=== PATIENT | male | born 1955 | race American Indian/Alaskan Native ===

== ENCOUNTER 2020-12-18 13:10 | Emergency (ER) | payer MEDICAID ==
[2020-12-18] MEDS ORDERED: SODIUM CHLORIDE 0.9% 500 ML 500 ML IV ONE (14:03)
--- NOTE | 2020-12-18 14:15 | Emergency Department Report ---
ED General Adult HPI - General Chief complaint: BP Check / Ring removal req Stated complaint: HYPOTENSION Time Seen by Provider: 12/18/20 13:48 Source: EMS Mode of arrival: Stretcher Limitations: Altered Mental Status - History of Present Illness Initial comments: 65-year-old male, history of diabetes, ESRD, presents to ED from dialysis with hypotension. BP was 90/50 at dialysis. History obtained from EMS. Per jail, patient is nonverbal. -: This afternoon Consistency: constant Treatments Prior to Arrival: none - Related Data Allergies Allergy/AdvReac Type Severity Reaction Status Date / Time No Known Allergies Allergy Unverified 12/18/20 14:02 ED Review of Systems ROS: Stated complaint: HYPOTENSION Other details as noted in HPI Comment: Unobtainable due to pts medical conditions ED Physical Exam - General Limitations: Altered Mental Status General appearance: alert, in no apparent distress - Head Head exam: Present: atraumatic, normocephalic - Eye Eye exam: Present: normal appearance - ENT ENT exam: Present: mucous membranes dry - Neck Neck exam: Present: normal inspection - Respiratory Respiratory exam: Present: normal lung sounds bilaterally. Absent: respiratory distress - Cardiovascular Cardiovascular Exam: Present: regular rate, normal rhythm - GI/Abdominal GI/Abdominal exam: Present: soft, other (PEG tube in place). Absent: distended, tenderness - Extremities Exam Extremities exam: Present: normal inspection - Neurological Exam Neurological exam: Present: alert, other (Nonverbal) - Psychiatric Psychiatric exam: Present: flat affect - Skin Skin exam: Present: warm, dry, intact, normal color ED Course Vital Signs 12/18/20 12/18/20 12/18/20 13:29 14:39 15:32 Temperature 97.7 F Pulse Rate 103 H 98 H 99 H Respiratory 22 20 20 Rate Blood Pressure 110/71 107/70 111/62 [l] O2 Sat by Pulse 99 99 100 Oximetry 12/18/20 12/18/20 16:59 17:29 Temperature Pulse Rate 99 H 98 H Respiratory 18 18 Rate Blood Pressure 122/80 122/80 [l] O2 Sat by Pulse 100 100 Oximetry ED Medical Decision Making - Lab Data Result diagrams: 12/18/20 14:16 12/18/20 14:16 - Medical Decision Making 65-year-old male presents to ED from dialysis with hypotension. Patient given 500 cc bolus here in the ED. O2 sats are normal. Patient is in no respiratory distress. Potassium is not elevated. Patient will be [facility] back [facility] at this time. Outpatient follow-up advised. - Differential Diagnosis Iatrogenic hypotension, hyperkalemia, pulmonary edema Critical care attestation.: If time is entered above; I have spent that time in minutes in the direct care of this critically ill patient, excluding procedure time. ED Disposition Clinical Impression: Hypotension of hemodialysis Disposition: DC-01 TO HOME OR SELFCARE Is pt being admited?: No Condition: Stable Instructions: Hypotension, [id number] Referrals: PRIMARY CARE, [Referring] - 3-5 Days Time of Disposition: 17:02
[2020-12-18 14:36] LABS: Basophils # (Auto) 0.1 K/mm3 (0.0-0.1); Basophils % (Auto) 0.4 % (0.0-1.8); Eosinophils % (Auto) 0.3 % (0.0-4.3); Hematocrit 33.9 % (35.5-45.6); Hemoglobin 11.1 gm/dl (11.8-15.2); Mean Corpuscular HGB Conc 33 % (32-34); Mean Corpuscular Volume 74 fl (84-94); Monocytes # (Auto) 1.4 K/mm3 (0.0-0.8); Monocytes % (Auto) 9.8 % (0.0-7.3); Platelet Count 457 K/mm3 (140-440); Red Blood Count 4.56 M/mm3 (3.65-5.03); Red Cell Distribution Width 19.8 % (13.2-15.2)
[2020-12-18 14:56] LABS: Calcium 8.6 mg/dL (8.4-10.2)
[2020-12-18 21:29] VITALS: BP 125/85
== END 2020-12-18 21:56 | disposition home or self-care (01) ==
LOC: ED 13:10
DX: I95.3 Hypotension of hemodialysis (principal)
CPT/HCPCS: 36415; 80048; 85025; 99284; J7040

== ENCOUNTER 2021-01-22 17:19 | Inpatient (IN) | payer MEDICAID ==
[2021-01-22] MEDS ORDERED: SODIUM CHLORIDE 0.9% 500 ML 500 ML IV ONE (17:47)
--- NOTE | 2021-01-22 17:51 | Emergency Department Report ---
HPI - General Chief Complaint: Fever Time Seen by Provider: 01/22/21 17:43 - HPI HPI: This is a 65-year-old -[place] male presents to the emergency department via EMS from [facility] after the patient was found to have a fever of 104 F. He did not receive dialysis and he was sent to the emergency department for further evaluation. EMS says that he went to dialysis from [facility], but we do not have any paperwork from them. The patient was here 1 time previously and it also appears that he came in from dialysis at that time. Per EMS, the patient is at his baseline mentation which includes being mostly nonverbal and nonambulatory. He did not receive any treatment prior to presentation. He has end-stage renal disease on hemodialysis on Monday/Monday/Monday and has a right subclavian CVC access. Patient also appears to have a history of anemia, secondary parathyroidism, and diabetes. ED Review of Systems ROS: Stated complaint: FEVER/SEPSIS Other details as noted in HPI Comment: Unobtainable due to pts medical conditions Physical Exam - Physical Exam Physical Exam: GENERAL: The patient is ill-appearing. HENT: Normocephalic. Atraumatic. Patient has moist mucous membranes. EYES: Pupils equal reactive to light bilaterally. NECK: Supple. Trachea is midline. CHEST/LUNGS: Slightly coarse. Mild tachypnea but no accessory muscle use. There is no respiratory distress noted. HEART/CARDIOVASCULAR: Regular. There is mild tachycardia. There is no murmur. ABDOMEN: Abdomen is soft, nontender. Patient has normal bowel sounds. There is no abdominal distention. SKIN: Skin is warm and dry. NEURO: Patient is awake but is nonverbal and does not follow commands. MUSCULOSKELETAL: There is no obvious deformity. ED Course - Consultations Consultation #1: 01/22/21 20:[address] Vieira, one of the mother helper on-call for [facility] nephrology. He agrees that the patient does not sound like he needs emergent dialysis and they will consult on the patient for possible dialysis in the morning. ED Medical Decision Making - Lab Data Result diagrams: 01/22/21 18:00 01/22/21 18:00 Lab Results 01/22/21 01/22/21 01/22/21 Range/Units 18:00 18:00 18:00 WBC 13.5 H (4.5-11.0) K/mm3 RBC 3.49 L (3.65-5.03) M/mm3 Hgb 8.2 L (11.8-15.2) gm/dl Hct 25.3 L (35.5-45.6) % MCV 73 L (84-94) fl MCH 23 L (28-32) pg MCHC 32 (32-34) % RDW 20.0 H (13.2-15.2) % Plt Count 416 (140-440) K/mm3 Lymph % (Auto) 6.0 L (13.4-35.0) % [place] % (Auto) 8.7 H (0.0-7.3) % Eos % (Auto) 0.0 (0.0-4.3) % Baso % (Auto) 0.2 (0.0-1.8) % Lymph # (Auto) 0.8 L (1.2-5.4) K/mm3 [place] # (Auto) 1.2 H (0.0-0.8) K/mm3 Eos # (Auto) 0.0 (0.0-0.4) K/mm3 Baso # (Auto) 0.0 (0.0-0.1) K/mm3 Seg Neutrophils % 85.1 H (40.0-70.0) % Seg Neutrophils # 11.5 H (1.8-7.7) K/mm3 Sodium 135 L (137-145) mmol/L Potassium 3.9 (3.6-5.0) mmol/L Chloride 94.8 L (98-107) mmol/L Carbon Dioxide 24 (22-30) mmol/L Anion Gap 20 mmol/L BUN 64 H (9-20) mg/dL Creatinine 3.7 H (0.8-1.3) mg/dL Estimated GFR 20 ml/min BUN/Creatinine Ratio 17 % Glucose 276 H (75-100) mg/dL Lactic Acid 3.40 H* (0.7-2.0) mmol/L Calcium 10.5 H (8.4-10.2) mg/dL Phosphorus (2.5-4.5) mg/dL Magnesium (1.7-2.3) mg/dL Total Bilirubin 0.30 (0.1-1.2) mg/dL AST 38 (5-40) units/L ALT 49 (7-56) units/L Alkaline Phosphatase 429 H (35-129) units/L NT-Pro-B Natriuret Pep (0-900) pg/mL Total Protein 6.8 (6.3-8.2) g/dL Albumin 2.9 L (3.9-5) g/dL Albumin/Globulin Ratio 0.7 % 01/22/21 01/22/21 01/22/21 Range/Units 18:00 18:00 19:03 WBC (4.5-11.0) K/mm3 RBC (3.65-5.03) M/mm3 Hgb (11.8-15.2) gm/dl Hct (35.5-45.6) % MCV (84-94) fl MCH (28-32) pg MCHC (32-34) % RDW (13.2-15.2) % Plt Count (140-440) K/mm3 Lymph % (Auto) (13.4-35.0) % [place] % (Auto) (0.0-7.3) % Eos % (Auto) (0.0-4.3) % Baso % (Auto) (0.0-1.8) % Lymph # (Auto) (1.2-5.4) K/mm3 [place] # (Auto) (0.0-0.8) K/mm3 Eos # (Auto) (0.0-0.4) K/mm3 Baso # (Auto) (0.0-0.1) K/mm3 Seg Neutrophils % (40.0-70.0) % Seg Neutrophils # (1.8-7.7) K/mm3 Sodium (137-145) mmol/L Potassium (3.6-5.0) mmol/L Chloride (98-107) mmol/L Carbon Dioxide (22-30) mmol/L Anion Gap mmol/L BUN (9-20) mg/dL Creatinine (0.8-1.3) mg/dL Estimated GFR ml/min BUN/Creatinine Ratio % Glucose (75-100) mg/dL Lactic Acid 3.00 H* (0.7-2.0) mmol/L Calcium (8.4-10.2) mg/dL Phosphorus 2.50 (2.5-4.5) mg/dL Magnesium 2.40 H (1.7-2.3) mg/dL Total Bilirubin (0.1-1.2) mg/dL AST (5-40) units/L ALT (7-56) units/L Alkaline Phosphatase (35-129) units/L NT-Pro-B Natriuret Pep 02210 H (0-900) pg/mL Total Protein (6.3-8.2) g/dL Albumin (3.9-5) g/dL Albumin/Globulin Ratio % /16/ Range/Units 20:24 WBC (4.5-11.0) K/mm3 RBC (3.65-5.03) M/mm3 Hgb (11.8-15.2) gm/dl Hct (35.5-45.6) % MCV (84-94) fl MCH (28-32) pg MCHC (32-34) % RDW (13.2-15.2) % Plt Count (140-440) K/mm3 Lymph % (Auto) (13.4-35.0) % [place] % (Auto) (0.0-7.3) % Eos % (Auto) (0.0-4.3) % Baso % (Auto) (0.0-1.8) % Lymph # (Auto) (1.2-5.4) K/mm3 [place] # (Auto) (0.0-0.8) K/mm3 Eos # (Auto) (0.0-0.4) K/mm3 Baso # (Auto) (0.0-0.1) K/mm3 Seg Neutrophils % (40.0-70.0) % Seg Neutrophils # (1.8-7.7) K/mm3 Sodium (137-145) mmol/L Potassium (3.6-5.0) mmol/L Chloride (98-107) mmol/L Carbon Dioxide (22-30) mmol/L Anion Gap mmol/L BUN (9-20) mg/dL Creatinine (0.8-1.3) mg/dL Estimated GFR ml/min BUN/Creatinine Ratio % Glucose (75-100) mg/dL Lactic Acid 2.30 H* (0.7-2.0) mmol/L Calcium (8.4-10.2) mg/dL Phosphorus (2.5-4.5) mg/dL Magnesium (1.7-2.3) mg/dL Total Bilirubin (0.1-1.2) mg/dL AST (5-40) units/L ALT (7-56) units/L Alkaline Phosphatase (35-129) units/L NT-Pro-B Natriuret Pep (0-900) pg/mL Total Protein (6.3-8.2) g/dL Albumin (3.9-5) g/dL Albumin/Globulin Ratio % - Radiology Data Radiology results: image reviewed interpreted by me: Chest x-ray does not show any acute process. There are no pleural effusions, obvious pneumonia and there is no pneumothorax. No widened mediastinum. - Medical Decision Making This patient presents to the emergency department from dialysis, without getting dialysis, after he was found to have a fever with a temperature of 104 F. The patient also presented with some tachypnea and tachycardia and a code sepsis was initiated. Chest x-ray did not show any pneumonia, pleural effusions, widened mediastinum, or any other acute process. Patient's labs show a leukocytosis of 13,000, lactic acidosis, renal insufficiency consistent with his end-stage renal disease on hemodialysis, anemia of chronic kidney disease, and an elevated proBNP. Patient was given some IV fluid, IV antibiotics, and rectal Tylenol. Nephrology was contacted and consulted and the patient will most likely receive dialysis in the morning. Patient meets SIRS criteria as I have not yet found a source of infection. He will be admitted to the hospital for further evaluation and treatment and was accepted for admission by the hospitalist, Dr. Masterson. Critical Care Time: No Critical care attestation.: If time is entered above; I have spent that time in minutes in the direct care of this critically ill patient, excluding procedure time. ED Disposition Clinical Impression: SIRS (systemic inflammatory response syndrome), ESRD needing dialysis, Lactic acidosis Anemia Qualifiers: Anemia type: unspecified type Qualified Code(s): D64.9 - Anemia, unspecified Disposition: OP ADMIT IP TO THIS HOSP Is pt being admited?: Yes Condition: Serious Time of Disposition: 21:26
--- NOTE | 2021-01-22 18:19 | XRay Report ---
CHEST 1 VIEW 01/22/2021 5:10 PM INDICATION / CLINICAL INFORMATION: Fever. COMPARISON: None available. FINDINGS: SUPPORT DEVICES: There is a right jugular CVL with the tip overlying the upper cavoatrial junction. HEART / MEDIASTINUM: The heart size and pulmonary vasculature are normal. LUNGS / PLEURA: No significant pulmonary or pleural abnormality. No pneumothorax. ADDITIONAL FINDINGS: No significant additional findings. IMPRESSION: No acute findings. There is no evidence of pneumonia. Signer Name: Logan Ayers MD Signed: 01/22/2021 6:14 PM Workstation Name: [id number]
[2021-01-22] MEDS ORDERED: ACETAMINOPHEN 650 MG RECT SUPP PR ONE (18:24)
[2021-01-22 18:53] LABS: Basophils % (Auto) 0.2 % (0.0-1.8); Hematocrit 25.3 % (35.5-45.6); Hemoglobin 8.2 gm/dl (11.8-15.2); Lymphocytes # (Auto) 0.8 K/mm3 (1.2-5.4); Mean Corpuscular HGB Conc 32 % (32-34); Mean Corpuscular Volume 73 fl (84-94); Monocytes # (Auto) 1.2 K/mm3 (0.0-0.8); Monocytes % (Auto) 8.7 % (0.0-7.3); Platelet Count 416 K/mm3 (140-440); Red Blood Count 3.49 M/mm3 (3.65-5.03)
[2021-01-22 19:01] LABS: Albumin 2.9 g/dL (3.9-5); Calcium 10.5 mg/dL (8.4-10.2)
[2021-01-22] MEDS ORDERED: cefTRIAXone/NS 1 GM/50 ML 1 GM/50 ML BAG IV ONE (21:25)
[2021-01-22] MEDS ORDERED: HYDROmorphone 1 MG/1 ML INJ IV PRN (21:38)
[2021-01-22] MEDS ORDERED: FAMOTIDINE 20 MG/2 ML INJ IV SCH (22:00)
--- NOTE | 2021-01-22 22:12 | History and Physical Report ---
History of Present Illness Date of examination: 01/22/21 Date of admission: 01/22/21 21:38 Chief complaint: Fever SIRS History of present illness: 65-year-old male with history of parathyroidism, diabetes, anemia, end-stage renal disease on hemodialysis was brought to the emergency room from [facility] (formerly [facility]) after the patient was found to have a fever of 104 F. He did not receive dialysis and he was sent to the emergency department for further evaluation. EMS says that he went to dialysis from [facility], but we do not have any paperwork from them. Per EMS, the patient is at his baseline mentation which includes being mostly nonverbal and nonambulatory. He did not receive any treatment prior to presentation. He has end-stage renal disease on hemodialysis on Monday/Monday/Monday and has a right subclavian CVC access. In the emergency room patient is found to have temperature of 103.3 and patient lactic acid is 3.40 Past History Past Medical History: anemia, diabetes (Parathyroidism), ESRD, other Medications and Allergies Allergies Allergy/AdvReac Type Severity Reaction Status Date / Time No Known Allergies Allergy Verified 01/22/21 21:44 Active Meds: Active Medications Acetaminophen (Acetaminophen 325 Mg Tab) 650 mg PO Q6H PRN PRN Reason: Pain, Mild (1-3) Famotidine (Famotidine 20 Mg/2 Ml Inj) 20 mg IV DAILY GLORIA Heparin Sodium (Porcine) (Heparin 5,000 Unit/1 Ml Vial) 5,000 unit SUB-Q Q12HR GLORIA Hydromorphone HCl (Hydromorphone 1 Mg/1 Ml Inj) 0.25 mg IV Q4H PRN PRN Reason: Pain, Moderate (4-6) Hydromorphone HCl (Hydromorphone 1 Mg/1 Ml Inj) 0.5 mg IV Q4H PRN PRN Reason: Pain , Severe (7-10) Ceftriaxone Sodium (Rocephin/Ns 2 Gm/100 Ml) 2 gm in 100 mls @ 200 mls/hr IV Q24H GLORIA; Protocol Azithromycin (Zithromax/Ns) 500 mg in 250 mls @ 250 mls/hr IV Q24H GLORIA; Protocol Review of Systems Constitutional: fever, chills Exam - Constitutional Vitals: Temp Pulse Resp BP Pulse Ox 103.3 F H 113 H 25 H 116/76 99 01/22/21 18:22 01/22/21 18:22 01/22/21 18:22 01/22/21 18:22 01/22/21 18:22 General appearance: Present: mild distress, cachectic - EENT Eyes: Present: PERRL ENT: hearing intact, clear oral mucosa - Neck Neck: Present: supple, normal ROM - Respiratory Respiratory effort: normal Respiratory: bilateral: CTA - Cardiovascular Heart Sounds: Present: S1 & S2. Absent: rub, click - Extremities Extremities: pulses symmetrical, No edema Peripheral Pulses: within normal limits - Abdominal General gastrointestinal: Present: soft, non-tender, non-distended, normal bowel sounds Male genitourinary: Present: normal - Integumentary Integumentary: Present: clear, warm, dry - Musculoskeletal Musculoskeletal: gait normal, strength equal bilaterally - Neurologic Neurologic: CNII-XII intact, moves all extremities Results - Labs CBC & Chem 7: 01/22/21 18:00 01/22/21 18:00 Labs: Laboratory Last Values WBC 13.5 K/mm3 (4.5-11.0) H 01/22/21 18:00 RBC 3.49 M/mm3 (3.65-5.03) L 01/22/21 18:00 Hgb 8.2 gm/dl (11.8-15.2) L 01/22/21 18:00 Hct 25.3 % (35.5-45.6) L 01/22/21 18:00 MCV 73 fl (84-94) L 01/22/21 18:00 MCH 23 pg (28-32) L 01/22/21 18:00 MCHC 32 % (32-34) 01/22/21 18:00 RDW 20.0 % (13.2-15.2) H 01/22/21 18:00 Plt Count 416 K/mm3 (140-440) 01/22/21 18:00 Lymph % (Auto) 6.0 % (13.4-35.0) L 01/22/21 18:00 [place] % (Auto) 8.7 % (0.0-7.3) H 01/22/21 18:00 Eos % (Auto) 0.0 % (0.0-4.3) 01/22/21 18:00 Baso % (Auto) 0.2 % (0.0-1.8) 01/22/21 18:00 Lymph # (Auto) 0.8 K/mm3 (1.2-5.4) L 01/22/21 18:00 [place] # (Auto) 1.2 K/mm3 (0.0-0.8) H 01/22/21 18:00 Eos # (Auto) 0.0 K/mm3 (0.0-0.4) 01/22/21 18:00 Baso # (Auto) 0.0 K/mm3 (0.0-0.1) 01/22/21 18:00 Seg Neutrophils % 85.1 % (40.0-70.0) H 01/22/21 18:00 Seg Neutrophils # 11.5 K/mm3 (1.8-7.7) H 01/22/21 18:00 Sodium 135 mmol/L (137-145) L 01/22/21 18:00 Potassium 3.9 mmol/L (3.6-5.0) 01/22/21 18:00 Chloride 94.8 mmol/L (98-107) L 01/22/21 18:00 Carbon Dioxide 24 mmol/L (22-30) 01/22/21 18:00 Anion Gap 20 mmol/L 01/22/21 18:00 BUN 64 mg/dL (9-20) H 01/22/21 18:00 Creatinine 3.7 mg/dL (0.8-1.3) H 01/22/21 18:00 Estimated GFR 20 ml/min 01/22/21 18:00 BUN/Creatinine Ratio 17 % 01/22/21 18:00 Glucose 276 mg/dL (75-100) H 01/22/21 18:00 Lactic Acid 2.30 mmol/L (0.7-2.0) H* 01/22/21 20:24 Calcium 10.5 mg/dL (8.4-10.2) H 01/22/21 18:00 Phosphorus 2.50 mg/dL (2.5-4.5) 01/22/21 18:00 Magnesium 2.40 mg/dL (1.7-2.3) H 01/22/21 18:00 Total Bilirubin 0.30 mg/dL (0.1-1.2) 01/22/21 18:00 AST 38 units/L (5-40) 01/22/21 18:00 ALT 49 units/L (7-56) 01/22/21 18:00 Alkaline Phosphatase 429 units/L (35-129) H 01/22/21 18:00 NT-Pro-B Natriuret Pep 98908 pg/mL (0-900) H 01/22/21 18:00 Total Protein 6.8 g/dL (6.3-8.2) 01/22/21 18:00 Albumin 2.9 g/dL (3.9-5) L 01/22/21 18:00 Albumin/Globulin Ratio 0.7 % 01/22/21 18:00 Microbiology: Microbiology 01/22/21 18:00 Peripheral/Venous Blood Culture - Preliminary Culture in Progress 01/22/21 18:00 Peripheral/Venous Blood Culture - Preliminary Culture in Progress - Imaging and Cardiology Chest x-ray: report reviewed Assessment and Plan VTE prophylaxis?: Chemical Plan of care discussed with patient/family: Yes - Patient Problems (1) Lactic acidosis Current Visit: Yes Status: Acute Plan to address problem: Admit the patient to the medical telemetry. Put the patient on Rocephin 2 g IV daily and Zithromax 500 mg IV daily. We will hold the IV fluid because of end- stage renal disease. We will repeat the lactic acid in 4 hours. Due to the blood culture urine culture. Repeat CBC BMP in the morning (2) SIRS (systemic inflammatory response syndrome) Current Visit: Yes Status: Acute Plan to address problem: Put the patient on Rocephin 2 g IV daily and Zithromax 500 mg IV daily. We will hold the IV fluid because of end-stage renal disease. We will repeat the lactic acid in 4 hours. Due to the blood culture urine culture. Repeat CBC BMP in the morning (3) ESRD needing dialysis Current Visit: Yes Status: Acute Plan to address problem: Avoid nephrotoxic toxic drug. We will consult nephrology for hemodialysis in the morning. We will monitor the blood pressure closely (4) Diabetes Current Visit: Yes Status: Acute Plan to address problem: We will put the patient on 1800 kcal ADA diet. We will continue the home medication we also put the patient on Humalog sliding scale moderate dose Accu- Chek before meals and at bedtime. Diabetic education (5) Anemia Current Visit: Yes Status: Acute Plan to address problem: Anemia due to chronic kidney disease we will monitor the patient closely repeat CBC in the morning (6) DVT prophylaxis Current Visit: Yes Status: Acute Plan to address problem: Heparin 5000 units subcu every 8 hours for DVT prophylaxis. Pepcid 20 mg IV every 12 hours for GI prophylaxis. Patient is a full code
[2021-01-22] MEDS ORDERED: DEXTROSE 50% IN WATER (25GM) 50 ML SYRINGE IV PRN (22:15)
[2021-01-22] MEDS ORDERED: SODIUM CHLORIDE 0.9% 100 ML IV PRN (22:38)
[2021-01-23] MEDS: AZITHROMYCIN/NS 500 MG/250 ML 500 MG/250 ML BAG IV SCH ×2 (00:30→23:07)
--- NOTE | 2021-01-23 09:31 | Consultation ---
History of Present Illness - Reason for Consult Consult date: 01/23/21 end stage renal disease - History of Present Illness This is a 65 year-old man with ESRD who presents for fever. Resides at [facility], was to go to ED but did not due to noted fevers at home. Patient usually dialyzes MWF at [facility]. Last HD 01/20. No recent issues with HD noted per chart review. Patient is mostly nonverbal at baseline and unable to provide further history. Does have CVC Past History Past Medical History: anemia, diabetes (Parathyroidism), ESRD, other Medications and Allergies Allergies Allergy/AdvReac Type Severity Reaction Status Date / Time No Known Allergies Allergy Verified 01/22/21 21:44 Active Meds: Active Medications Acetaminophen (Acetaminophen 325 Mg Tab) 650 mg PO Q6H PRN PRN Reason: Pain, Mild (1-3) Dextrose (Dextrose 50% In Water (25gm) 50 Ml Syringe) 50 ml IV Q30MIN PRN; Protocol PRN Reason: Hypoglycemia Famotidine (Famotidine 20 Mg/2 Ml Inj) 20 mg IV DAILY GLORIA Last Admin: 01/23/21 00:00 Dose: 20 mg Documented by: Heparin Sodium (Porcine) (Heparin 5,000 Unit/1 Ml Vial) 5,000 unit SUB-Q Q12HR GLORIA Last Admin: 01/23/21 00:00 Dose: 5,000 unit Documented by: Hydromorphone HCl (Hydromorphone 1 Mg/1 Ml Inj) 0.25 mg IV Q4H PRN PRN Reason: Pain, Moderate (4-6) Hydromorphone HCl (Hydromorphone 1 Mg/1 Ml Inj) 0.5 mg IV Q4H PRN PRN Reason: Pain , Severe (7-10) Ceftriaxone Sodium (Rocephin/Ns 2 Gm/100 Ml) 2 gm in 100 mls @ 200 mls/hr IV Q24H GLORIA; Protocol Last Admin: 01/23/21 00:00 Dose: 200 mls/hr Documented by: Azithromycin (Zithromax/Ns) 500 mg in 250 mls @ 250 mls/hr IV Q24H GLORIA; Protocol Last Admin: 01/23/21 00:30 Dose: 250 mls/hr Documented by: Sodium Chloride (Nacl 0.9%) 100 mls @ 999 mls/hr IV SAROJ PRN PRN Reason: Hypotension Insulin Human Lispro (Insulin Lispro 100 Unit/Ml) 0 unit SUB-Q ACHS GLORIA; Protocol Review of Systems ROS unobtainable: due to mental status Exam - Vital Signs Vital signs: Vital Signs Temp Pulse Resp BP Pulse Ox 103.3 F H 113 H 25 H 116/76 99 01/22/21 18:22 01/22/21 18:22 01/22/21 18:22 01/22/21 18:22 01/22/21 18:22 - Physical Exam Narrative exam: Constitutional: no acute distress Head: NC/AT Neck: supple Lungs: clear to auscultation CV: RRR, no M/R/G Abdomen: soft, non-tender, bowel sounds present Back: nontender Extremities: no edema, pulses WNL Skin: intact Neuro: nonverbal Results - Lab Results 01/22/21 18:00 01/22/21 18:00 Most recent lab results Calcium 10.5 mg/dL (8.4-10.2) H 01/22/21 18:00 Phosphorus 2.50 mg/dL (2.5-4.5) 01/22/21 18:00 Magnesium 2.40 mg/dL (1.7-2.3) H 01/22/21 18:00 Assessment and Plan This is a 65 year old man who presents with fever # ESRD: HD today for toxin clearance, electrolyte and volume management; usually HD MWF, will plan to continue inpatient MWF or prn - daily labs - renally dose meds - avoid nephrotoxins - renal diet - emergency verbal consent obtained for HD as he is chronic HD patient with our team # Anemia: last hemoglobin 8.2, ESAs prn with HD # HTN: UF as tolerated, will need to be cautious. BP has been soft # Secondary Hyperparathyroidism: continue home binders as needed # DM # Sepsis/Lactic Acidosis/Fevers: management per primary, blood cultures pending
[2021-01-23] MEDS: INSULIN LISPRO 100 UNIT/ML SUB-Q SCH ×4 (10:50→23:29)
[2021-01-23] MEDS: FAMOTIDINE 20 MG/2 ML INJ IV SCH ×2 (10:57)
[2021-01-23] MEDS: HEPARIN 5,000 UNIT/1 ML VIAL SUB-Q SCH ×3 (10:57→23:06)
[2021-01-23] MEDS ORDERED: LIPASE 10,500/PROTEASE 25,000/AMYLASE 43,750 (UNITS) DR CAP FEEDTUBE PRN (11:34)
[2021-01-23] MEDS ORDERED: SODIUM BICARBONATE 325 MG TAB FEEDTUBE PRN (11:34)
[2021-01-23] MEDS ORDERED: SIMPLE SYRUP 15 ML FEEDTUBE PRN ×2 (11:34)
--- NOTE | 2021-01-23 12:22 | Progress Note ---
Assessment and Plan Assessment and plan: Assessment and plan (1) Sepsis Fever on admission elevated leukocytosis. Blood culture and urine culture pending on Rocephin 2 g IV daily and Zithromax 500 mg IV daily. Lactic acid downtrending Repeat CBC BMP in the morning (2) Stage IV decubitus ulcer Possible source, will obtain wound care consult and follow recommendations Likely needs debridement, consulted general surgery for evaluation. Plan is to take patient to the OR tomorrow N.p.o. at midnight (3) ESRD needing dialysis Avoid nephrotoxic toxic drug. Nephrology following hemodialysis in the morning. We will monitor the blood pressure closely Monitor I's and O's Monitor electrolytes on BMP (4) type 2 diabetes with hyperglycemia ADA diet Hold home medication Sliding scale insulin Accu-Cheks [facility] Diabetic education (5) Anemia due to chronic kidney disease Anemia due to chronic kidney disease we will monitor the patient closely repeat CBC in the morning Follow recommendations of nephrology. (6) Secondary hyperparathyroidism Secondary hyperparathyroidism due to ESRD. Will follow nephro recommendation (6) DVT prophylaxis Heparin 5000 units subcu every 8 hours for DVT prophylaxis. Pepcid 20 mg IV every 12 hours for GI prophylaxis. (7) Advance care planning Diet: PEG tube feeds, Nepro at 45 cc an hour with free water flush, n.p.o. at midnight Dispo: Patient will go to the OR tomorrow for debridement. Currently attempting to find family as patient is nonverbal. Have called [facility] that patient presented from and awaiting response. Total Time Spent with Patient (Minutes): 35 History Interval history: Evaluated patient this morning. Patient is nonverbal. He is alert especially when his name is recalled. Discussed with care team plan for today. Hospitalist Physical - Physical exam Narrative exam: Physical Exam: GENERAL APPEARANCE: Thin ill-appearing, alert and cooperative, and appears to be in no acute distress. HEAD: normocephalic. EYES: PERRL, EOMI. Vision is grossly intact. EARS: No gross deformities NOSE: No nasal discharge. THROAT: No inflammation, swelling, exudate, or lesions. NECK: Neck supple, non-tender without lymphadenopathy, masses or thyromegaly. CARDIAC: Normal S1 and S2. No S3, S4 or murmurs. Rhythm is regular. There is no peripheral edema, cyanosis or pallor. Extremities are warm and well perfused. Capillary refill is less than 2 seconds. No carotid bruits. LUNGS: Clear to auscultation and percussion without rales, rhonchi, wheezing or diminished breath sounds. ABDOMEN: PEG tube in place positive bowel sounds. Soft, nondistended, nontender. No guarding or rebound. No masses. MUSKULOSKELETAL: Adequately aligned spine. ROM intact spine and extremities. No joint erythema or tenderness. BACK: Stage IV sacral decubitus ulcer EXTREMITIES: No significant deformity or joint abnormality. No edema. Peripheral pulses intact. No varicosities. NEUROLOGICAL: Unable to properly assess PSYCHIATRIC: The mental examination revealed the patient alert, nonverbal does not follow commands, oriented x0 - Constitutional Vitals: Temp Pulse Resp BP Pulse Ox 98.6 F 93 H 18 105/62 100 01/23/21 08:53 01/23/21 08:53 01/23/21 08:53 01/23/21 08:53 01/23/21 08:53 General appearance: Present: mild distress, cachectic Results - Labs CBC & Chem 7: 01/22/21 18:00 01/22/21 18:00 Labs: Laboratory Last Values WBC 13.5 K/mm3 (4.5-11.0) H 01/22/21 18:00 RBC 3.49 M/mm3 (3.65-5.03) L 01/22/21 18:00 Hgb 8.2 gm/dl (11.8-15.2) L 01/22/21 18:00 Hct 25.3 % (35.5-45.6) L 01/22/21 18:00 MCV 73 fl (84-94) L 01/22/21 18:00 MCH 23 pg (28-32) L 01/22/21 18:00 MCHC 32 % (32-34) 01/22/21 18:00 RDW 20.0 % (13.2-15.2) H 01/22/21 18:00 Plt Count 416 K/mm3 (140-440) 01/22/21 18:00 Lymph % (Auto) 6.0 % (13.4-35.0) L 01/22/21 18:00 [place] % (Auto) 8.7 % (0.0-7.3) H 01/22/21 18:00 Eos % (Auto) 0.0 % (0.0-4.3) 01/22/21 18:00 Baso % (Auto) 0.2 % (0.0-1.8) 01/22/21 18:00 Lymph # (Auto) 0.8 K/mm3 (1.2-5.4) L 01/22/21 18:00 [place] # (Auto) 1.2 K/mm3 (0.0-0.8) H 01/22/21 18:00 Eos # (Auto) 0.0 K/mm3 (0.0-0.4) 01/22/21 18:00 Baso # (Auto) 0.0 K/mm3 (0.0-0.1) 01/22/21 18:00 Seg Neutrophils % 85.1 % (40.0-70.0) H 01/22/21 18:00 Seg Neutrophils # 11.5 K/mm3 (1.8-7.7) H 01/22/21 18:00 Sodium 135 mmol/L (137-145) L 01/22/21 18:00 Potassium 3.9 mmol/L (3.6-5.0) 01/22/21 18:00 Chloride 94.8 mmol/L (98-107) L 01/22/21 18:00 Carbon Dioxide 24 mmol/L (22-30) 01/22/21 18:00 Anion Gap 20 mmol/L 01/22/21 18:00 BUN 64 mg/dL (9-20) H 01/22/21 18:00 Creatinine 3.7 mg/dL (0.8-1.3) H 01/22/21 18:00 Estimated GFR 20 ml/min 01/22/21 18:00 BUN/Creatinine Ratio 17 % 01/22/21 18:00 Glucose 276 mg/dL (75-100) H 01/22/21 18:00 POC Glucose 114 mg/dL (70-105) H 01/23/21 11:11 Lactic Acid 1.10 mmol/L (0.7-2.0) 01/23/21 10:29 Calcium 10.5 mg/dL (8.4-10.2) H 01/22/21 18:00 Phosphorus 2.50 mg/dL (2.5-4.5) 01/22/21 18:00 Magnesium 2.40 mg/dL (1.7-2.3) H 01/22/21 18:00 Total Bilirubin 0.30 mg/dL (0.1-1.2) 01/22/21 18:00 AST 38 units/L (5-40) 01/22/21 18:00 ALT 49 units/L (7-56) 01/22/21 18:00 Alkaline Phosphatase 429 units/L (35-129) H 01/22/21 18:00 NT-Pro-B Natriuret Pep 86646 pg/mL (0-900) H 01/22/21 18:00 Total Protein 6.8 g/dL (6.3-8.2) 01/22/21 18:00 Albumin 2.9 g/dL (3.9-5) L 01/22/21 18:00 Albumin/Globulin Ratio 0.7 % 01/22/21 18:00 Blood Type O POSITIVE 01/23/21 01:00 Antibody Screen Negative 01/23/21 01:00 Microbiology: Microbiology 01/22/21 18:00 Peripheral/Venous Blood Culture - Preliminary Culture in Progress 01/22/21 18:00 Peripheral/Venous Blood Culture - Preliminary Culture in Progress [place]/IV: Voiding Method Condom Catheter Active Medications - Current Medications Current Medications: Generic Name Dose Route Start Last Admin Trade Name Freq PRN Reason Stop Dose Admin Acetaminophen 650 mg 01/22/21 21:38 Acetaminophen 325 Mg Tab PO Q6H PRN Pain, Mild (1-3) Lipase/Protease/Amylase 1 each 01/23/21 11:34 Lipase 10,500/Protease 25,000/Amylase 43,750 (Units) Dr Sorto FEEDTUBE PRN PRN For Clogged Feeding Tube Dextrose 50 ml 01/22/21 22:15 Dextrose 50% In Water (25gm) 50 Ml Syringe IV Q30MIN PRN Hypoglycemia Protocol Famotidine 20 mg 01/22/21 22:00 01/23/21 10:57 Famotidine 20 Mg/2 Ml Inj IV 20 mg DAILY GLORIA Administration Heparin Sodium (Porcine) 5,000 unit 01/22/21 22:00 01/23/21 10:57 Heparin 5,000 Unit/1 Ml Vial SUB-Q 5,000 unit Q12HR GLORIA Administration Hydromorphone HCl 0.25 mg 01/22/21 21:38 Hydromorphone 1 Mg/1 Ml Inj IV Q4H PRN Pain, Moderate (4-6) Hydromorphone HCl 0.5 mg 01/22/21 21:38 Hydromorphone 1 Mg/1 Ml Inj IV Q4H PRN Pain , Severe (7-10) Ceftriaxone Sodium 2 gm in 100 mls @ 200 mls/hr 01/22/21 22:00 01/23/21 00:00 Rocephin/Ns 2 Gm/100 Ml IV 200 mls/hr Q24H GLORIA Administration Protocol Azithromycin 500 mg in 250 mls @ 250 mls/hr 01/22/21 22:00 01/23/21 00:30 Zithromax/Ns IV 250 mls/hr Q24H GLORIA Administration Protocol Sodium Chloride 100 mls @ 999 mls/hr 01/22/21 22:38 Nacl 0.9% IV SAORJ PRN Hypotension Insulin Human Lispro 0 unit 01/23/21 07:30 01/23/21 11:38 Insulin Lispro 100 Unit/Ml SUB-Q Not Given ACHS GLORIA Protocol Simple Syrup 15 ml 01/23/21 11:34 Simple Syrup 15 Ml FEEDTUBE PRN PRN Hypoglycemia Simple Syrup 30 ml 01/23/21 11:34 Simple Syrup 15 Ml FEEDTUBE PRN PRN Hypoglycemia Sodium Bicarbonate 325 mg 01/23/21 11:34 Sodium Bicarbonate 325 Mg Tab FEEDTUBE PRN PRN For Clogged Feeding Tube Nutrition/Malnutrition Assess - Dietary Evaluation Nutrition/Malnutrition Findings: Nutrition Notes Start: 01/23/21 11:13 Freq: Status: Active Protocol: Document 01/23/21 11:13 CW (Rec: 01/23/21 11:22 CW [id number]) Nutrition Notes Need for Assessment generated from: MD Order Initial or Follow up Assessment Current Diagnosis CKD (stage V CKD),Diabetes Other Pertinent Diagnosis on HD, latic acidosis, Current Diet Renal diet Labs/Tests BG 276 Na 135 BUN 64 Cr 3.7 Pertinent Medications Humalog NS 1L Height 5 ft 8 in Weight 83.915 kg [place] Body Weight (kg) 70.00 BMI 28.1 Weight Status Appropriate Subjective/Other Information MD consult for diet education. Pt is a resident of a SNF and primarily nonverbal. Diet education appropriate. Admendment: MD consult for TF. Per RN , SNF reports a usage of PEG Burn Absent Trauma Absent GI Symptoms None Skin Integrity/Comment pressure ulcer present Minimum of two criteria No physical signs of malnutrition #1 Nutrition Diagnosis Increased nutrient needs ( specify in comment below) Comments: protein Etiology renal insufficiency wound healing As Evidenced by Signs and Symptoms pt on HD pt with large pressure ulcer Is patient on ventilator? No Is Patient Ambulatory and/or Out of Bed No REE-([facility]-confined to bed) 2869.516 Calculation Used for Recommendations Kcal/kg Additional Notes protein needs: >101g (>1.2 g/ kgBW) fluid needs: 1000 - 1500 ml/ kcal Nutrition Intervention Change Diet Order: Initiate TF regimen Nutrition Support: Nepro at 45 ml/hr with a free water flush of 100 ml q4h for hyponatremia. Once hyponatremia resolves, resume flush of 200 ml q4h Kcal 1,944 Protein (gm) 87 Fluid (mL) 785 Teaching Recipient Patient Response to Teaching Unable to comprehend Barriers to Learning Cognitive/Verbal,Environmental RD phone number provided No Patient aware of follow up options Yes Goal #1 Meet at least 75% of kcal and protein needs Goal #2 wound healing Anticipated Discharge Needs: Nepro at 45 ml/hr with a free water flush of 200 ml q4h Follow-Up By: 01/25/21 Additional Comments F/U TF start and tolerance
[2021-01-23 15:46] LABS: Hepatitis B Surface Antigen Non-Reactive (Negative); Hepatitis C Virus Antibody Reactive (NonReactive)
[2021-01-23] MEDS: ACETAMINOPHEN 325 MG TAB PO PRN (23:06)
[2021-01-23] MEDS: cefTRIAXone/NS 2 GM/100 ML 2 GM/100 ML BAG IV SCH ×2 (23:07)
[2021-01-24 06:23] LABS: Basophils % (Auto) 0.4 % (0.0-1.8); Eosinophils # (Auto) 0.1 K/mm3 (0.0-0.4); Eosinophils % (Auto) 0.5 % (0.0-4.3); Hematocrit 23.6 % (35.5-45.6); Hemoglobin 7.7 gm/dl (11.8-15.2); Lymphocytes # (Auto) 0.7 K/mm3 (1.2-5.4); Lymphocytes % (Auto) 6.7 % (13.4-35.0); Mean Corpuscular HGB Conc 33 % (32-34); Mean Corpuscular Volume 73 fl (84-94); Monocytes # (Auto) 1.3 K/mm3 (0.0-0.8); Monocytes % (Auto) 12.1 % (0.0-7.3); Platelet Count 399 K/mm3 (140-440); Red Blood Count 3.25 M/mm3 (3.65-5.03); Red Cell Distribution Width 19.8 % (13.2-15.2)
[2021-01-24 07:12] LABS: Albumin 2.7 g/dL (3.9-5); Calcium 9.3 mg/dL (8.4-10.2)
[2021-01-24] MEDS ORDERED: POTASSIUM CHLORIDE 20 MEQ PACKET FEEDTUBE ONE ×3 (07:27→10:00)
[2021-01-24] MEDS: POTASSIUM CHLORIDE 10 MEQ 10 MEQ/100 ML BAG IV SCH ×5 (08:20→14:57)
--- NOTE | 2021-01-24 09:12 | Progress Note ---
Assessment and Plan This is a 65 year old man who presents with fever # ESRD: HD yesterday for toxin clearance, electrolyte and volume management; usually HD MWF, will plan to continue inpatient // or prn for now - daily labs - renally dose meds - avoid nephrotoxins - renal diet - emergency verbal consent obtained for HD as he is chronic HD patient with our team # Hypokalemia: K <3 noted today, agree with repletion, will switch to 3K bath for HD # Anemia: last hemoglobin 7.7, ESAs prn with HD # HTN: UF as tolerated, will need to be cautious. BP has been soft # Secondary Hyperparathyroidism: continue home binders as needed # DM # Sepsis/Lactic Acidosis/Fevers: management per primary, blood cultures NGTD, suspect decubitus ulcer as source, note plans for debridement Subjective Date of service: 01/24/21 Interval history: No clinical changes, patient resting in bed. Had HD yesterday, no issues noted Objective - Exam Narrative Exam: Constitutional: no acute distress Head: NC/AT Neck: supple Lungs: clear to auscultation CV: RRR, no M/R/G Abdomen: soft, non-tender, bowel sounds present Back: nontender Extremities: no edema, pulses WNL Skin: intact Neuro: nonverbal - Vital Signs Vital signs: Vital Signs - 12hr 01/23/21 01/23/21 01/24/21 22:30 23:00 00:14 Temperature 100.2 F H Pulse Rate 102 H 103 H 98 H Respiratory 17 Rate Blood Pressure 115/74 O2 Sat by Pulse 100 Oximetry 01/24/21 01/24/21 01/24/21 01:56 03:24 04:00 Temperature 98.7 F 97.6 F Pulse Rate 96 H 95 H Respiratory 18 Rate Blood Pressure 114/75 O2 Sat by Pulse 100 Oximetry - Lab 01/24/21 05:10 01/24/21 05:10 Most recent lab results Calcium 9.3 mg/dL (8.4-10.2) 01/24/21 05:10 Phosphorus 2.50 mg/dL (2.5-4.5) 01/22/21 18:00 Magnesium 2.40 mg/dL (1.7-2.3) H 01/22/21 18:00 Medications & Allergies - Medications Allergies/Adverse Reactions: Allergies No Known Allergies Allergy (Verified 01/22/21 21:44) Active Medications: Generic Name Dose Route Start Last Admin Trade Name Freq PRN Reason Stop Dose Admin Acetaminophen 650 mg 01/22/21 21:38 01/23/21 23:06 Acetaminophen 325 Mg Tab PO 650 mg Q6H PRN Administration Pain, Mild (1-3) Lipase/Protease/Amylase 1 each 01/23/21 11:34 01/23/21 23:43 Lipase 10,500/Protease 25,000/Amylase 43,750 (Units) Dr Sorto FEEDTUBE 1 each PRN PRN Administration For Clogged Feeding Tube Dextrose 50 ml 01/22/21 22:15 Dextrose 50% In Water (25gm) 50 Ml Syringe IV Q30MIN PRN Hypoglycemia Protocol Famotidine 20 mg 01/22/21 22:00 01/23/21 10:57 Famotidine 20 Mg/2 Ml Inj IV 20 mg DAILY GLORIA Administration Heparin Sodium (Porcine) 5,000 unit 01/22/21 22:00 01/23/21 23:06 Heparin 5,000 Unit/1 Ml Vial SUB-Q 5,000 unit Q12HR GLORIA Administration Hydromorphone HCl 0.25 mg 01/22/21 21:38 Hydromorphone 1 Mg/1 Ml Inj IV Q4H PRN Pain, Moderate (4-6) Hydromorphone HCl 0.5 mg 01/22/21 21:38 Hydromorphone 1 Mg/1 Ml Inj IV Q4H PRN Pain , Severe (7-10) Ceftriaxone Sodium 2 gm in 100 mls @ 200 mls/hr 01/22/21 22:00 01/23/21 23:07 Rocephin/Ns 2 Gm/100 Ml IV 200 mls/hr Q24H GLORIA Administration Protocol Azithromycin 500 mg in 250 mls @ 250 mls/hr 01/22/21 22:00 01/23/21 23:07 Zithromax/Ns IV 250 mls/hr Q24H GLORIA Administration Protocol Sodium Chloride 100 mls @ 999 mls/hr 01/22/21 22:38 Nacl 0.9% IV SAROJ PRN Hypotension Potassium Chloride 10 meq in 100 mls @ 100 mls/hr 01/24/21 08:00 Kcl 10meq/100ml IV 01/24/21 13:59 Q1H GLORIA Insulin Human Lispro 0 unit 01/23/21 07:30 01/23/21 23:29 Insulin Lispro 100 Unit/Ml SUB-Q 1 unit ACHS GLORIA Administration Protocol Simple Syrup 15 ml 01/23/21 11:34 Simple Syrup 15 Ml FEEDTUBE PRN PRN Hypoglycemia Simple Syrup 30 ml 01/23/21 11:34 Simple Syrup 15 Ml FEEDTUBE PRN PRN Hypoglycemia Sodium Bicarbonate 325 mg 01/23/21 11:34 01/23/21 23:43 Sodium Bicarbonate 325 Mg Tab FEEDTUBE 325 mg PRN PRN Administration For Clogged Feeding Tube
[2021-01-24] MEDS: FAMOTIDINE 20 MG/2 ML INJ IV SCH (10:49)
[2021-01-24] MEDS: HEPARIN 5,000 UNIT/1 ML VIAL SUB-Q SCH ×2 (10:49→22:55)
[2021-01-24] MEDS: INSULIN LISPRO 100 UNIT/ML SUB-Q SCH ×4 (12:09→22:55)
--- NOTE | 2021-01-24 12:09 | Consultation ---
History of Present Illness Consult date: 01/24/21 Chief complaint: Sacral pressure ulcer - History of present illness History of present illness: 65 yo non-communicative male admitted with sepsis and sacral pressure ulcer. Past History Past Medical History: anemia, diabetes (Parathyroidism), ESRD, other Medications and Allergies Allergies Allergy/AdvReac Type Severity Reaction Status Date / Time No Known Allergies Allergy Verified 01/22/21 21:44 Active Meds: Active Medications Acetaminophen (Acetaminophen 325 Mg Tab) 650 mg PO Q6H PRN PRN Reason: Pain, Mild (1-3) Last Admin: 01/23/21 23:06 Dose: 650 mg Documented by: Lipase/Protease/Amylase (Lipase 10,500/Protease 25,000/Amylase 43,750 (Units) Dr Sorto) 1 each FEEDTUBE PRN PRN PRN Reason: For Clogged Feeding Tube Last Admin: 01/23/21 23:43 Dose: 1 each Documented by: Dextrose (Dextrose 50% In Water (25gm) 50 Ml Syringe) 50 ml IV Q30MIN PRN; Protocol PRN Reason: Hypoglycemia Famotidine (Famotidine 20 Mg/2 Ml Inj) 20 mg IV DAILY GLORIA Last Admin: 01/24/21 10:49 Dose: 20 mg Documented by: Heparin Sodium (Porcine) (Heparin 5,000 Unit/1 Ml Vial) 5,000 unit SUB-Q Q12HR GLORIA Last Admin: 01/24/21 10:49 Dose: 5,000 unit Documented by: Hydromorphone HCl (Hydromorphone 1 Mg/1 Ml Inj) 0.25 mg IV Q4H PRN PRN Reason: Pain, Moderate (4-6) Hydromorphone HCl (Hydromorphone 1 Mg/1 Ml Inj) 0.5 mg IV Q4H PRN PRN Reason: Pain , Severe (7-10) Ceftriaxone Sodium (Rocephin/Ns 2 Gm/100 Ml) 2 gm in 100 mls @ 200 mls/hr IV Q24H GLORIA; Protocol Last Admin: 01/23/21 23:07 Dose: 200 mls/hr Documented by: Azithromycin (Zithromax/Ns) 500 mg in 250 mls @ 250 mls/hr IV Q24H GLORIA; Protocol Last Admin: 01/23/21 23:07 Dose: 250 mls/hr Documented by: Sodium Chloride (Nacl 0.9%) 100 mls @ 999 mls/hr IV SAROJ PRN PRN Reason: Hypotension Potassium Chloride (Kcl 10meq/100ml) 10 meq in 100 mls @ 100 mls/hr IV Q1H GLORIA Stop: 01/24/21 13:59 Last Admin: 01/24/21 10:50 Dose: 100 mls/hr Documented by: Insulin Human Lispro (Insulin Lispro 100 Unit/Ml) 0 unit SUB-Q ACHS GLORIA; Protocol Last Admin: 01/23/21 23:29 Dose: 1 unit Documented by: Simple Syrup (Simple Syrup 15 Ml) 15 ml FEEDTUBE PRN PRN PRN Reason: Hypoglycemia Simple Syrup (Simple Syrup 15 Ml) 30 ml FEEDTUBE PRN PRN PRN Reason: Hypoglycemia Sodium Bicarbonate (Sodium Bicarbonate 325 Mg Tab) 325 mg FEEDTUBE PRN PRN PRN Reason: For Clogged Feeding Tube Last Admin: 01/23/21 23:43 Dose: 325 mg Documented by: Review of Systems ROS unobtainable: due to mental status Exam Vital Signs Temp Pulse Resp BP Pulse Ox 103.3 F H 113 H 25 H 116/76 99 01/22/21 18:22 01/22/21 18:22 01/22/21 18:22 01/22/21 18:22 01/22/21 18:22 - General physical appearance Positive: well developed, well nourished, no distress - Eyes Positive: PERRL, normal occular movement - ENT Positive: normal pinna, normal nares, normal mucosa, no hearing loss, no con gestion - Neck Positive: no masses, no bruits, trachea midline, no venous distension - Respiratory Positive: normal expansion, normal respiratory effort, clear to auscultation - Cardiovascular Rhythm: regular Heart Sounds: Present: S1 & S2. Absent: rub, click - Extremities Extremities: no ischemia, pulses symmetrical, No edema - Breasts Breasts: normal, no mass, no skin changes - Abdomen Abdomen: Present: soft, bowel sounds normal. Absent: tender, distended Hernia: none - Genitourinary Male Genitourinary: normal Female Genitourinary: normal - Integumentary no rash, no growths, no abnormal pigmentation, other (There is a 8 X 8 X 2 cm relatively clean, granulating stage 4 sacral pressure ulcer. This is not the source of the pt's sepsis. See photos.) Results - Labs 01/24/21 05:10 01/24/21 05:10 Abnormal lab results 01/23/21 01/23/21 01/24/21 Range/Units 14:47 23:09 05:10 RBC 3.25 L (3.65-5.03) M/mm3 Hgb 7.7 L (11.8-15.2) gm/dl Hct 23.6 L (35.5-45.6) % MCV 73 L (84-94) fl MCH 24 L (28-32) pg RDW 19.8 H (13.2-15.2) % Lymph % (Auto) 6.7 L (13.4-35.0) % [place] % (Auto) 12.1 H (0.0-7.3) % Lymph # (Auto) 0.7 L (1.2-5.4) K/mm3 [place] # (Auto) 1.3 H (0.0-0.8) K/mm3 Seg Neutrophils % 80.3 H (40.0-70.0) % Seg Neutrophils # 8.7 H (1.8-7.7) K/mm3 Potassium (3.6-5.0) mmol/L BUN (9-20) mg/dL Creatinine (0.8-1.3) mg/dL Glucose (75-100) mg/dL POC Glucose 186 H (70-105) mg/dL AST (5-40) units/L Alkaline Phosphatase (35-129) units/L Total Protein (6.3-8.2) g/dL Albumin (3.9-5) g/dL Hepatitis C Antibody Reactive A (NonReactive) 01/24/21 01/24/21 01/24/21 Range/Units 05:10 07:35 11:58 RBC (3.65-5.03) M/mm3 Hgb (11.8-15.2) gm/dl Hct (35.5-45.6) % MCV (84-94) fl MCH (28-32) pg RDW (13.2-15.2) % Lymph % (Auto) (13.4-35.0) % [place] % (Auto) (0.0-7.3) % Lymph # (Auto) (1.2-5.4) K/mm3 [place] # (Auto) (0.0-0.8) K/mm3 Seg Neutrophils % (40.0-70.0) % Seg Neutrophils # (1.8-7.7) K/mm3 Potassium 2.7 L* D (3.6-5.0) mmol/L BUN 26 H (9-20) mg/dL Creatinine 2.2 H (0.8-1.3) mg/dL Glucose 272 H (75-100) mg/dL POC Glucose 280 H 269 H (70-105) mg/dL AST 55 H (5-40) units/L Alkaline Phosphatase 397 H (35-129) units/L Total Protein 6.2 L (6.3-8.2) g/dL Albumin 2.7 L (3.9-5) g/dL Hepatitis C Antibody (NonReactive) Diabetes panel 01/24/21 Range/Units 05:10 Sodium 138 (137-145) mmol/L Potassium 2.7 L* D (3.6-5.0) mmol/L Chloride 98.0 (98-107) mmol/L Carbon Dioxide 30 (22-30) mmol/L BUN 26 H (9-20) mg/dL Creatinine 2.2 H (0.8-1.3) mg/dL Glucose 272 H (75-100) mg/dL Calcium 9.3 (8.4-10.2) mg/dL AST 55 H (5-40) units/L ALT 47 (7-56) units/L Alkaline Phosphatase 397 H (35-129) units/L Total Protein 6.2 L (6.3-8.2) g/dL Albumin 2.7 L (3.9-5) g/dL Calcium panel 01/24/21 Range/Units 05:10 Calcium 9.3 (8.4-10.2) mg/dL Albumin 2.7 L (3.9-5) g/dL Pituitary panel 01/24/21 Range/Units 05:10 Sodium 138 (137-145) mmol/L Potassium 2.7 L* D (3.6-5.0) mmol/L Chloride 98.0 (98-107) mmol/L Carbon Dioxide 30 (22-30) mmol/L BUN 26 H (9-20) mg/dL Creatinine 2.2 H (0.8-1.3) mg/dL Glucose 272 H (75-100) mg/dL Calcium 9.3 (8.4-10.2) mg/dL Adrenal panel 01/24/21 Range/Units 05:10 Sodium 138 (137-145) mmol/L Potassium 2.7 L* D (3.6-5.0) mmol/L Chloride 98.0 (98-107) mmol/L Carbon Dioxide 30 (22-30) mmol/L BUN 26 H (9-20) mg/dL Creatinine 2.2 H (0.8-1.3) mg/dL Glucose 272 H (75-100) mg/dL Calcium 9.3 (8.4-10.2) mg/dL Total Bilirubin 0.20 (0.1-1.2) mg/dL AST 55 H (5-40) units/L ALT 47 (7-56) units/L Alkaline Phosphatase 397 H (35-129) units/L Total Protein 6.2 L (6.3-8.2) g/dL Albumin 2.7 L (3.9-5) g/dL Assessment and Plan - Patient Problems (1) Pressure ulcer of sacral region, stage 4 Current Visit: Yes Status: Acute Plan to address problem: 1) Off loading 2) Intense nutritional support. Pt has a PEG. 3) Wound Care nurse consult
--- NOTE | 2021-01-24 14:18 | Progress Note ---
Assessment and Plan Assessment and plan: Assessment and plan (1) Sepsis Fever on admission, elevated leukocytosis. Blood culture and urine culture pending on Rocephin 2 g IV daily and Zithromax 500 mg IV daily. Lactic acid, WBC downtrending Repeat CBC BMP in the morning (2) Stage IV decubitus ulcer surgery evaluated, wound appears clean with granulation tissue. Recommends wound care Wound following. (3) ESRD needing dialysis Avoid nephrotoxic toxic drug. Nephrology following hemodialysis in the morning. We will monitor the blood pressure closely Monitor I's and O's Monitor electrolytes on BMP (4) type 2 diabetes with hyperglycemia ADA diet Hold home medication Sliding scale insulin Accu-Cheks [facility] Diabetic education (5) Anemia due to chronic kidney disease Anemia due to chronic kidney disease we will monitor the patient closely repeat CBC in the morning Follow recommendations of nephrology. (6) Secondary hyperparathyroidism Secondary hyperparathyroidism due to ESRD. Will follow nephro recommendation (7) Hepatitis C Positive hep C serology, patient does have mild transaminitis potentially explained by underlying hep C infection Outpatient follow-up (8) DVT prophylaxis Heparin 5000 units subcu every 8 hours for DVT prophylaxis. Pepcid 20 mg IV every 12 hours for GI prophylaxis. (9) Advance care planning Diet: PEG tube feeds, Nepro at 45 cc an hour with free water flush, n.p.o. at midnight Dispo: Difficulty getting in touch with Markrafael Franks. Surgery evaluated sacral ulcer and recommends wound care eval. Per CM, patient will return to [facility] upon d/c. Patient is afebrile and leukocytosis downtrending. Source of infection unclear, will continue to follow culture data. If no growth and patient appears clinically improved, will consider discharge back to facility History Interval history: 01/24/2021: Resting comfortably on encounter. No new events. Surgery evaluated sacral decubitus wound, appears clean with granulation tissue per assessment. Will follow wound care assessment 01/23/2021: Evaluated patient this morning. Patient is nonverbal. He is alert especially when his name is recalled. Discussed with care team plan for today. Hospitalist Physical - Physical exam Narrative exam: Physical Exam: GENERAL APPEARANCE: Thin ill-appearing, alert and cooperative, and appears to be in no acute distress. HEAD: normocephalic. EYES: PERRL, EOMI. Vision is grossly intact. EARS: No gross deformities NOSE: No nasal discharge. THROAT: No inflammation, swelling, exudate, or lesions. NECK: Neck supple, non-tender without lymphadenopathy, masses or thyromegaly. CARDIAC: Normal S1 and S2. No S3, S4 or murmurs. Rhythm is regular. There is no peripheral edema, cyanosis or pallor. Extremities are warm and well perfused. Capillary refill is less than 2 seconds. No carotid bruits. LUNGS: Clear to auscultation and percussion without rales, rhonchi, wheezing or diminished breath sounds. ABDOMEN: PEG tube in place positive bowel sounds. Soft, nondistended, nontender. No guarding or rebound. No masses. MUSKULOSKELETAL: Adequately aligned spine. ROM intact spine and extremities. No joint erythema or tenderness. BACK: Stage IV sacral decubitus ulcer EXTREMITIES: No significant deformity or joint abnormality. No edema. Peripheral pulses intact. No varicosities. NEUROLOGICAL: Unable to properly assess PSYCHIATRIC: The mental examination revealed the patient alert, nonverbal does not follow commands, oriented x0 - Constitutional Vitals: Temp Pulse Resp BP Pulse Ox 98.2 F 102 H 18 115/71 99 01/24/21 10:26 01/24/21 10:26 01/24/21 10:26 01/24/21 10:26 01/24/21 10:26 General appearance: Present: mild distress, cachectic Results - Labs CBC & Chem 7: 01/24/21 05:10 01/24/21 05:10 Labs: Laboratory Last Values WBC 10.8 K/mm3 (4.5-11.0) 01/24/21 05:10 RBC 3.25 M/mm3 (3.65-5.03) L 01/24/21 05:10 Hgb 7.7 gm/dl (11.8-15.2) L 01/24/21 05:10 Hct 23.6 % (35.5-45.6) L 01/24/21 05:10 MCV 73 fl (84-94) L 01/24/21 05:10 MCH 24 pg (28-32) L 01/24/21 05:10 MCHC 33 % (32-34) 01/24/21 05:10 RDW 19.8 % (13.2-15.2) H 01/24/21 05:10 Plt Count 399 K/mm3 (140-440) 01/24/21 05:10 Lymph % (Auto) 6.7 % (13.4-35.0) L 01/24/21 05:10 [place] % (Auto) 12.1 % (0.0-7.3) H 01/24/21 05:10 Eos % (Auto) 0.5 % (0.0-4.3) 01/24/21 05:10 Baso % (Auto) 0.4 % (0.0-1.8) 01/24/21 05:10 Lymph # (Auto) 0.7 K/mm3 (1.2-5.4) L 01/24/21 05:10 [place] # (Auto) 1.3 K/mm3 (0.0-0.8) H 01/24/21 05:10 Eos # (Auto) 0.1 K/mm3 (0.0-0.4) 01/24/21 05:10 Baso # (Auto) 0.0 K/mm3 (0.0-0.1) 01/24/21 05:10 Seg Neutrophils % 80.3 % (40.0-70.0) H 01/24/21 05:10 Seg Neutrophils # 8.7 K/mm3 (1.8-7.7) H 01/24/21 05:10 Sodium 138 mmol/L (137-145) 01/24/21 05:10 Potassium 2.7 mmol/L (3.6-5.0) L* D 01/24/21 05:10 Chloride 98.0 mmol/L (98-107) 01/24/21 05:10 Carbon Dioxide 30 mmol/L (22-30) 01/24/21 05:10 Anion Gap 13 mmol/L 01/24/21 05:10 BUN 26 mg/dL (9-20) H 01/24/21 05:10 Creatinine 2.2 mg/dL (0.8-1.3) H 01/24/21 05:10 Estimated GFR 37 ml/min 01/24/21 05:10 BUN/Creatinine Ratio 12 % 01/24/21 05:10 Glucose 272 mg/dL (75-100) H 01/24/21 05:10 POC Glucose 269 mg/dL (70-105) H 01/24/21 11:58 Lactic Acid 1.10 mmol/L (0.7-2.0) 01/23/21 10:29 Calcium 9.3 mg/dL (8.4-10.2) 01/24/21 05:10 Phosphorus 2.50 mg/dL (2.5-4.5) 01/22/21 18:00 Magnesium 2.40 mg/dL (1.7-2.3) H 01/22/21 18:00 Total Bilirubin 0.20 mg/dL (0.1-1.2) 01/24/21 05:10 AST 55 units/L (5-40) H 01/24/21 05:10 ALT 47 units/L (7-56) 01/24/21 05:10 Alkaline Phosphatase 397 units/L (35-129) H 01/24/21 05:10 NT-Pro-B Natriuret Pep 68184 pg/mL (0-900) H 01/22/21 18:00 Total Protein 6.2 g/dL (6.3-8.2) L 01/24/21 05:10 Albumin 2.7 g/dL (3.9-5) L 01/24/21 05:10 Albumin/Globulin Ratio 0.8 % 01/24/21 05:10 Hepatitis A IgM Ab Non-reactive (NonReactive) 01/23/21 14:47 Hep Bs Antigen Non-reactive (Negative) 01/23/21 14:47 Hep B Core IgM Ab Non-reactive (NonReactive) 01/23/21 14:47 Hepatitis C Antibody Reactive (NonReactive) A 01/23/21 14:47 Blood Type O POSITIVE 01/23/21 01:00 Antibody Screen Negative 01/23/21 01:00 Microbiology: Microbiology 01/22/21 18:00 Peripheral/Venous Blood Culture - Preliminary NO GROWTH AFTER 24 HOURS 01/22/21 18:00 Peripheral/Venous Blood Culture - Preliminary NO GROWTH AFTER 24 HOURS [place]/IV: Voiding Method Condom Catheter Active Medications - Current Medications Current Medications: Generic Name Dose Route Start Last Admin Trade Name Freq PRN Reason Stop Dose Admin Acetaminophen 650 mg 01/22/21 21:38 01/23/21 23:06 Acetaminophen 325 Mg Tab PO 650 mg Q6H PRN Administration Pain, Mild (1-3) Lipase/Protease/Amylase 1 each 01/23/21 11:34 01/23/21 23:43 Lipase 10,500/Protease 25,000/Amylase 43,750 (Units) Dr Sorto FEEDTUBE 1 each PRN PRN Administration For Clogged Feeding Tube Dextrose 50 ml 01/22/21 22:15 Dextrose 50% In Water (25gm) 50 Ml Syringe IV Q30MIN PRN Hypoglycemia Protocol Famotidine 20 mg 01/22/21 22:00 01/24/21 10:49 Famotidine 20 Mg/2 Ml Inj IV 20 mg DAILY GLORIA Administration Heparin Sodium (Porcine) 5,000 unit 01/22/21 22:00 01/24/21 10:49 Heparin 5,000 Unit/1 Ml Vial SUB-Q 5,000 unit Q12HR GLORIA Administration Hydromorphone HCl 0.25 mg 01/22/21 21:38 Hydromorphone 1 Mg/1 Ml Inj IV Q4H PRN Pain, Moderate (4-6) Hydromorphone HCl 0.5 mg 01/22/21 21:38 Hydromorphone 1 Mg/1 Ml Inj IV Q4H PRN Pain , Severe (7-10) Ceftriaxone Sodium 2 gm in 100 mls @ 200 mls/hr 01/22/21 22:00 01/23/21 23:07 Rocephin/Ns 2 Gm/100 Ml IV 200 mls/hr Q24H GLORIA Administration Protocol Azithromycin 500 mg in 250 mls @ 250 mls/hr 01/22/21 22:00 01/23/21 23:07 Zithromax/Ns IV 250 mls/hr Q24H GLORIA Administration Protocol Sodium Chloride 100 mls @ 999 mls/hr 01/22/21 22:38 Nacl 0.9% IV SAROJ PRN Hypotension Insulin Human Lispro 0 unit 01/23/21 07:30 01/24/21 12:10 Insulin Lispro 100 Unit/Ml SUB-Q 3 unit ACHS GLORIA Administration Protocol Simple Syrup 15 ml 01/23/21 11:34 Simple Syrup 15 Ml FEEDTUBE PRN PRN Hypoglycemia Simple Syrup 30 ml 01/23/21 11:34 Simple Syrup 15 Ml FEEDTUBE PRN PRN Hypoglycemia Sodium Bicarbonate 325 mg 01/23/21 11:34 01/23/21 23:43 Sodium Bicarbonate 325 Mg Tab FEEDTUBE 325 mg PRN PRN Administration For Clogged Feeding Tube Nutrition/Malnutrition Assess - Dietary Evaluation Nutrition/Malnutrition Findings: Nutrition Notes Start: 01/23/21 11:13 Freq: Status: Active Protocol: Document 01/23/21 11:13 CW (Rec: 01/23/21 11:22 CW [id number]) Nutrition Notes Need for Assessment generated from: MD Order Initial or Follow up Assessment Current Diagnosis CKD (stage V CKD),Diabetes Other Pertinent Diagnosis on HD, latic acidosis, Current Diet Renal diet Labs/Tests BG 276 Na 135 BUN 64 Cr 3.7 Pertinent Medications Humalog NS 1L Height 5 ft 8 in Weight 83.915 kg [place] Body Weight (kg) 70.00 BMI 28.1 Weight Status Appropriate Subjective/Other Information MD consult for diet education. Pt is a resident of a SNF and primarily nonverbal. Diet education appropriate. Admendment: MD consult for TF. Per RN , SNF reports a usage of PEG Burn Absent Trauma Absent GI Symptoms None Skin Integrity/Comment pressure ulcer present Minimum of two criteria No physical signs of malnutrition #1 Nutrition Diagnosis Increased nutrient needs ( specify in comment below) Comments: protein Etiology renal insufficiency wound healing As Evidenced by Signs and Symptoms pt on HD pt with large pressure ulcer Is patient on ventilator? No Is Patient Ambulatory and/or Out of Bed No REE-([facility]-confined to bed) [phone] Calculation Used for Recommendations Kcal/kg Additional Notes protein needs: >101g (>1.2 g/ kgBW) fluid needs: 1000 - 1500 ml/ kcal Nutrition Intervention Change Diet Order: Initiate TF regimen Nutrition Support: Nepro at 45 ml/hr with a free water flush of 100 ml q4h for hyponatremia. Once hyponatremia resolves, resume flush of 200 ml q4h Kcal 1,944 Protein (gm) 87 Fluid (mL) 785 Teaching Recipient Patient Response to Teaching Unable to comprehend Barriers to Learning Cognitive/Verbal,Environmental RD phone number provided No Patient aware of follow up options Yes Goal #1 Meet at least 75% of kcal and protein needs Goal #2 wound healing Anticipated Discharge Needs: Nepro at 45 ml/hr with a free water flush of 200 ml q4h Follow-Up By: 01/25/21 Additional Comments F/U TF start and tolerance
[2021-01-24] MEDS: cefTRIAXone/NS 2 GM/100 ML 2 GM/100 ML BAG IV SCH (22:54)
[2021-01-24] MEDS: AZITHROMYCIN/NS 500 MG/250 ML 500 MG/250 ML BAG IV SCH (22:55)
[2021-01-25 04:29] LABS: Basophils % (Auto) 0.3 % (0.0-1.8); Eosinophils % (Auto) 0.3 % (0.0-4.3); Hematocrit 23.8 % (35.5-45.6); Hemoglobin 7.8 gm/dl (11.8-15.2); Lymphocytes # (Auto) 1.2 K/mm3 (1.2-5.4); Lymphocytes % (Auto) 10.1 % (13.4-35.0); Mean Corpuscular HGB Conc 33 % (32-34); Mean Corpuscular Volume 72 fl (84-94); Monocytes # (Auto) 1.6 K/mm3 (0.0-0.8); Monocytes % (Auto) 13.5 % (0.0-7.3); Platelet Count 432 K/mm3 (140-440); Red Blood Count 3.29 M/mm3 (3.65-5.03); Red Cell Distribution Width 19.8 % (13.2-15.2)
[2021-01-25 05:05] LABS: Albumin 2.7 g/dL (3.9-5); Calcium 9.9 mg/dL (8.4-10.2)
[2021-01-25] MEDS: ACETAMINOPHEN 325 MG TAB PO PRN (06:12)
[2021-01-25] MEDS: INSULIN LISPRO 100 UNIT/ML SUB-Q SCH ×4 (09:45→22:15)
[2021-01-25] MEDS: HEPARIN 5,000 UNIT/1 ML VIAL SUB-Q SCH ×2 (09:46→22:14)
[2021-01-25] MEDS: FAMOTIDINE 20 MG/2 ML INJ IV SCH (09:46)
--- NOTE | 2021-01-25 15:19 | Progress Note ---
Assessment and Plan Assessment and plan: Assessment and plan (1) Sepsis (resolved) Fever on admission, elevated leukocytosis. Blood culture and urine culture no growth to date on Rocephin 2 g IV daily and Zithromax 500 mg IV daily. Lactic acid, WBC downtrending Repeat CBC BMP in the morning (2) Stage IV decubitus ulcer surgery evaluated, wound appears clean with granulation tissue. Recommends wound care We will follow up wound care assessment (3) ESRD needing dialysis Avoid nephrotoxic toxic drug. Nephrology following hemodialysis in the morning. We will monitor the blood pressure closely Monitor I's and O's Monitor electrolytes on BMP (4) type 2 diabetes with hyperglycemia ADA diet Hold home medication Sliding scale insulin Accu-Cheks [facility] Diabetic education (5) Anemia due to chronic kidney disease Anemia due to chronic kidney disease we will monitor the patient closely repeat CBC in the morning Follow recommendations of nephrology. (6) Secondary hyperparathyroidism Secondary hyperparathyroidism due to ESRD. Will follow nephro recommendation (7) Hepatitis C Positive hep C serology, patient does have mild transaminitis potentially explained by underlying hep C infection Outpatient follow-up (8) DVT prophylaxis Heparin 5000 units subcu every 8 hours for DVT prophylaxis. Pepcid 20 mg IV every 12 hours for GI prophylaxis. (9) Advance care planning Diet: PEG tube feeds, Nepro at 45 cc an hour with free water flush, n.p.o. at midnight Dispo: Difficulty getting in touch with Natalie Franks. Surgery evaluated sacral ulcer and recommends wound care eval. Per CM, patient will return to [facility] upon d/c. Patient is afebrile and leukocytosis downtrending. Source of infection unclear, will continue to follow culture data. If no growth and patient appears clinically improved, will consider discharge back to facility History Interval history: 01/25/2021: Resting comfortably on encounter. No events. Wound care to evaluate sacral decubitus ulcer today. Patient will likely go back to facility if no growth on culture data and based on wound care recommendations. 01/24/2021: Resting comfortably on encounter. No new events. Surgery evaluated sacral decubitus wound, appears clean with granulation tissue per assessment. Will follow wound care assessment 01/23/2021: Evaluated patient this morning. Patient is nonverbal. He is alert especially when his name is recalled. Discussed with care team plan for today. Hospitalist Physical - Physical exam Narrative exam: Physical Exam: GENERAL APPEARANCE: Thin ill-appearing, alert and cooperative, and appears to be in no acute distress. HEAD: normocephalic. EYES: PERRL, EOMI. Vision is grossly intact. EARS: No gross deformities NOSE: No nasal discharge. THROAT: No inflammation, swelling, exudate, or lesions. NECK: Neck supple, non-tender without lymphadenopathy, masses or thyromegaly. CARDIAC: Normal S1 and S2. No S3, S4 or murmurs. Rhythm is regular. There is no peripheral edema, cyanosis or pallor. Extremities are warm and well perfused. Capillary refill is less than 2 seconds. No carotid bruits. LUNGS: Clear to auscultation and percussion without rales, rhonchi, wheezing or diminished breath sounds. ABDOMEN: PEG tube in place positive bowel sounds. Soft, nondistended, nontender. No guarding or rebound. No masses. MUSKULOSKELETAL: Adequately aligned spine. ROM intact spine and extremities. No joint erythema or tenderness. BACK: Stage IV sacral decubitus ulcer EXTREMITIES: No significant deformity or joint abnormality. No edema. Peripheral pulses intact. No varicosities. NEUROLOGICAL: Unable to properly assess PSYCHIATRIC: The mental examination revealed the patient alert, nonverbal does not follow commands, oriented x0 - Constitutional Vitals: Temp Pulse Resp BP Pulse Ox 96.5 F L 105 H 19 125/80 100 01/25/21 11:57 01/25/21 11:57 01/25/21 11:57 01/25/21 11:57 01/25/21 11:57 General appearance: Present: mild distress, cachectic Results - Labs CBC & Chem 7: 01/25/21 03:54 01/25/21 03:54 Labs: Laboratory Last Values WBC 11.5 K/mm3 (4.5-11.0) H 01/25/21 03:54 RBC 3.29 M/mm3 (3.65-5.03) L 01/25/21 03:54 Hgb 7.8 gm/dl (11.8-15.2) L 01/25/21 03:54 Hct 23.8 % (35.5-45.6) L 01/25/21 03:54 MCV 72 fl (84-94) L 01/25/21 03:54 MCH 24 pg (28-32) L 01/25/21 03:54 MCHC 33 % (32-34) 01/25/21 03:54 RDW 19.8 % (13.2-15.2) H 01/25/21 03:54 Plt Count 432 K/mm3 (140-440) 01/25/21 03:54 Lymph % (Auto) 10.1 % (13.4-35.0) L 01/25/21 03:54 [place] % (Auto) 13.5 % (0.0-7.3) H 01/25/21 03:54 Eos % (Auto) 0.3 % (0.0-4.3) 01/25/21 03:54 Baso % (Auto) 0.3 % (0.0-1.8) 01/25/21 03:54 Lymph # (Auto) 1.2 K/mm3 (1.2-5.4) 01/25/21 03:54 [place] # (Auto) 1.6 K/mm3 (0.0-0.8) H 01/25/21 03:54 Eos # (Auto) 0.0 K/mm3 (0.0-0.4) 01/25/21 03:54 Baso # (Auto) 0.0 K/mm3 (0.0-0.1) 01/25/21 03:54 Seg Neutrophils % 75.8 % (40.0-70.0) H 01/25/21 03:54 Seg Neutrophils # 8.7 K/mm3 (1.8-7.7) H 01/25/21 03:54 Sodium 140 mmol/L (137-145) 01/25/21 03:54 Potassium 3.6 mmol/L (3.6-5.0) 01/25/21 03:54 Chloride 100.1 mmol/L (98-107) 01/25/21 03:54 Carbon Dioxide 26 mmol/L (22-30) 01/25/21 03:54 Anion Gap 18 mmol/L 01/25/21 03:54 BUN 40 mg/dL (9-20) H 01/25/21 03:54 Creatinine 3.3 mg/dL (0.8-1.3) H 01/25/21 03:54 Estimated GFR 23 ml/min 01/25/21 03:54 BUN/Creatinine Ratio 12 % 01/25/21 03:54 Glucose 189 mg/dL (75-100) H 01/25/21 03:54 POC Glucose 244 mg/dL (70-105) H 01/25/21 11:27 Lactic Acid 1.10 mmol/L (0.7-2.0) 01/23/21 10:29 Calcium 9.9 mg/dL (8.4-10.2) 01/25/21 03:54 Phosphorus 2.50 mg/dL (2.5-4.5) 01/22/21 18:00 Magnesium 2.40 mg/dL (1.7-2.3) H 01/22/21 18:00 Total Bilirubin 0.30 mg/dL (0.1-1.2) 01/25/21 03:54 AST 44 units/L (5-40) H 01/25/21 03:54 ALT 41 units/L (7-56) 01/25/21 03:54 Alkaline Phosphatase 421 units/L (35-129) H 01/25/21 03:54 NT-Pro-B Natriuret Pep 89964 pg/mL (0-900) H 01/22/21 18:00 Total Protein 6.4 g/dL (6.3-8.2) 01/25/21 03:54 Albumin 2.7 g/dL (3.9-5) L 01/25/21 03:54 Albumin/Globulin Ratio 0.7 % 01/25/21 03:54 Hepatitis A IgM Ab Non-reactive (NonReactive) 01/23/21 14:47 Hep Bs Antigen Non-reactive (Negative) 01/23/21 14:47 Hep B Core IgM Ab Non-reactive (NonReactive) 01/23/21 14:47 Hepatitis C Antibody Reactive (NonReactive) A 01/23/21 14:47 Blood Type O POSITIVE 01/23/21 01:00 Antibody Screen Negative 01/23/21 01:00 Microbiology: Microbiology 01/22/21 18:00 Peripheral/Venous Blood Culture - Preliminary NO GROWTH AFTER 48 HOURS 01/22/21 18:00 Peripheral/Venous Blood Culture - Preliminary NO GROWTH AFTER 48 HOURS [place]/IV: Voiding Method Condom Catheter Active Medications - Current Medications Current Medications: Generic Name Dose Route Start Last Admin Trade Name Freq PRN Reason Stop Dose Admin Acetaminophen 650 mg 01/22/21 21:38 01/25/21 06:12 Acetaminophen 325 Mg Tab PO 650 mg Q6H PRN Administration Pain, Mild (1-3) Lipase/Protease/Amylase 1 each 01/23/21 11:34 01/23/21 23:43 Lipase 10,500/Protease 25,000/Amylase 43,750 (Units) Dr Sorto FEEDTUBE 1 each PRN PRN Administration For Clogged Feeding Tube Dextrose 50 ml 01/22/21 22:15 Dextrose 50% In Water (25gm) 50 Ml Syringe IV Q30MIN PRN Hypoglycemia Protocol Famotidine 20 mg 01/22/21 22:00 01/25/21 09:46 Famotidine 20 Mg/2 Ml Inj IV 20 mg DAILY GLORIA Administration Heparin Sodium (Porcine) 5,000 unit 01/22/21 22:00 01/25/21 09:46 Heparin 5,000 Unit/1 Ml Vial SUB-Q 5,000 unit Q12HR GLORIA Administration Hydromorphone HCl 0.25 mg 01/22/21 21:38 Hydromorphone 1 Mg/1 Ml Inj IV Q4H PRN Pain, Moderate (4-6) Hydromorphone HCl 0.5 mg 01/22/21 21:38 Hydromorphone 1 Mg/1 Ml Inj IV Q4H PRN Pain , Severe (7-10) Ceftriaxone Sodium 2 gm in 100 mls @ 200 mls/hr 01/22/21 22:00 01/24/21 22:54 Rocephin/Ns 2 Gm/100 Ml IV 01/26/21 22:29 200 mls/hr Q24H GLORIA Administration Protocol Azithromycin 500 mg in 250 mls @ 250 mls/hr 01/22/21 22:00 01/24/21 22:55 Zithromax/Ns IV 01/26/21 22:59 250 mls/hr Q24H GLORIA Administration Protocol Sodium Chloride 100 mls @ 999 mls/hr 01/22/21 22:38 Nacl 0.9% IV SAROJ PRN Hypotension Insulin Human Lispro 0 unit 01/23/21 07:30 01/25/21 14:05 Insulin Lispro 100 Unit/Ml SUB-Q 2 unit ACHS GLORIA Administration Protocol Simple Syrup 15 ml 01/23/21 11:34 Simple Syrup 15 Ml FEEDTUBE PRN PRN Hypoglycemia Simple Syrup 30 ml 01/23/21 11:34 Simple Syrup 15 Ml FEEDTUBE PRN PRN Hypoglycemia Sodium Bicarbonate 325 mg 01/23/21 11:34 01/23/21 23:43 Sodium Bicarbonate 325 Mg Tab FEEDTUBE 325 mg PRN PRN Administration For Clogged Feeding Tube Nutrition/Malnutrition Assess - Dietary Evaluation Nutrition/Malnutrition Findings: Nutrition Notes Start: 01/23/21 11:13 Freq: Status: Active Protocol: Document 01/23/21 11:13 CW (Rec: 01/23/21 11:22 CW [id number]) Nutrition Notes Need for Assessment generated from: MD Order Initial or Follow up Assessment Current Diagnosis CKD (stage V CKD),Diabetes Other Pertinent Diagnosis on HD, latic acidosis, Current Diet Renal diet Labs/Tests BG 276 Na 135 BUN 64 Cr 3.7 Pertinent Medications Humalog NS 1L Height 5 ft 8 in Weight 83.915 kg [place] Body Weight (kg) 70.00 BMI 28.1 Weight Status Appropriate Subjective/Other Information MD consult for diet education. Pt is a resident of a SNF and primarily nonverbal. Diet education appropriate. Admendment: MD consult for TF. Per RN , SNF reports a usage of PEG Burn Absent Trauma Absent GI Symptoms None Skin Integrity/Comment pressure ulcer present Minimum of two criteria No physical signs of malnutrition #1 Nutrition Diagnosis Increased nutrient needs ( specify in comment below) Comments: protein Etiology renal insufficiency wound healing As Evidenced by Signs and Symptoms pt on HD pt with large pressure ulcer Is patient on ventilator? No Is Patient Ambulatory and/or Out of Bed No REE-([facility]-confined to bed) [phone] Calculation Used for Recommendations Kcal/kg Additional Notes protein needs: >101g (>1.2 g/ kgBW) fluid needs: 1000 - 1500 ml/ kcal Nutrition Intervention Change Diet Order: Initiate TF regimen Nutrition Support: Nepro at 45 ml/hr with a free water flush of 100 ml q4h for hyponatremia. Once hyponatremia resolves, resume flush of 200 ml q4h Kcal 1,944 Protein (gm) 87 Fluid (mL) 785 Teaching Recipient Patient Response to Teaching Unable to comprehend Barriers to Learning Cognitive/Verbal,Environmental RD phone number provided No Patient aware of follow up options Yes Goal #1 Meet at least 75% of kcal and protein needs Goal #2 wound healing Anticipated Discharge Needs: Nepro at 45 ml/hr with a free water flush of 200 ml q4h Follow-Up By: 01/25/21 Additional Comments F/U TF start and tolerance
[2021-01-25] MEDS ORDERED: LIPASE 10,500/PROTEASE 25,000/AMYLASE 43,750 (UNITS) DR CAP FEEDTUBE PRN (15:41)
[2021-01-25] MEDS ORDERED: SODIUM BICARBONATE 325 MG TAB FEEDTUBE PRN (15:41)
[2021-01-25] MEDS ORDERED: SIMPLE SYRUP 15 ML FEEDTUBE PRN ×2 (15:41)
--- NOTE | 2021-01-25 16:19 | Progress Note ---
Assessment and Plan # ESRD: HD 01/23 for toxin clearance, electrolyte and volume management; usually HD MWF, will plan to continue inpatient // - Assess daily for needs for additional session - daily labs - renally dose meds - avoid nephrotoxins - renal diet - emergency verbal consent obtained for HD as he is chronic HD patient with our team # Hypokalemia:3K bath for HD # Anemia: ESAs prn with HD # HTN: UF as tolerated, will need to be cautious due to labile bp # Secondary Hyperparathyroidism: continue home binders as needed # DM # Sepsis/Lactic Acidosis/Fevers: management per primary, blood cultures NGTD, suspect decubitus ulcer as source, note plans for debridement Subjective Date of service: 01/25/21 Principal diagnosis: Fever Interval history: Resting in bed. Nonverbal. Objective - Exam Narrative Exam: General: No acute distress HEENT: Oral mucosa moist Neck: Supple, no JVD Chest: Clear to auscultation bilaterally Heart: RRR, S1 and S2, no pericardial rub Abdomen: Soft, nontender, no renal bruit Extremity: No peripheral cyanosis, edema Neurological: Alert, awake, no asterixis Dermatology: No skin rash Psych: No agitation Musculoskeletal: No joint effusion Access site : No signs of inflammation - Vital Signs Vital signs: Vital Signs - 12hr 01/25/21 01/25/21 01/25/21 06:00 07:53 08:16 Temperature 98.1 F Pulse Rate 114 H 108 H Respiratory 19 Rate Blood Pressure Blood Pressure 117/81 [Left] O2 Sat by Pulse 100 100 Oximetry 01/25/21 11:57 Temperature 96.5 F L Pulse Rate 105 H Respiratory 19 Rate Blood Pressure 125/80 Blood Pressure [Left] O2 Sat by Pulse 100 Oximetry - Lab 01/25/21 03:54 01/25/21 03:54 Most recent lab results Calcium 9.9 mg/dL (8.4-10.2) 01/25/21 03:54 Phosphorus 2.50 mg/dL (2.5-4.5) 01/22/21 18:00 Magnesium 2.40 mg/dL (1.7-2.3) H 01/22/21 18:00 Medications & Allergies - Medications Allergies/Adverse Reactions: Allergies No Known Allergies Allergy (Verified 01/22/21 21:44) Active Medications: Generic Name Dose Route Start Last Admin Trade Name Freq PRN Reason Stop Dose Admin Acetaminophen 650 mg 01/22/21 21:38 01/25/21 06:12 Acetaminophen 325 Mg Tab PO 650 mg Q6H PRN Administration Pain, Mild (1-3) Lipase/Protease/Amylase 1 each 01/23/21 11:34 01/23/21 23:43 Lipase 10,500/Protease 25,000/Amylase 43,750 (Units) Dr Sorto FEEDTUBE 1 each PRN PRN Administration For Clogged Feeding Tube Dextrose 50 ml 01/22/21 22:15 Dextrose 50% In Water (25gm) 50 Ml Syringe IV Q30MIN PRN Hypoglycemia Protocol Famotidine 20 mg 01/22/21 22:00 01/25/21 09:46 Famotidine 20 Mg/2 Ml Inj IV 20 mg DAILY GLORIA Administration Heparin Sodium (Porcine) 5,000 unit 01/22/21 22:00 01/25/21 09:46 Heparin 5,000 Unit/1 Ml Vial SUB-Q 5,000 unit Q12HR GLORIA Administration Hydromorphone HCl 0.25 mg 01/22/21 21:38 Hydromorphone 1 Mg/1 Ml Inj IV Q4H PRN Pain, Moderate (4-6) Hydromorphone HCl 0.5 mg 01/22/21 21:38 Hydromorphone 1 Mg/1 Ml Inj IV Q4H PRN Pain , Severe (7-10) Ceftriaxone Sodium 2 gm in 100 mls @ 200 mls/hr 01/22/21 22:00 01/24/21 22:54 Rocephin/Ns 2 Gm/100 Ml IV 01/26/21 22:29 200 mls/hr Q24H GLORIA Administration Protocol Azithromycin 500 mg in 250 mls @ 250 mls/hr 01/22/21 22:00 01/24/21 22:55 Zithromax/Ns IV 01/26/21 22:59 250 mls/hr Q24H GLORIA Administration Protocol Sodium Chloride 100 mls @ 999 mls/hr 01/22/21 22:38 Nacl 0.9% IV SAROJ PRN Hypotension Insulin Human Lispro 0 unit 01/23/21 07:30 01/25/21 14:05 Insulin Lispro 100 Unit/Ml SUB-Q 2 unit ACHS GLORIA Administration Protocol Simple Syrup 15 ml 01/23/21 11:34 Simple Syrup 15 Ml FEEDTUBE PRN PRN Hypoglycemia Simple Syrup 30 ml 01/23/21 11:34 Simple Syrup 15 Ml FEEDTUBE PRN PRN Hypoglycemia Sodium Bicarbonate 325 mg 01/23/21 11:34 01/23/21 23:43 Sodium Bicarbonate 325 Mg Tab FEEDTUBE 325 mg PRN PRN Administration For Clogged Feeding Tube
[2021-01-25] MEDS: AZITHROMYCIN/NS 500 MG/250 ML 500 MG/250 ML BAG IV SCH (22:15)
[2021-01-25] MEDS: cefTRIAXone/NS 2 GM/100 ML 2 GM/100 ML BAG IV SCH (22:16)
[2021-01-26] MEDS: ACETAMINOPHEN 325 MG TAB PO PRN ×2 (03:24→21:32)
[2021-01-26 11:11] LABS: Hematocrit 24.1 % (35.5-45.6); Hemoglobin 7.8 gm/dl (11.8-15.2); Mean Corpuscular HGB Conc 32 % (32-34); Mean Corpuscular Volume 72 fl (84-94); Platelet Count 433 K/mm3 (140-440); Red Blood Count 3.33 M/mm3 (3.65-5.03); Red Cell Distribution Width 20.2 % (13.2-15.2)
--- NOTE | 2021-01-26 11:12 | Progress Note ---
Assessment and Plan # ESRD: HD 01/23 for toxin clearance, electrolyte and volume management; usually HD MWF, will plan to continue inpatient // - Assess daily for needs for additional session - daily labs - renally dose meds - avoid nephrotoxins - renal diet - emergency verbal consent obtained for HD as he is chronic HD patient with our team # Hypokalemia:3K bath for HD # Anemia: ESAs prn with HD # HTN: UF as tolerated, will need to be cautious due to labile bp # Secondary Hyperparathyroidism: continue home binders as needed # DM # Sepsis/Lactic Acidosis/Fevers: management per primary, blood cultures NGTD, suspect decubitus ulcer as source, note plans for debridement. Catheter site c/d/i. No drainage. Subjective Date of service: 01/26/21 Principal diagnosis: Fever Interval history: Resting in bed. Non-verbal. Objective - Exam Narrative Exam: General: No acute distress HEENT: Oral mucosa moist Neck: Supple, no JVD Chest: Clear to auscultation bilaterally Heart: RRR, S1 and S2, no pericardial rub Abdomen: Soft, nontender, no renal bruit Extremity: No peripheral cyanosis, edema Neurological: Alert, awake, no asterixis Dermatology: No skin rash Psych: No agitation Musculoskeletal: No joint effusion Access site : No signs of inflammation - Vital Signs Vital signs: Vital Signs - 12hr 01/26/21 01/26/21 01/26/21 03:03 06:00 07:58 Temperature 102.1 F H 97.4 F L Pulse Rate 123 H 123 H 95 H Respiratory 20 19 Rate Blood Pressure 115/69 127/78 O2 Sat by Pulse 97 100 Oximetry - Lab 01/25/21 03:54 01/25/21 03:54 Most recent lab results Calcium 9.9 mg/dL (8.4-10.2) 01/25/21 03:54 Phosphorus 2.50 mg/dL (2.5-4.5) 01/22/21 18:00 Magnesium 2.40 mg/dL (1.7-2.3) H 01/22/21 18:00 Medications & Allergies - Medications Allergies/Adverse Reactions: Allergies No Known Allergies Allergy (Verified 01/22/21 21:44) Active Medications: Generic Name Dose Route Start Last Admin Trade Name Freq PRN Reason Stop Dose Admin Acetaminophen 650 mg 01/22/21 21:38 01/26/21 03:24 Acetaminophen 325 Mg Tab PO 650 mg Q6H PRN Administration Pain, Mild (1-3) Lipase/Protease/Amylase 1 each 01/23/21 11:34 01/23/21 23:43 Lipase 10,500/Protease 25,000/Amylase 43,750 (Units) Dr Sorto FEEDTUBE 1 each PRN PRN Administration For Clogged Feeding Tube Dextrose 50 ml 01/22/21 22:15 Dextrose 50% In Water (25gm) 50 Ml Syringe IV Q30MIN PRN Hypoglycemia Protocol Famotidine 20 mg 01/26/21 12:00 Famotidine 20 Mg Tab PO DAILY GLORIA Heparin Sodium (Porcine) 5,000 unit 01/22/21 22:00 01/25/21 22:14 Heparin 5,000 Unit/1 Ml Vial SUB-Q 5,000 unit Q12HR GLORIA Administration Hydromorphone HCl 0.25 mg 01/22/21 21:38 Hydromorphone 1 Mg/1 Ml Inj IV Q4H PRN Pain, Moderate (4-6) Hydromorphone HCl 0.5 mg 01/22/21 21:38 Hydromorphone 1 Mg/1 Ml Inj IV Q4H PRN Pain , Severe (7-10) Ceftriaxone Sodium 2 gm in 100 mls @ 200 mls/hr 01/22/21 22:00 01/25/21 22:16 Rocephin/Ns 2 Gm/100 Ml IV 01/26/21 22:29 200 mls/hr Q24H GLORIA Administration Protocol Azithromycin 500 mg in 250 mls @ 250 mls/hr 01/22/21 22:00 01/25/21 22:15 Zithromax/Ns IV 01/26/21 22:59 250 mls/hr Q24H GLORIA Administration Protocol Sodium Chloride 100 mls @ 999 mls/hr 01/22/21 22:38 Nacl 0.9% IV SAROJ PRN Hypotension Insulin Human Lispro 0 unit 01/23/21 07:30 01/25/21 22:15 Insulin Lispro 100 Unit/Ml SUB-Q 2 unit ACHS GLORIA Administration Protocol Simple Syrup 15 ml 01/23/21 11:34 Simple Syrup 15 Ml FEEDTUBE PRN PRN Hypoglycemia Simple Syrup 30 ml 01/23/21 11:34 Simple Syrup 15 Ml FEEDTUBE PRN PRN Hypoglycemia Sodium Bicarbonate 325 mg 01/23/21 11:34 01/23/21 23:43 Sodium Bicarbonate 325 Mg Tab FEEDTUBE 325 mg PRN PRN Administration For Clogged Feeding Tube
[2021-01-26 11:26] LABS: Calcium 10.2 mg/dL (8.4-10.2)
[2021-01-26] MEDS: FAMOTIDINE 20 MG TAB PO SCH (14:02)
[2021-01-26] MEDS: HEPARIN 5,000 UNIT/1 ML VIAL SUB-Q SCH ×2 (14:03→21:33)
[2021-01-26] MEDS: INSULIN LISPRO 100 UNIT/ML SUB-Q SCH ×2 (14:04→14:05)
[2021-01-26] MEDS: FAMOTIDINE 20 MG/2 ML INJ IV SCH (14:06)
--- NOTE | 2021-01-26 14:54 | Progress Note ---
Assessment and Plan -- Sepsis (resolved) presented with Fever on admission, elevated leukocytosis. Suspected infected decubitus wound Blood culture and urine culture no growth to date on Rocephin 2 g IV daily and Zithromax 500 mg IV daily. Lactic acid, WBC downtrending -- Stage IV decubitus ulcer surgery evaluated, wound appears clean with granulation tissue. Recommends wound care We will follow up wound care assessment -- ESRD needing dialysis Avoid nephrotoxic toxic drug. Nephrology following , hemodialysis as scheduled Monitor I's and O's Monitor electrolytes on BMP -- type 2 diabetes with hyperglycemia ADA diet, Hold home medication Sliding scale insulin Accu-Cheks AC HS --Anemia due to chronic kidney disease monitor the patient closely repeat CBC in the morning Follow recommendations of nephrology. -- Secondary hyperparathyroidism Secondary hyperparathyroidism due to ESRD. Will follow nephro recommendation -- Hepatitis C Positive hep C serology, patient does have mild transaminitis potentially explained by underlying hep C infection Outpatient follow-up -- DVT prophylaxis Heparin 5000 units subcu every 8 hours for DVT prophylaxis. Pepcid 20 mg IV every 12 hours for GI prophylaxis. -- Advance care planning Diet: PEG tube feeds, Nepro at 45 cc an hour with free water flush, n.p.o. at midnight Dispo: Difficulty getting in touch with Natalie Franks. Surgery evaluated sacral ulcer and recommends wound care eval. Per CM, patient will return to [facility] upon d/c. Patient is afebrile and leukocytosis downtrending. Source of infection unclear, will continue to follow culture data. If no growth and patient appears clinically improved, will consider discharge back to facility. pending wound cx eval Daily clinical course: 01/26/21: cont iv abx, waiting on wound care eval. planned to d/c back to SNF if WBC cont to trend down 01/25/2021: Resting comfortably on encounter. No events. Wound care to evaluate sacral decubitus ulcer today. Patient will likely go back to facility if no growth on culture data and based on wound care recommendations. 01/24/2021: Resting comfortably on encounter. No new events. Surgery evaluated sacral decubitus wound, appears clean with granulation tissue per assessment. Will follow wound care assessment 01/23/2021: Evaluated patient this morning. Patient is nonverbal. He is alert especially when his name is recalled. Discussed with care team plan for today. Subjective Date of service: 01/26/21 Principal diagnosis: Fever Interval history: Patient seen and examined. Medical records and medication list reviewed. No acute event overnight noted by the RN. Patient is tolerating tube feeding diet. Discussed plan of care at bedside with patient's RN. Objective - Exam Narrative Exam: GENERAL: well-developed and well-nourished -[place] male lying on bed appeared to be in no discomfort. HEENT: Normocephalic. Atraumatic. No conjunctival congestion or icterus. Patient has moist mucous membranes. NECK: Supple. Trachea midline. CHEST/LUNGS: Clear to auscultated bilaterally, breathing nonlabored. No wheezes crackles or rhonchi. HEART/CARDIOVASCULAR: Regular in rate and rhythm. S1 and S2 positive. ABDOMEN: Abdomen is soft, nontender. Patient has normal bowel sounds. PEG tube in place SKIN: There is no rash. Warm and dry. NEURO: Contracted upper extremities, does not follow any command, oriented x0 MUSCULOSKELETAL: No joint effusion or tenderness. EXTRIMITY: No edema, no cyanosis or clubbing. PSYCH: Unable to assess - Constitutional Vitals: Vital Signs - 12hr 01/26/21 01/26/21 01/26/21 03:03 06:00 07:58 Temperature 102.1 F H 97.4 F L Pulse Rate 123 H 123 H 95 H Respiratory 20 19 Rate Blood Pressure 115/69 127/78 O2 Sat by Pulse 97 100 Oximetry 01/26/21 01/26/21 11:21 11:22 Temperature 97.3 F L Pulse Rate 99 H Respiratory 19 Rate Blood Pressure 125/80 O2 Sat by Pulse 99 99 Oximetry - Labs CBC & Chem 7: 01/26/21 10:48 01/26/21 10:48 Labs: Abnormal lab results 01/25/21 01/26/21 01/26/21 Range/Units 20:29 10:48 10:48 RBC 3.33 L (3.65-5.03) M/mm3 Hgb 7.8 L (11.8-15.2) gm/dl Hct 24.1 L (35.5-45.6) % MCV 72 L (84-94) fl MCH 24 L (28-32) pg RDW 20.2 H (13.2-15.2) % Potassium 3.4 L (3.6-5.0) mmol/L Carbon Dioxide 21 L (22-30) mmol/L BUN 61 H (9-20) mg/dL Creatinine 4.5 H (0.8-1.3) mg/dL Glucose 265 H (75-100) mg/dL POC Glucose 237 H (70-105) mg/dL 01/26/21 Range/Units 11:22 RBC (3.65-5.03) M/mm3 Hgb (11.8-15.2) gm/dl Hct (35.5-45.6) % MCV (84-94) fl MCH (28-32) pg RDW (13.2-15.2) % Potassium (3.6-5.0) mmol/L Carbon Dioxide (22-30) mmol/L BUN (9-20) mg/dL Creatinine (0.8-1.3) mg/dL Glucose (75-100) mg/dL POC Glucose 273 H (70-105) mg/dL
[2021-01-26] MEDS: HYDROmorphone 1 MG/1 ML INJ IV PRN ×2 (15:50→19:25)
[2021-01-26] MEDS: AZITHROMYCIN/NS 500 MG/250 ML 500 MG/250 ML BAG IV SCH (21:35)
[2021-01-26] MEDS: cefTRIAXone/NS 2 GM/100 ML 2 GM/100 ML BAG IV SCH (21:35)
[2021-01-27] MEDS: INSULIN LISPRO 100 UNIT/ML SUB-Q SCH ×8 (00:26→21:06)
[2021-01-27] MEDS: ACETAMINOPHEN 325 MG TAB PO PRN (06:14)
[2021-01-27] MEDS: HEPARIN 5,000 UNIT/1 ML VIAL SUB-Q SCH (11:01)
[2021-01-27] MEDS: FAMOTIDINE 20 MG TAB PO SCH (11:01)
--- NOTE | 2021-01-27 14:37 | Discharge Summary ---
Providers - Providers Date of Admission: 01/24/21 12:22 Date of discharge: 01/27/21 Attending physician: EDILSON REAL 01/22/21 19:27 Consult to Physician [CONS] Routine Comment: Dr. Hartley spoke with Dr. Vieira @ [phone] Consulting Provider: HOMER VIEIRA Physician Instructions: Reason For Exam: ESRD on HD 01/22/21 22:15 Consult to Dietitian/Nutrition [CONS] Routine Physician Instructions: Reason For Exam: Reason for Consult: Diet education 01/23/21 04:11 Consult to Wound/ET Nurse [CONS] Routine Reason For Exam: wound eval 01/23/21 11:35 Consult to Dietitian/Nutrition [CONS] Routine Physician Instructions: Assess nutrtn needs, initiate, modify, manage TF Reason For Exam: Reason for Consult: Write/Manage Tube Feeding Reason for Consult: Write/Manage Tube Feeding 01/23/21 13:47 Consult to Case Management [CONS] Routine Services Needed at Discharge: Other Notified:: [employer] Comment:: Locating family, Placement after hospitalization, discharge planning. Additional Physician Instructions: Sister: [phone] Have called x3, no response. 01/23/21 13:49 Consult to Physician [CONS] Routine Comment: Consulting Provider: NENA KEY Physician Instructions: Reason For Exam: stage 4 decubitus ulcer, eval for debridement 01/26/21 07:55 Consult to Wound/ET Nurse [CONS] Routine Reason For Exam: foam mattress please Primary care physician: [employer] Hospitalization Condition: Serious Pertinent studies: CXR: No infiltrates Hospital course: 65-year-old male with history of parathyroidism, diabetes, anemia, end-stage renal disease on hemodialysis was brought to the emergency room from [facility] after the patient was found to have a fever of 104 F. EMS says that he went to dialysis from [facility], but we do not have any paperwork from them. Per EMS, the patient is at his baseline mentation which includes being mostly nonverbal and nonambulatory. In the emergency room patient is found to have temperature of 103.3, stage IV sacral decubitus ulcer and patient lactic acid is 3.40. Patient placed on empiric antibiotics for possible infected decubitus ulcer, nephrology consulted for emergent hemodialysis, placed on antibiotic and admitted to the hospital for further evaluation management. Daily clinical course: 01/27/21: Patient clinically stable. no fever, white count normal. will discharge back to SNF in stable condition. Called family for update but no answer. Wound care not available to next Monday per case management. According to general surgery wound looks clean with granulation tissue. Patient will be discharged back to alf with current wound care orders. Patient will follow-up at wound care clinic in 1 week. 01/26/21: cont iv abx, waiting on wound care eval. planned to d/c back to SNF if WBC cont to trend down 01/25/2021: Resting comfortably on encounter. No events. Wound care to evaluate sacral decubitus ulcer today. Patient will likely go back to facility if no growth on culture data and based on wound care recommendations. 01/24/2021: Resting comfortably on encounter. No new events. Surgery evaluated sacral decubitus wound, appears clean with granulation tissue per assessment. Will follow wound care assessment 01/23/2021: Evaluated patient this morning. Patient is nonverbal. He is alert especially when his name is recalled. Discussed with care team plan for today. cont abx, follow cx. Disposition: [id number] SNF W [facility] CERT Final Discharge Diagnosis (Prints w/discharge instructions): -- Sepsis (resolved), likely from infected decubitus ulcer. -- Stage IV decubitus ulcer. -- ESRD needing dialysis. -- type 2 diabetes with hyperglycemia. --h/o CVA with hameparesis. --Anemia due to chronic kidney disease. -- Secondary hyperparathyroidism. -- Hepatitis C. --Severe protein calorie malnutrition, POA Time spent for discharge: 34 minutes Core Measure Documentation - Palliative Care Palliative Care/ Comfort Measures: Not Applicable - Core Measures Any of the following diagnoses?: history only Exam - Physical Exam Narrative exam: GENERAL: well-developed and malnourished -[place]ron[place] male lying on bed appeared to be in no discomfort. HEENT: Normocephalic. Atraumatic. No conjunctival congestion or icterus. Patient has moist mucous membranes. NECK: Supple. Trachea midline. CHEST/LUNGS: Clear to auscultated bilaterally, breathing nonlabored. No wheezes crackles or rhonchi. HEART/CARDIOVASCULAR: Regular in rate and rhythm. S1 and S2 positive. ABDOMEN: Abdomen is soft, nontender. Patient has normal bowel sounds. PEG tube in place SKIN: There is no rash. Warm and dry. NEURO: Contracted upper extremities, does not follow any command, oriented x0 MUSCULOSKELETAL: No joint effusion or tenderness. Generalized muscle wasting EXTRIMITY: No edema, no cyanosis or clubbing. PSYCH: Unable to assess - Constitutional Vitals: Temp Pulse Resp BP Pulse Ox 98.6 F 97 H 18 134/98 97 01/27/21 07:42 01/27/21 07:42 01/27/21 07:42 01/27/21 07:42 01/27/21 10:00 Plan Activity: fall precautions Diet: other (TF diet) Wound: keep clean and dry, change dressing, per wound nurse instructions Additional Instructions: Follow-up at wound care clinic in 1 week Follow up with: ROLANDA LOPEZ MD [Primary Care Provider] - 3-5 Days NENA KEY MD [Staff Physician] - 7 Days Prescriptions: Sulfamethoxazole/Trimethoprim [Bactrim DS TAB] 1 each PO BID #7 tablet
--- NOTE | 2021-01-27 17:51 | Progress Note ---
Assessment and Plan # ESRD: HD 01/23 for toxin clearance, electrolyte and volume management; usually HD MWF, will plan to continue inpatient // - Assess daily for needs for additional session - daily labs - renally dose meds - avoid nephrotoxins - renal diet - emergency verbal consent obtained for HD as he is chronic HD patient with our team # Hypokalemia:3K bath for HD # Anemia: ESAs prn with HD # HTN: UF as tolerated, will need to be cautious due to labile bp # Secondary Hyperparathyroidism: continue home binders as needed # DM # Sepsis/Lactic Acidosis/Fevers: management per primary, blood cultures NGTD, suspect decubitus ulcer as source, note plans for debridement. Catheter site c/d/i. No drainage. Subjective Date of service: 01/27/21 Principal diagnosis: Fever Interval history: In bed. Non-verbal. Objective - Exam Narrative Exam: General: No acute distress HEENT: Oral mucosa moist Neck: Supple, no JVD Chest: Clear to auscultation bilaterally Heart: RRR, S1 and S2, no pericardial rub Abdomen: Soft, nontender, no renal bruit Extremity: No peripheral cyanosis, edema Neurological: Alert, awake, no asterixis Dermatology: No skin rash Psych: No agitation Musculoskeletal: No joint effusion Access site : No signs of inflammation - Vital Signs Vital signs: Vital Signs - 12hr 01/27/21 01/27/21 01/27/21 06:12 06:14 07:42 Temperature 99.0 F 98.6 F Pulse Rate 79 97 H Respiratory 18 20 18 Rate Blood Pressure 111/68 134/98 O2 Sat by Pulse 100 100 Oximetry 01/27/21 01/27/21 01/27/21 10:00 11:33 15:59 Temperature 98.9 F 98.0 F Pulse Rate 103 H 108 H Respiratory 18 18 Rate Blood Pressure 109/79 116/70 O2 Sat by Pulse 97 99 99 Oximetry - Lab 01/26/21 10:48 01/26/21 10:48 Most recent lab results Calcium 10.2 mg/dL (8.4-10.2) 01/26/21 10:48 Phosphorus 2.50 mg/dL (2.5-4.5) 01/22/21 18:00 Magnesium 2.40 mg/dL (1.7-2.3) H 01/22/21 18:00 Medications & Allergies - Medications Allergies/Adverse Reactions: Allergies No Known Allergies Allergy (Verified 01/22/21 21:44) Home Medications: Home Medications Medication Instructions Recorded Confirmed Last Taken Type Lispro Insulin [HumaLOG] 0 unit SUB-Q Q6HR units 01/27/21 Unknown Rx Sulfamethoxazole/Trimethoprim 1 each PO BID #7 tablet 01/27/21 Unknown Rx [Bactrim DS TAB] Active Medications: Generic Name Dose Route Start Last Admin Trade Name Freq PRN Reason Stop Dose Admin Acetaminophen 650 mg 01/22/21 21:38 01/27/21 06:14 Acetaminophen 325 Mg Tab PO 650 mg Q6H PRN Administration Pain, Mild (1-3) Lipase/Protease/Amylase 1 each 01/23/21 11:34 01/23/21 23:43 Lipase 10,500/Protease 25,000/Amylase 43,750 (Units) Dr Sorto FEEDTUBE 1 each PRN PRN Administration For Clogged Feeding Tube Dextrose 50 ml 01/22/21 22:15 Dextrose 50% In Water (25gm) 50 Ml Syringe IV Q30MIN PRN Hypoglycemia Protocol Famotidine 20 mg 01/26/21 12:00 01/27/21 11:01 Famotidine 20 Mg Tab PO 20 mg DAILY GLORIA Administration Heparin Sodium (Porcine) 5,000 unit 01/22/21 22:00 01/27/21 11:01 Heparin 5,000 Unit/1 Ml Vial SUB-Q 5,000 unit Q12HR GLORIA Administration Hydromorphone HCl 0.25 mg 01/22/21 21:38 01/26/21 19:25 Hydromorphone 1 Mg/1 Ml Inj IV 0.25 mg Q4H PRN Administration Pain, Moderate (4-6) Hydromorphone HCl 0.5 mg 01/22/21 21:38 Hydromorphone 1 Mg/1 Ml Inj IV Q4H PRN Pain , Severe (7-10) Sodium Chloride 100 mls @ 999 mls/hr 01/22/21 22:38 Nacl 0.9% IV SAROJ PRN Hypotension Insulin Human Lispro 0 unit 01/23/21 07:30 01/27/21 12:59 Insulin Lispro 100 Unit/Ml SUB-Q Not Given A[facility]S [facility] Protocol Insulin Human Lispro 0 unit 01/27/21 12:00 01/27/21 12:58 Insulin Lispro 100 Unit/Ml SUB-Q 3 unit Q6HR GLORIA Administration Protocol Simple Syrup 15 ml 01/23/21 11:34 Simple Syrup 15 Ml FEEDTUBE PRN PRN Hypoglycemia Simple Syrup 30 ml 01/23/21 11:34 Simple Syrup 15 Ml FEEDTUBE PRN PRN Hypoglycemia Sodium Bicarbonate 325 mg 01/23/21 11:34 01/23/21 23:43 Sodium Bicarbonate 325 Mg Tab FEEDTUBE 325 mg PRN PRN Administration For Clogged Feeding Tube
[2021-01-27 21:04] VITALS: BP 127/76
== END 2021-01-27 20:00 | DRG 871 ==
LOC: ED 17:19 → 4A 21:38 → OBSVTOIN 01-24 12:22
PROVIDERS: ADMIT Hospitalist; ATTEND Internal Medicine
PROC: 5A1D70Z Performance of Urinary Filtration, Intermittent, Less than 6 Hours Per Day (ICD-10-PCS; principal; 2021-01-23)
PROC: 5A1D70Z Performance of Urinary Filtration, Intermittent, Less than 6 Hours Per Day (ICD-10-PCS; 2021-01-23)
DX: A41.9 Sepsis, unspecified organism (principal); N18.6 End stage renal disease; L89.94 Pressure ulcer of unspecified site, stage 4; E43 Unspecified severe protein-calorie malnutrition; I12.0 Hypertensive chronic kidney disease with stage 5 chronic kidney disease or end stage renal disease; E11.22 Type 2 diabetes mellitus with diabetic chronic kidney disease; E87.6 Hypokalemia; E87.2 Acidosis; D63.1 Anemia in chronic kidney disease; N25.81 Secondary hyperparathyroidism of renal origin; D72.829 Elevated white blood cell count, unspecified; Z99.2 Dependence on renal dialysis; I69.359 Hemiplegia and hemiparesis following cerebral infarction affecting unspecified side; Z79.899 Other long term (current) drug therapy; Z79.891 Long term (current) use of opiate analgesic; Z79.01 Long term (current) use of anticoagulants
CPT/HCPCS: 36415; 71045; 71260; 74177; 78580; 80048; 80053; 80061; 80074; 80202; 82140; 82728; 82805; 82962; 83615; 83735; 83880; 84100; 84132; 84145; 84484; 85007; 85014; 85018; 85025; 85027; 85379; 86140; 86850; 86900; 86901; 86920; 87040; 87076; 87116; 87186; 93005; 93306; 94640; 96365; 96375; G0378; A6260; A9540; J0456; J0692; J0696; J0885; J1170; J1644; J1815; J3370; J3480; J7040; J7042; J7050; P9016; Q9967; U0003

== ENCOUNTER 2021-01-29 05:45 | Inpatient (IN) | payer MEDICAID ==
[2021-01-29] MEDS ORDERED: SODIUM CHLORIDE 0.9% 1000 ML 1,000 ML IV ONE (07:28)
[2021-01-29] MEDS ORDERED: ACETAMINOPHEN 325 MG/10.15 ML ORAL LIQD UNIT DOSE FEEDTUBE ONE (07:29)
--- NOTE | 2021-01-29 07:31 | Emergency Department Report ---
HPI - General Chief Complaint: Dyspnea/Respdistress Time Seen by Provider: 01/29/21 07:12 - HPI HPI: Room 23 The patient is a 65-year-old male present with a chief complaint of fever and respiratory distress. The patient was reportedly sent from [facility] for respiratory distress. 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 I attempted to contact the senior care at [phone] for collateral information however nursing is unavailable ED Past Medical Hx - Past Medical History Previous Medical History?: Yes Hx Hypertension: Yes Hx CVA: Yes Hx Congestive Heart Failure: Yes Hx Diabetes: Yes Hx Renal Disease: Yes Additional medical history: neuropathy, Hep C, sleep apnea - Surgical History Past Surgical History?: Yes Additional Surgical History: G-tube plcement - Family History Family history: no significant - Social History Smoking Status: Unknown if ever smoked Substance Use Type: None - Medications Home Medications: Home Medications Medication Instructions Recorded Confirmed Last Taken Type Lispro Insulin [HumaLOG] 0 unit SUB-Q Q6HR units 01/27/21 Unknown Rx Sulfamethoxazole/Trimethoprim 1 each PO BID #7 tablet 01/27/21 Unknown Rx [Bactrim DS TAB] ED Review of Systems ROS: Stated complaint: MARIANGEL,FEVER Other details as noted in HPI Comment: Unobtainable due to pts medical conditions Physical Exam - Physical Exam Vital Signs: Vital Signs 01/29/21 01/29/21 01/29/21 06:07 06:16 06:22 Temperature 101.5 F H Pulse Rate 126 H 125 H 126 H Respiratory 32 H 34 H Rate Blood Pressure 117/66 117/66 O2 Sat by Pulse 100 98 Oximetry 01/29/21 01/29/21 01/29/21 06:30 06:40 06:46 Temperature Pulse Rate 122 H 124 H Respiratory 31 H 32 H Rate Blood Pressure 118/65 125/70 O2 Sat by Pulse 100 97 100 Oximetry Physical Exam: GENERAL: The patient is well-developed well-nourished male lying on stretcher nonverbal. [] HEENT: Normocephalic. Atraumatic. NECK: Supple. No meningitic signs are noted. There is no adenopathy noted. CHEST/LUNGS: Clear to auscultation. There is no respiratory distress noted. HEART/CARDIOVASCULAR: Regular. There is tachycardia. There is no gallop rub or murmur. ABDOMEN: Abdomen is soft, nontender. Patient has normal bowel sounds. There is no abdominal distention. SKIN: There is no rash. There is no edema. There is no diaphoresis. NEURO: The patient is grossly obtunded and nonverbal. Patient does not respond to verbal or tactile stimuli MUSCULOSKELETAL: There is no evidence of acute injury. ED Course Vital Signs 01/29/21 01/29/21 01/29/21 06:07 06:16 06:22 Temperature 101.5 F H Pulse Rate 126 H 125 H 126 H Respiratory 32 H 34 H Rate Blood Pressure 117/66 117/66 O2 Sat by Pulse 100 98 Oximetry 01/29/21 01/29/21 01/29/21 06:30 06:40 06:46 Temperature Pulse Rate 122 H 124 H Respiratory 31 H 32 H Rate Blood Pressure 118/65 125/70 O2 Sat by Pulse 100 97 100 Oximetry ED Medical Decision Making - Lab Data Result diagrams: 01/29/21 07:18 01/29/21 07:18 Laboratory Tests 01/29/21 01/29/21 01/29/21 07:18 07:18 07:18 WBC 13.6 H RBC 3.49 L Hgb 8.0 L Hct 25.2 L MCV 72 L MCH 23 L MCHC 32 RDW 19.8 H Plt Count 452 H Lymph % (Auto) 7.1 L [place] % (Auto) 8.7 H Eos % (Auto) 0.1 Baso % (Auto) 0.4 Lymph # (Auto) 1.0 L [place] # (Auto) 1.2 H Eos # (Auto) 0.0 Baso # (Auto) 0.1 Seg Neutrophils % 83.7 H Seg Neutrophils # 11.4 H D-Dimer VBG pH Sodium 141 Potassium 3.9 Chloride 97.8 L Carbon Dioxide 24 Anion Gap 23 BUN 75 H Creatinine 4.6 H Estimated GFR 16 BUN/Creatinine Ratio 16 Glucose 279 H Lactic Acid 3.30 H* Calcium 10.8 H Ferritin Total Bilirubin 0.20 AST 37 ALT 29 Alkaline Phosphatase 413 H Lactate Dehydrogenase Troponin T 0.540 H* C-Reactive Protein Total Protein 7.0 Albumin 2.8 L Albumin/Globulin Ratio 0.7 Triglycerides 346 H Cholesterol 107 LDL Cholesterol Direct 20 L HDL Cholesterol 22 L Cholesterol/HDL Ratio 4.86 Procalcitonin 0701/29/21 01/29/21 07:18 07:33 07:33 WBC RBC Hgb Hct MCV MCH MCHC RDW Plt Count Lymph % (Auto) [place] % (Auto) Eos % (Auto) Baso % (Auto) Lymph # (Auto) [place] # (Auto) Eos # (Auto) Baso # (Auto) Seg Neutrophils % Seg Neutrophils # D-Dimer 2432.53 H VBG pH 7.452 H Sodium Potassium Chloride Carbon Dioxide Anion Gap BUN Creatinine Estimated GFR BUN/Creatinine Ratio Glucose Lactic Acid Calcium Ferritin Total Bilirubin AST ALT Alkaline Phosphatase Lactate Dehydrogenase Troponin T C-Reactive Protein Total Protein Albumin Albumin/Globulin Ratio Triglycerides Cholesterol LDL Cholesterol Direct HDL Cholesterol Cholesterol/HDL Ratio Procalcitonin 1.95 01/29/21 01/29/21 07:33 07:33 WBC RBC Hgb Hct MCV MCH MCHC RDW Plt Count Lymph % (Auto) [place] % (Auto) Eos % (Auto) Baso % (Auto) Lymph # (Auto) [place] # (Auto) Eos # (Auto) Baso # (Auto) Seg Neutrophils % Seg Neutrophils # D-Dimer VBG pH Sodium Potassium Chloride Carbon Dioxide Anion Gap BUN Creatinine Estimated GFR BUN/Creatinine Ratio Glucose Lactic Acid Calcium Ferritin 735.6 H Total Bilirubin AST ALT Alkaline Phosphatase Lactate Dehydrogenase 244 H Troponin T C-Reactive Protein 11.10 H Total Protein Albumin Albumin/Globulin Ratio Triglycerides Cholesterol LDL Cholesterol Direct HDL Cholesterol Cholesterol/HDL Ratio Procalcitonin - EKG Data -: EKG Interpreted by Me EKG shows normal: sinus rhythm Rate: tachycardia (109 bpm) - EKG Data When compared to previous EKG there are: previous EKG unavailable Interpretation: other (No ischemic changes seen) - Radiology Data Radiology results: report reviewed (Chest x-ray), image reviewed (Chest x-ray) interpreted by me: Chest x-ray-no definite focal infiltrates, no pneumothorax. [facility] [address] [place] [address] XRay Report Signed Patient: CHRIS VILLALBA MR#: [id number] : 1955 Acct:[id number] Age/Sex: 65 / M ADM Date: 01/29/21 Loc: ED Attending Dr: Ordering Physician: NEW HERNADEZ MD Date of Service: 01/29/21 Procedure(s): XR chest 1V ap Accession Number(s): [id number] cc: NEW HERNADEZ MD Fluoro Time In Minutes: CHEST 1 VIEW 01/29/2021 7:44 AM INDICATION / CLINICAL INFORMATION: Shortness of breath. COMPARISON: One view of the chest from 01/22/2021 FINDINGS: SUPPORT DEVICES: Unchanged right internal jugular vein PermCath. HEART / MEDIASTINUM: No significant abnormality. LUNGS / PLEURA: No significant pulmonary abnormality. No significant pleural effusion. No pneumothorax. ADDITIONAL FINDINGS: No significant additional findings. IMPRESSION: 1. No acute abnormality of the chest. No significant interval changes. Signer Name: Keith Oliveira MD Signed: 01/29/2021 8:15 AM Workstation Name: [id number] Transcribed By: [place] Dictated By: Keith Oliveira MD Electronically Authenticated By: Keith Oliveira MD Signed Date/Time: 01/29/21814 DD/ 4 TD/TT: Print Cancel - Differential Diagnosis Sepsis, COVID-19, urosepsis, pneumonia, bronchitis, DKA Critical care attestation.: If time is entered above; I have spent that time in minutes in the direct care of this critically ill patient, excluding procedure time. ED Disposition Clinical Impression: SIRS (systemic inflammatory response syndrome), Lactic acidosis, Fever, Altered mental status Disposition: OP ADMIT IP TO THIS HOSP Is pt being admited?: Yes Does the pt Need Aspirin: No Condition: Fair Referrals: PRIMARY CARE, [Primary Care Provider] - 3-5 Days Time of Disposition: 10:10 (Hospitalist paged (Dr Rosas))
[2021-01-29 07:42] LABS: Basophils # (Auto) 0.1 K/mm3 (0.0-0.1); Basophils % (Auto) 0.4 % (0.0-1.8); Eosinophils % (Auto) 0.1 % (0.0-4.3); Hematocrit 25.2 % (35.5-45.6); Lymphocytes % (Auto) 7.1 % (13.4-35.0); Mean Corpuscular HGB Conc 32 % (32-34); Mean Corpuscular Volume 72 fl (84-94); Monocytes # (Auto) 1.2 K/mm3 (0.0-0.8); Monocytes % (Auto) 8.7 % (0.0-7.3); Platelet Count 452 K/mm3 (140-440); Red Blood Count 3.49 M/mm3 (3.65-5.03); Red Cell Distribution Width 19.8 % (13.2-15.2)
[2021-01-29 07:57] LABS: C-Reactive Protein 11.1 mg/dL (0.00-1.30)
[2021-01-29 07:59] LABS: Albumin 2.8 g/dL (3.9-5); Calcium 10.8 mg/dL (8.4-10.2)
--- NOTE | 2021-01-29 08:19 | XRay Report ---
CHEST 1 VIEW 01/29/2021 7:44 AM INDICATION / CLINICAL INFORMATION: Shortness of breath. COMPARISON: One view of the chest from 01/22/2021 FINDINGS: SUPPORT DEVICES: Unchanged right internal jugular vein PermCath. HEART / MEDIASTINUM: No significant abnormality. LUNGS / PLEURA: No significant pulmonary abnormality. No significant pleural effusion. No pneumothora x. ADDITIONAL FINDINGS: No significant additional findings. IMPRESSION: 1. No acute abnormality of the chest. No significant interval changes. Signer Name: Keith Oliveira MD Signed: 01/29/2021 8:15 AM Workstation Name: [id number]
[2021-01-29 08:33] LABS: Chol/HDL Ratio 4.86 %
[2021-01-29] MEDS ORDERED: AZITHROMYCIN/NS 500 MG/250 ML 500 MG/250 ML BAG IV ONE (08:40)
[2021-01-29] MEDS ORDERED: cefTRIAXone/NS 1 GM/50 ML 1 GM/50 ML BAG IV ONE (08:40)
--- NOTE | 2021-01-29 10:37 | History and Physical Report ---
History of Present Illness Date of examination: 01/29/21 Date of admission: 01/29/21 Chief complaint: fever, SOB History of present illness: The patient is a 65-year-old male who is a resident of [facility] with a history of CVA quadriparesis dysphagia status post G-tube placement , end-stage renal disease on hemodialysis hypertension, stage IV sacral decubitus ulcer recently discharged from the hospital after being treated for possible infected decubitus ulcer presents today from group home with a chief complaint of fever and respiratory distress. The patient was reportedly sent from [facility] for respiratory distress. The patient unable to provide any history due to underlying aphasia. Patient is bedbound and total care at his baseline. In the ER patient noted to be febrile, with elevated white count, elevated lactic acid and elevated troponin. Patient placed on empiric antibiotics, blood cultures obtained admitted to the hospitalist service for further evaluation and management. Review of systems: Unobtainable Past History Past Medical History: diabetes, ESRD, hypertension, stroke Past Surgical History: Other (Status post G-tube placement) Social history: other (Patient lives in a group home, further details unknown) Family history: other (Unknown) Medications and Allergies Allergies Allergy/AdvReac Type Severity Reaction Status Date / Time No Known Allergies Allergy Verified 01/22/21 21:44 Home Medications Medication Instructions Recorded Confirmed Last Taken Type Lispro Insulin [HumaLOG] 0 unit SUB-Q Q6HR units 01/27/21 01/29/21 Unknown Rx Sulfamethoxazole/Trimethoprim 1 each PO BID #7 tablet 01/27/21 01/29/21 Unknown Rx [Bactrim DS TAB] Exam - Physical Exam Narrative exam: GENERAL: well-developed and malnourished -[place] male lying on bed appeared to be in no discomfort. HEENT: Normocephalic. Atraumatic. No conjunctival congestion or icterus. Patient has moist mucous membranes. NECK: Supple. Trachea midline. CHEST/LUNGS: Clear to auscultated bilaterally, breathing nonlabored. No wheezes crackles or rhonchi. HEART/CARDIOVASCULAR: Regular in rate and rhythm. S1 and S2 positive. ABDOMEN: Abdomen is soft, nontender. Patient has normal bowel sounds. PEG tube in place SKIN: There is no rash. Warm and dry. NEURO: Contracted upper extremities, does not follow any command, oriented x0 MUSCULOSKELETAL: No joint effusion or tenderness. Generalized muscle wasting EXTRIMITY: No edema, no cyanosis or clubbing. PSYCH: Unable to assess - Constitutional Vitals: Temp Pulse Resp BP Pulse Ox 101.5 F H 124 H 32 H 125/70 100 01/29/21 06:22 01/29/21 06:46 01/29/21 06:46 01/29/21 06:46 01/29/21 06:46 HEART Score - HEART Score Troponin: WBC 13.6 K/mm3 (4.5-11.0) H 01/29/21 07:18 RBC 3.49 M/mm3 (3.65-5.03) L 01/29/21 07:18 Hgb 8.0 gm/dl (11.8-15.2) L 01/29/21 07:18 Hct 25.2 % (35.5-45.6) L 01/29/21 07:18 MCV 72 fl (84-94) L 01/29/21 07:18 MCH 23 pg (28-32) L 01/29/21 07:18 MCHC 32 % (32-34) 01/29/21 07:18 RDW 19.8 % (13.2-15.2) H 01/29/21 07:18 Plt Count 452 K/mm3 (140-440) H 01/29/21 07:18 Lymph % (Auto) 7.1 % (13.4-35.0) L 01/29/21 07:18 [place] % (Auto) 8.7 % (0.0-7.3) H 01/29/21 07:18 Eos % (Auto) 0.1 % (0.0-4.3) 01/29/21 07:18 Baso % (Auto) 0.4 % (0.0-1.8) 01/29/21 07:18 Lymph # (Auto) 1.0 K/mm3 (1.2-5.4) L 01/29/21 07:18 [place] # (Auto) 1.2 K/mm3 (0.0-0.8) H 01/29/21 07:18 Eos # (Auto) 0.0 K/mm3 (0.0-0.4) 01/29/21 07:18 Baso # (Auto) 0.1 K/mm3 (0.0-0.1) 01/29/21 07:18 Seg Neutrophils % 83.7 % (40.0-70.0) H 01/29/21 07:18 Seg Neutrophils # 11.4 K/mm3 (1.8-7.7) H 01/29/21 07:18 D-Dimer 2432.53 ng/mlDDU (0-234) H 01/29/21 07:33 VBG pH 7.452 (7.320-7.420) H 01/29/21 07:18 Sodium 141 mmol/L (137-145) 01/29/21 07:18 Potassium 3.9 mmol/L (3.6-5.0) 01/29/21 07:18 Chloride 97.8 mmol/L (98-107) L 01/29/21 07:18 Carbon Dioxide 24 mmol/L (22-30) 01/29/21 07:18 Anion Gap 23 mmol/L 01/29/21 07:18 BUN 75 mg/dL (9-20) H 01/29/21 07:18 Creatinine 4.6 mg/dL (0.8-1.3) H 01/29/21 07:18 Estimated GFR 16 ml/min 01/29/21 07:18 BUN/Creatinine Ratio 16 % 01/29/21 07:18 Glucose 279 mg/dL (75-100) H 01/29/21 07:18 Lactic Acid 3.30 mmol/L (0.7-2.0) H* 01/29/21 09:23 Calcium 10.8 mg/dL (8.4-10.2) H 01/29/21 07:18 Ferritin 735.6 ng/mL (30.0-300.0) H 01/29/21 07:33 Total Bilirubin 0.20 mg/dL (0.1-1.2) 01/29/21 07:18 AST 37 units/L (5-40) 01/29/21 07:18 ALT 29 units/L (7-56) 01/29/21 07:18 Alkaline Phosphatase 413 units/L (35-129) H 01/29/21 07:18 Lactate Dehydrogenase 244 units/L (91-180) H 01/29/21 07:33 Troponin T 0.540 ng/mL (0.00-0.029) H* 01/29/21 07:18 C-Reactive Protein 11.10 mg/dL (0.00-1.30) H 01/29/21 07:33 Total Protein 7.0 g/dL (6.3-8.2) 01/29/21 07:18 Albumin 2.8 g/dL (3.9-5) L 01/29/21 07:18 Albumin/Globulin Ratio 0.7 % 01/29/21 07:18 Triglycerides 346 mg/dL (2-149) H 01/29/21 07:18 Cholesterol 107 mg/dL (50-199) 01/29/21 07:18 LDL Cholesterol Direct 20 mg/dL (50-130) L 01/29/21 07:18 HDL Cholesterol 22 mg/dL (40-59) L 01/29/21 07:18 Cholesterol/HDL Ratio 4.86 % 01/29/21 07:18 Procalcitonin 1.95 ng/mL (<0.15) 01/29/21 07:33 Results - Labs CBC & Chem 7: 01/30/21 07:21 01/30/21 07:21 Labs: Abnormal lab results 01/29/21 01/29/21 01/29/21 Range/Units 07:18 07:18 07:18 WBC 13.6 H (4.5-11.0) K/mm3 RBC 3.49 L (3.65-5.03) M/mm3 Hgb 8.0 L (11.8-15.2) gm/dl Hct 25.2 L (35.5-45.6) % MCV 72 L (84-94) fl MCH 23 L (28-32) pg RDW 19.8 H (13.2-15.2) % Plt Count 452 H (140-440) K/mm3 Lymph % (Auto) 7.1 L (13.4-35.0) % [place] % (Auto) 8.7 H (0.0-7.3) % Lymph # (Auto) 1.0 L (1.2-5.4) K/mm3 [place] # (Auto) 1.2 H (0.0-0.8) K/mm3 Seg Neutrophils % 83.7 H (40.0-70.0) % Seg Neutrophils # 11.4 H (1.8-7.7) K/mm3 D-Dimer (0-234) ng/mlDDU VBG pH (7.320-7.420) Chloride 97.8 L (98-107) mmol/L BUN 75 H (9-20) mg/dL Creatinine 4.6 H (0.8-1.3) mg/dL Glucose 279 H (75-100) mg/dL Lactic Acid 3.30 H* (0.7-2.0) mmol/L Calcium 10.8 H (8.4-10.2) mg/dL Ferritin (30.0-300.0) ng/mL Alkaline Phosphatase 413 H (35-129) units/L Lactate Dehydrogenase (91-180) units/L Troponin T 0.540 H* (0.00-0.029) ng/mL C-Reactive Protein (0.00-1.30) mg/dL Albumin 2.8 L (3.9-5) g/dL Triglycerides 346 H (2-149) mg/dL LDL Cholesterol Direct 20 L (50-130) mg/dL HDL Cholesterol 22 L (40-59) mg/dL 01/29/21 01/29/21 01/29/21 Range/Units 07:18 07:33 07:33 WBC (4.5-11.0) K/mm3 RBC (3.65-5.03) M/mm3 Hgb (11.8-15.2) gm/dl Hct (35.5-45.6) % MCV (84-94) fl MCH (28-32) pg RDW (13.2-15.2) % Plt Count (140-440) K/mm3 Lymph % (Auto) (13.4-35.0) % [place] % (Auto) (0.0-7.3) % Lymph # (Auto) (1.2-5.4) K/mm3 [place] # (Auto) (0.0-0.8) K/mm3 Seg Neutrophils % (40.0-70.0) % Seg Neutrophils # (1.8-7.7) K/mm3 D-Dimer 2432.53 H (0-234) ng/mlDDU VBG pH 7.452 H (7.320-7.420) Chloride (98-107) mmol/L BUN (9-20) mg/dL Creatinine (0.8-1.3) mg/dL Glucose (75-100) mg/dL Lactic Acid (0.7-2.0) mmol/L Calcium (8.4-10.2) mg/dL Ferritin (30.0-300.0) ng/mL Alkaline Phosphatase (35-129) units/L Lactate Dehydrogenase 244 H (91-180) units/L Troponin T (0.00-0.029) ng/mL C-Reactive Protein 11.10 H (0.00-1.30) mg/dL Albumin (3.9-5) g/dL Triglycerides (2-149) mg/dL LDL Cholesterol Direct (50-130) mg/dL HDL Cholesterol (40-59) mg/dL 01/29/21 01/29/21 Range/Units 07:33 09:23 WBC (4.5-11.0) K/mm3 RBC (3.65-5.03) M/mm3 Hgb (11.8-15.2) gm/dl Hct (35.5-45.6) % MCV (84-94) fl MCH (28-32) pg RDW (13.2-15.2) % Plt Count (140-440) K/mm3 Lymph % (Auto) (13.4-35.0) % [place] % (Auto) (0.0-7.3) % Lymph # (Auto) (1.2-5.4) K/mm3 [place] # (Auto) (0.0-0.8) K/mm3 Seg Neutrophils % (40.0-70.0) % Seg Neutrophils # (1.8-7.7) K/mm3 D-Dimer (0-234) ng/mlDDU VBG pH (7.320-7.420) Chloride (98-107) mmol/L BUN (9-20) mg/dL Creatinine (0.8-1.3) mg/dL Glucose (75-100) mg/dL Lactic Acid 3.30 H* (0.7-2.0) mmol/L Calcium (8.4-10.2) mg/dL Ferritin 735.6 H (30.0-300.0) ng/mL Alkaline Phosphatase (35-129) units/L Lactate Dehydrogenase (91-180) units/L Troponin T (0.00-0.029) ng/mL C-Reactive Protein (0.00-1.30) mg/dL Albumin (3.9-5) g/dL Triglycerides (2-149) mg/dL LDL Cholesterol Direct (50-130) mg/dL HDL Cholesterol (40-59) mg/dL - Imaging and Cardiology Chest x-ray: report reviewed (No infiltrates) Assessment and Plan --Acute hypoxic respiratory failure CXR clear, order VQ scan and will r/o COVID 19 -- Sepsis presented with Fever on admission, elevated leukocytosis. CXR clear, blood cx ordered he was treated on previous admission for decubitus ulcer infection We will follow culture, continue empiric antibiotics for now We will also consult ID, will also rule out for Covid -- Stage IV decubitus ulcer We will order for wound care, will obtain culture -- ESRD needing dialysis Avoid nephrotoxic toxic drug. Nephrology consult, hemodialysis as scheduled Monitor I's and O's Monitor electrolytes on BMP --Elevated troponin likely NSTEMI type II, will trend troponin, will get 2D echocardiogram --Elevated D-dimer, will order pulmonary VQ scan -- type 2 diabetes with hyperglycemia Sliding scale insulin, patient on tube feeding Accu-Cheks AC HS --Anemia due to chronic kidney disease monitor the patient closely. repeat CBC in the morning Follow recommendations of nephrology. --History of Hepatitis C Follow LFT Outpatient follow-up --History of CVA with hemiparesis and dysphagia Supportive care, continue tube feeding, PT OT -- DVT prophylaxis Heparin 5000 units subcu every 8 hours for DVT prophylaxis. Pepcid 20 mg with PEG every 24 hours for GI prophylaxis.
[2021-01-29] MEDS ORDERED: hydrALAZINE 20 MG/1 ML INJ IV PRN (12:28)
[2021-01-29] MEDS ORDERED: VANCOMYCIN/NS 1 GM/250 ML 1 GM/250 ML BAG IV SCH (13:00)
[2021-01-29] MEDS ORDERED: CEFEPIME/NS 1 GM/100 ML 1 GM/100 ML BAG IV SCH (13:00)
--- NOTE | 2021-01-29 13:07 | Nuclear Medicine Report ---
NUCLEAR MEDICINE PERFUSION LUNG SCAN INDICATION / CLINICAL INFORMATION: SOB. TECHNIQUE: 5.5 mCi of Tc-99m MAA were given by IV. COMPARISON: Chest radiograph dated today. FINDINGS: PERFUSION: No significant perfusion defects. ADDITIONAL FINDINGS: None. IMPRESSION: 1. Low probability for pulmonary embolism. Signer Name: Keith Oliveira MD Signed: 01/29/2021 1:03 PM Workstation Name: [email or web address]
[2021-01-29] MEDS ORDERED: VANCOMYCIN 1,250 MG in SODIUM CHLORIDE 0.9% 250ML 250 ML IV ONE (15:00)
[2021-01-29] MEDS ORDERED: VANCOMYCIN PHARMACY TO DOSE IV SCH (15:00)
[2021-01-29] MEDS: IPRATROPIUM/ALBUTEROL SULFATE 3 ML AMPUL.NEB IH SCH ×2 (15:05→21:11)
[2021-01-29] MEDS ORDERED: SODIUM BICARBONATE 325 MG TAB FEEDTUBE PRN (15:05)
[2021-01-29] MEDS ORDERED: LIPASE 10,500/PROTEASE 25,000/AMYLASE 43,750 (UNITS) DR CAP FEEDTUBE PRN (15:05)
[2021-01-29] MEDS ORDERED: SIMPLE SYRUP 15 ML FEEDTUBE PRN ×2 (15:05)
[2021-01-29] MEDS: D5W/0.9% NACL 1,000 ML IV SCH (15:15)
[2021-01-29] MEDS: HEPARIN 5,000 UNIT/1 ML VIAL SUB-Q SCH ×2 (15:15→22:54)
[2021-01-29] MEDS: CEFEPIME/NS 1 GM/100 ML 1 GM/100 ML BAG IV SCH (15:18)
[2021-01-29] MEDS: INSULIN LISPRO 100 UNIT/ML SUB-Q SCH (18:49)
--- NOTE | 2021-01-29 19:40 | Event Note ---
Date: 01/29/21 Patient noted on list on review Labs reviewed, no immediate indication for dialysis Recommend cardiology evaluation for elevated troponin Sepsis w/u as per primary Agree with abx Keep MAP>65 Negin Israel MD
[2021-01-29] MEDS ORDERED: CEFEPIME 0.5 GM in SODIUM CHLORIDE 0.9% 100 ML IV SCH (22:00)
[2021-01-30] MEDS: INSULIN LISPRO 100 UNIT/ML SUB-Q SCH ×4 (00:45→17:44)
[2021-01-30] MEDS: HEPARIN 5,000 UNIT/1 ML VIAL SUB-Q SCH ×3 (06:12→21:38)
[2021-01-30] MEDS: IPRATROPIUM/ALBUTEROL SULFATE 3 ML AMPUL.NEB IH SCH ×4 (07:40→21:19)
[2021-01-30 08:11] LABS: Eosinophils # (Auto) 0.1 K/mm3 (0.0-0.4); Monocytes # (Auto) 1.2 K/mm3 (0.0-0.8); Monocytes % (Auto) 10.3 % (0.0-7.3)
[2021-01-30 08:27] LABS: Hemoglobin 6.9 gm/dl (11.8-15.2); Mean Corpuscular Volume 72 fl (84-94); Red Blood Count 3.04 M/mm3 (3.65-5.03)
[2021-01-30 08:28] LABS: Basophils % (Auto) 0.5 % (0.0-1.8); Lymphocytes # (Auto) 0.7 K/mm3 (1.2-5.4); Lymphocytes % (Auto) 6.5 % (13.4-35.0); Mean Corpuscular HGB Conc 32 % (32-34); Platelet Count 405 K/mm3 (140-440); Red Cell Distribution Width 19.9 % (13.2-15.2)
[2021-01-30] MEDS: FAMOTIDINE 10 MG TAB PO SCH (09:32)
[2021-01-30] MEDS ORDERED: SODIUM CHLORIDE 0.9% 100 ML IV PRN (10:00)
--- NOTE | 2021-01-30 11:02 | Consultation ---
History of Present Illness - Reason for Consult Consult date: 01/30/21 fever Requesting physician: EDILSON REAL - History of Present Illness 65-year-old male with history of CVA, quadriparesis, dysphagia, PEG in place, ESRD on hemodialysis, hypertension, stage IV sacral decubitus ulcer, bedbound, admitted 01/29/2021 from half-way secondary to worsening shortness of breath and fever. Patient is not the best historian to infection. Of note, patient was admitted from 01/24/2021-01/27/2021 for same picture with severe fever, elevated lactate without clear source. Blood cultures were negative. Sacral decubits was clean with granulation tissue. On arrival, temperature 101.5, HR 126, RR 32, O2 sat 100, BP 117/66. Initial WBC 13.6. Creatinine 4.6. Platelet s 152. D-dimer 2422. Ferritin 735. Procalcitonin 1.9. CRP 11. Lactate 3.3. Creatinine 4.2. SARS-CoV-2 PCR negative. Blood culture 01/29/2021 no growth today. Chest x-ray unremarkable. VQ scan low probability for PE. Review of Systems: Unable to obtain due to aphasia Past History Past Medical History: diabetes, ESRD, hypertension, stroke Past Surgical History: Other (Status post G-tube placement) Social history: other (Patient lives in a half-way, further details unknown) Family history: other (Unknown) Medications and Allergies Allergies Allergy/AdvReac Type Severity Reaction Status Date / Time No Known Allergies Allergy Verified 01/22/21 21:44 Home Medications Medication Instructions Recorded Confirmed Last Taken Type Lispro Insulin [HumaLOG] 0 unit SUB-Q Q6HR units 01/27/21 01/29/21 Unknown Rx Sulfamethoxazole/Trimethoprim 1 each PO BID #7 tablet 01/27/21 01/29/21 Unknown Rx [Bactrim DS TAB] Active Meds: Active Medications Acetaminophen (Acetaminophen 325 Mg Tab) 650 mg PO Q4H PRN PRN Reason: Pain MILD(1-3)/Fever >100.5/STUART Albuterol/Ipratropium (Ipratropium/Albuterol Sulfate 3 Ml Ampul.Neb) 1 ampul IH Q6HRT [facility] Last Admin: 01/30/21 07:40 Dose: 1 ampul Documented by: Lipase/Protease/Amylase (Lipase 10,500/Protease 25,000/Amylase 43,750 (Units) Dr Sorto) 1 each FEEDTUBE PRN PRN PRN Reason: For Clogged Feeding Tube Famotidine (Famotidine 10 Mg Tab) 10 mg PO QDAC [facility] Last Admin: 01/30/21 09:32 Dose: Not Given Documented by: Heparin Sodium (Porcine) (Heparin 5,000 Unit/1 Ml Vial) 5,000 unit SUB-Q Q8HR [facility] Last Admin: 01/30/21 06:12 Dose: 5,000 unit Documented by: Hydralazine HCl (Hydralazine 20 Mg/1 Ml Inj) 5 mg IV Q30MIN PRN PRN Reason: Hypertension Cefepime HCl (Cefepime/Ns 1 Gm/100 Ml) 1 gm in 100 mls @ 200 mls/hr IV Q24H [facility]; Protocol Last Admin: 01/29/21 15:18 Dose: 200 mls/hr Documented by: Dextrose/Sodium Chloride (D5ns) 1,000 mls @ 42 mls/hr IV DIRECT [facility] Last Admin: 01/29/21 15:15 Dose: 42 mls/hr Documented by: Sodium Chloride (Nacl 0.9%) 100 mls @ 999 mls/hr IV SAROJ PRN PRN Reason: Hypotension Insulin Human Lispro (Insulin Lispro 100 Unit/Ml) 0 unit SUB-Q Q6HR [facility]; Protocol Last Admin: 01/30/21 06:13 Dose: Not Given Documented by: Simple Syrup (Simple Syrup 15 Ml) 15 ml FEEDTUBE PRN PRN PRN Reason: Hypoglycemia Simple Syrup (Simple Syrup 15 Ml) 30 ml FEEDTUBE PRN PRN PRN Reason: Hypoglycemia Sodium Bicarbonate (Sodium Bicarbonate 325 Mg Tab) 325 mg FEEDTUBE PRN PRN PRN Reason: For Clogged Feeding Tube Physical Examination - Constitutional Vitals: Vital Signs Temp Pulse Resp BP Pulse Ox 97.5 F L 89 20 120/71 100 01/30/21 04:27 01/30/21 07:55 01/30/21 07:55 01/30/21 04:27 01/30/21 07:41 Temperature -Last 24 Hours Temperature 97.5 F Temperature 97.8 F Temperature 98.6 F Temperature 99.0 F Temperature 100.5 F Results - Labs CBC & Chem 7: 01/30/21 07:21 01/30/21 07:21 Labs: Abnormal lab results 01/29/21 01/29/21 01/29/21 Range/Units 11:17 18:27 18:32 WBC (4.5-11.0) K/mm3 RBC (3.65-5.03) M/mm3 Hgb (11.8-15.2) gm/dl Hct (35.5-45.6) % MCV (84-94) fl MCH (28-32) pg RDW (13.2-15.2) % Lymph % (Auto) (13.4-35.0) % [place] % (Auto) (0.0-7.3) % Lymph # (Auto) (1.2-5.4) K/mm3 [place] # (Auto) (0.0-0.8) K/mm3 Seg Neutrophils % (40.0-70.0) % Seg Neutrophils # (1.8-7.7) K/mm3 Sodium (137-145) mmol/L BUN (9-20) mg/dL Creatinine (0.8-1.3) mg/dL Glucose (75-100) mg/dL POC Glucose 232 H (70-105) mg/dL Lactic Acid 3.20 H* (0.7-2.0) mmol/L Troponin T 0.438 H* (0.00-0.029) ng/mL 01/29/21 01/30/21 01/30/21 Range/Units 22:10 00:44 06:10 WBC (4.5-11.0) K/mm3 RBC (3.65-5.03) M/mm3 Hgb (11.8-15.2) gm/dl Hct (35.5-45.6) % MCV (84-94) fl MCH (28-32) pg RDW (13.2-15.2) % Lymph % (Auto) (13.4-35.0) % [place] % (Auto) (0.0-7.3) % Lymph # (Auto) (1.2-5.4) K/mm3 [place] # (Auto) (0.0-0.8) K/mm3 Seg Neutrophils % (40.0-70.0) % Seg Neutrophils # (1.8-7.7) K/mm3 Sodium (137-145) mmol/L BUN (9-20) mg/dL Creatinine (0.8-1.3) mg/dL Glucose (75-100) mg/dL POC Glucose 160 H 112 H (70-105) mg/dL Lactic Acid (0.7-2.0) mmol/L Troponin T 0.470 H* (0.00-0.029) ng/mL 01/30/21 01/30/21 01/30/21 Range/Units 07:21 07: 07:21 WBC 11.3 H (4.5-11.0) K/mm3 RBC 3.04 L (3.65-5.03) M/mm3 Hgb 6.9 L (11.8-15.2) gm/dl Hct 22.0 L (35.5-45.6) % MCV 72 L (84-94) fl MCH 23 L (28-32) pg RDW 19.9 H (13.2-15.2) % Lymph % (Auto) 6.5 L (13.4-35.0) % [place] % (Auto) 10.3 H (0.0-7.3) % Lymph # (Auto) 0.7 L (1.2-5.4) K/mm3 [place] # (Auto) 1.2 H (0.0-0.8) K/mm3 Seg Neutrophils % 81.9 H (40.0-70.0) % Seg Neutrophils # 9.0 H (1.8-7.7) K/mm3 Sodium 148 H (137-145) mmol/L BUN 85 H (9-20) mg/dL Creatinine 5.4 H (0.8-1.3) mg/dL Glucose 116 H (75-100) mg/dL POC Glucose (70-105) mg/dL Lactic Acid (0.7-2.0) mmol/L Troponin T 0.437 H* (0.00-0.029) ng/mL Assessment and Plan Cultures: Blood culture 01/29/2021 no growth today. Assessment: 65-year-old male with history of CVA, quadriparesis, dysphagia, PEG in place, ESRD on hemodialysis, hypertension, stage IV sacral decubitus ulcer, bedbound, admitted 01/29/2021 from half-way secondary to worsening shortness of breath and fever: #Severe sepsis: Present on admission with high fever, tachycardia, tachypnea, leukocytosis, elevated lactate; of unclear etiology. Chest x-ray unremarkable. SARS-CoV-2 PCR negative. Of note, patient was admitted from 01/24/2021-01/27/2021 for same picture with severe fever, elevated lactate without clear source. Blood cultures were negative. Sacral decubits was clean with granulation tissue. CRP 11. #Stage IV extensive sacral decubitus: During previous admission was found not infected. #ESRD on hemodialysis Recommendations: -Obtain CT of chest, abdomen and pelvis -Continue cefepime and vancomycin renally adjusted for now -Follow-up blood cultures -If initial work-up is negative use obtain lumbar puncture r/o meningitis -Wound care consult -Sacral offloading Will follow. Latesha Cabrera MD Infectious Diseases [employer] [facility] ([facility] M [phone] O [phone]
[2021-01-30] MEDS: D5W/0.9% NACL 1,000 ML IV SCH (13:24)
[2021-01-30] MEDS ORDERED: SODIUM CHLORIDE 0.9% 500 ML 500 ML IV NR (14:10)
--- NOTE | 2021-01-30 14:11 | Progress Note ---
Assessment and Plan 65-year-old male with history of CVA, quadriparesis, dysphagia, PEG in place, ESRD on hemodialysis, hypertension, stage IV sacral decubitus ulcer, bedbound, admitted 01/29/2021 from [facility] secondary to worsening shortness of breath and fever. Patient is not the best historian to infection. Of note, patient was admitted from 01/24/2021-01/27/2021 for similar picture. On arrival, temperature 101.5, HR 126, RR 32, O2 sat 100, BP 117/66. Initial WBC 13.6. Creatinine 4.6. Platelets 152. D-dimer 2422. Ferritin 735. Procalcitonin 1.9. CRP 11. Lactate 3.3. Creatinine 4.2. SARS-CoV-2 PCR negative. Blood culture 01/29/2021 no growth today. Chest x-ray unremarkable. VQ scan low probability for PE. A/P --Acute hypoxic respiratory failure CXR clear, VQ scan negative for PE and negative for COVID 19 Continue scheduled breathing treatment as needed and supplemental O2 -- Sepsis presented with Fever on admission, elevated leukocytosis. CXR clear, blood cx ordered he was treated on previous admission for decubitus ulcer infection We will follow culture, continue empiric antibiotics for now We will also consult ID, will also rule out for Covid -- Stage IV decubitus ulcer, chronic Ordered for wound care, obtain culture Cannot rule out underlying possible chronic osteomyelitis ID on board -- ESRD needing dialysis Avoid nephrotoxic toxic drug. Nephrology consult, hemodialysis as scheduled Monitor I's and O's Monitor electrolytes on BMP --Elevated troponin likely NSTEMI type II, will trend troponin, will get 2D echocardiogram --Elevated D-dimer, will order pulmonary VQ scan -- type 2 diabetes with hyperglycemia Sliding scale insulin, patient on tube feeding Accu-Cheks AC HS --Anemia due to chronic kidney disease monitor the patient closely. repeat CBC in the morning Follow recommendations of nephrology. --History of Hepatitis C Follow LFT Outpatient follow-up --History of CVA with hemiparesis and dysphagia Supportive care, continue tube feeding, PT OT -- DVT prophylaxis Heparin 5000 units subcu every 8 hours for DVT prophylaxis. Pepcid 20 mg with PEG every 24 hours for GI prophylaxis. Daily clinical course: 01/30/21: Continue hemodialysis per nephrology, Covid test is negative, VQ scan is negative for PE. Preliminary blood culture is negative. ID consulted for antibiotic recommendation. We will continue wound care, will follow fever curve. Continue tube feeding. Continue supportive care.. Requested wound consult. Subjective Date of service: 01/30/21 Interval history: Patient seen and examined. Medical records and medication list reviewed. No acute event overnight noted by the RN. Patient resting on bed Discussed plan of care at bedside with patient's RN. Objective - Exam Narrative Exam: GENERAL: well-developed and malnourished -[place] male lying on bed appeared to be in no discomfort. HEENT: Normocephalic. Atraumatic. No conjunctival congestion or icterus. Patie nt has moist mucous membranes. NECK: Supple. Trachea midline. CHEST/LUNGS: Clear to auscultated bilaterally, breathing nonlabored. No wheezes crackles or rhonchi. HEART/CARDIOVASCULAR: Regular in rate and rhythm. S1 and S2 positive. ABDOMEN: Abdomen is soft, nontender. Patient has normal bowel sounds. PEG tube in place SKIN: There is no rash. Warm and dry. NEURO: Contracted upper extremities, does not follow any command, oriented x0 MUSCULOSKELETAL: No joint effusion or tenderness. Generalized muscle wasting. Sacral wound +ve EXTRIMITY: No edema, no cyanosis or clubbing. Noted pressure sore PSYCH: Unable to assess - Constitutional Vitals: Vital Signs - 12hr 01/30/21 01/30/21 01/30/21 04:27 07:41 07:55 Temperature 97.5 F L Pulse Rate 95 H Pulse Rate [ 89 Throughout] Respiratory 18 Rate Respiratory 20 Rate [ Throughout] Blood Pressure 120/71 O2 Sat by Pulse 100 100 Oximetry 01/30/21 11:52 Temperature 98.8 F Pulse Rate 97 H Pulse Rate [ Throughout] Respiratory 18 Rate Respiratory Rate [ Throughout] Blood Pressure 119/72 O2 Sat by Pulse 100 Oximetry - Labs CBC & Chem 7: 02/01/21 10:10 02/01/21 10:10 Labs: Abnormal lab results 01/29/21 01/29/21 01/29/21 Range/Units 18:27 18:32 22:10 WBC (4.5-11.0) K/mm3 RBC (3.65-5.03) M/mm3 Hgb (11.8-15.2) gm/dl Hct (35.5-45.6) % MCV (84-94) fl MCH (28-32) pg RDW (13.2-15.2) % Lymph % (Auto) (13.4-35.0) % [place] % (Auto) (0.0-7.3) % Lymph # (Auto) (1.2-5.4) K/mm3 [place] # (Auto) (0.0-0.8) K/mm3 Seg Neutrophils % (40.0-70.0) % Seg Neutrophils # (1.8-7.7) K/mm3 Sodium (137-145) mmol/L BUN (9-20) mg/dL Creatinine (0.8-1.3) mg/dL Glucose (75-100) mg/dL POC Glucose 232 H 160 H (70-105) mg/dL Troponin T 0.438 H* (0.00-0.029) ng/mL 01/30/21 01/30/21 01/30/21 Range/Units 00:44 06:10 07:21 WBC (4.5-11.0) K/mm3 RBC (3.65-5.03) M/mm3 Hgb (11.8-15.2) gm/dl Hct (35.5-45.6) % MCV (84-94) fl MCH (28-32) pg RDW (13.2-15.2) % Lymph % (Auto) (13.4-35.0) % [place] % (Auto) (0.0-7.3) % Lymph # (Auto) (1.2-5.4) K/mm3 [place] # (Auto) (0.0-0.8) K/mm3 Seg Neutrophils % (40.0-70.0) % Seg Neutrophils # (1.8-7.7) K/mm3 Sodium (137-145) mmol/L BUN (9-20) mg/dL Creatinine (0.8-1.3) mg/dL Glucose (75-100) mg/dL POC Glucose 112 H (70-105) mg/dL Troponin T 0.470 H* 0.437 H* (0.00-0.029) ng/mL 01/30/21 01/30/21 Range/Units 07:21 07:21 WBC 11.3 H (4.5-11.0) K/mm3 RBC 3.04 L (3.65-5.03) M/mm3 Hgb 6.9 L (11.8-15.2) gm/dl Hct 22.0 L (35.5-45.6) % MCV 72 L (84-94) fl MCH 23 L (28-32) pg RDW 19.9 H (13.2-15.2) % Lymph % (Auto) 6.5 L (13.4-35.0) % [place] % (Auto) 10.3 H (0.0-7.3) % Lymph # (Auto) 0.7 L (1.2-5.4) K/mm3 [place] # (Auto) 1.2 H (0.0-0.8) K/mm3 Seg Neutrophils % 81.9 H (40.0-70.0) % Seg Neutrophils # 9.0 H (1.8-7.7) K/mm3 Sodium 148 H (137-145) mmol/L BUN 85 H (9-20) mg/dL Creatinine 5.4 H (0.8-1.3) mg/dL Glucose 116 H (75-100) mg/dL POC Glucose (70-105) mg/dL Troponin T (0.00-0.029) ng/mL HEART Score - HEART Score Troponin: Troponin T 0.437 ng/mL (0.00-0.029) H* 01/30/21 07:21
--- NOTE | 2021-01-30 15:15 | Consultation ---
History of Present Illness - Reason for Consult Consult date: 01/30/21 end stage renal disease - History of Present Illness This is a 65-year-old man with end-stage renal disease on hemodialysis, history of CVA, quadriparesis, stage IV sacral decubiti ulcer was sent from the half-way to the emergency department due to fever and shortness of breath. He was recently admitted to the hospital for similar picture on discharge following treatment. He is nonverbal at baseline and history is obtained from chart. Nephrology was consulted for ESRD management. Past History Past Medical History: diabetes, ESRD, hypertension, stroke Past Surgical History: Other (Status post G-tube placement) Social history: other (Patient lives in a half-way, further details unknown) Family history: other (Unknown) Medications and Allergies Allergies Allergy/AdvReac Type Severity Reaction Status Date / Time No Known Allergies Allergy Verified 01/22/21 21:44 Home Medications Medication Instructions Recorded Confirmed Last Taken Type Lispro Insulin [HumaLOG] 0 unit SUB-Q Q6HR units 01/27/21 01/29/21 Unknown Rx Sulfamethoxazole/Trimethoprim 1 each PO BID #7 tablet 01/27/21 01/29/21 Unknown Rx [Bactrim DS TAB] Active Meds: Active Medications Acetaminophen (Acetaminophen 325 Mg Tab) 650 mg PO Q4H PRN PRN Reason: Pain MILD(1-3)/Fever >100.5/STUART Albuterol/Ipratropium (Ipratropium/Albuterol Sulfate 3 Ml Ampul.Neb) 1 ampul IH Q6HRT [facility] Last Admin: 01/30/21 07:40 Dose: 1 ampul Documented by: Lipase/Protease/Amylase (Lipase 10,500/Protease 25,000/Amylase 43,750 (Units) Dr Sorto) 1 each FEEDTUBE PRN PRN PRN Reason: For Clogged Feeding Tube Famotidine (Famotidine 10 Mg Tab) 10 mg PO QDAC [facility] Last Admin: 01/30/21 09:32 Dose: Not Given Documented by: Heparin Sodium (Porcine) (Heparin 5,000 Unit/1 Ml Vial) 5,000 unit SUB-Q Q8HR [facility] Last Admin: 01/30/21 13:24 Dose: 5,000 unit Documented by: Hydralazine HCl (Hydralazine 20 Mg/1 Ml Inj) 5 mg IV Q30MIN PRN PRN Reason: Hypertension Cefepime HCl (Cefepime/Ns 1 Gm/100 Ml) 1 gm in 100 mls @ 200 mls/hr IV Q24H [facility]; Protocol Last Admin: 01/29/21 15:18 Dose: 200 mls/hr Documented by: Dextrose/Sodium Chloride (D5ns) 1,000 mls @ 42 mls/hr IV DIRECT [facility] Last Admin: 01/30/21 13:24 Dose: 42 mls/hr Documented by: Sodium Chloride (Nacl 0.9%) 100 mls @ 999 mls/hr IV SAROJ PRN PRN Reason: Hypotension Sodium Chloride (Nacl 0.9% 500 Ml) 500 mls @ 0 mls/hr IV ONCE NR Stop: 01/30/21 20:00 Insulin Human Lispro (Insulin Lispro 100 Unit/Ml) 0 unit SUB-Q Q6HR [facility]; Protocol Last Admin: 01/30/21 13:23 Dose: Not Given Documented by: Simple Syrup (Simple Syrup 15 Ml) 15 ml FEEDTUBE PRN PRN PRN Reason: Hypoglycemia Simple Syrup (Simple Syrup 15 Ml) 30 ml FEEDTUBE PRN PRN PRN Reason: Hypoglycemia Sodium Bicarbonate (Sodium Bicarbonate 325 Mg Tab) 325 mg FEEDTUBE PRN PRN PRN Reason: For Clogged Feeding Tube Review of Systems ROS unobtainable: due to mental status Exam - Vital Signs Vital signs: Vital Signs Pulse 126 H 01/29/21 06:07 - Physical Exam Narrative exam: General: No acute distress HEENT: Oral mucosa moist Neck: Supple, no JVD Chest: Clear to auscultation bilaterally Heart: RRR, S1 and S2, no pericardial rub Abdomen: Soft, nontender, no renal bruit Extremity: No peripheral cyanosis, edema Neurological: Eyes open but does not respond to command, nonverbal Dermatology: No skin rash Psych: No agitation Musculoskeletal: No joint effusion Results - Lab Results 01/30/21 07:21 01/30/21 07:21 Most recent lab results Calcium 10.0 mg/dL (8.4-10.2) 01/30/21 07:21 Assessment and Plan Assessment - End-stage renal disease on hemodialysis - Hypernatremia, mild - Elevated troponin - Anemia of ESRD - Sepsis Recommendations - Hold HD until cleared by cardiology, spoke to Dr Torres and requested [facility] evaluation due to elevated troponin - Monitor labs and volume status daily and assess need for additional dialysis session - Transfuse for hgb < 7 - Epogen with HD once acute illness resolves - ESRD diet with 1.4 g/kg per day protein - Renally dose medication for creatinine clearance less than 15 cc/min - Patient is non-verbal and is on chronic HD, he continued to received HD until recent discharge, ok to resume following cardiac evaluation
[2021-01-30] MEDS: CEFEPIME/NS 1 GM/100 ML 1 GM/100 ML BAG IV SCH (18:58)
[2021-01-30 21:24] LABS: Hematocrit 22.3 % (35.5-45.6); Hemoglobin 7.2 gm/dl (11.8-15.2)
[2021-01-31] MEDS: INSULIN LISPRO 100 UNIT/ML SUB-Q SCH ×3 (00:49→12:43)
[2021-01-31] MEDS: IPRATROPIUM/ALBUTEROL SULFATE 3 ML AMPUL.NEB IH SCH ×4 (05:55→21:25)
[2021-01-31] MEDS: D5W/0.9% NACL 1,000 ML IV SCH (06:00)
[2021-01-31] MEDS: HEPARIN 5,000 UNIT/1 ML VIAL SUB-Q SCH ×3 (06:02→21:04)
[2021-01-31 08:10] LABS: Basophils % (Auto) 0.6 % (0.0-1.8); Eosinophils # (Auto) 0.1 K/mm3 (0.0-0.4); Eosinophils % (Auto) 1.1 % (0.0-4.3); Hematocrit 20.7 % (35.5-45.6); Hemoglobin 6.7 gm/dl (11.8-15.2); Lymphocytes # (Auto) 0.7 K/mm3 (1.2-5.4); Lymphocytes % (Auto) 8.7 % (13.4-35.0); Mean Corpuscular HGB Conc 33 % (32-34); Mean Corpuscular Volume 72 fl (84-94); Monocytes # (Auto) 1.2 K/mm3 (0.0-0.8); Monocytes % (Auto) 14.3 % (0.0-7.3); Platelet Count 380 K/mm3 (140-440); Red Blood Count 2.87 M/mm3 (3.65-5.03)
[2021-01-31 08:28] LABS: Calcium 9.1 mg/dL (8.4-10.2)
[2021-01-31] MEDS: FAMOTIDINE 10 MG TAB PO SCH (10:01)
--- NOTE | 2021-01-31 10:21 | Consultation ---
History of Present Illness Consult date: 01/31/21 Consult reason: abnormal cardiac enzymes History of present illness: 65M who is a custodial resident with PMHx of stroke with quadriplegia - un able to communicate, dysphagia s/p G-tibe placement, ESRD on HD, HTN, and sacral decubitus ulcer is admitted for respiratory distress and sepsis due to suspected infected sacral ulcer. Cardiology consulted for elevated troponin. Kodi is unable to provide any history. No family at bedside. Patient was noted to be febrile on presentation. Labs showed anemia, elevated lactate, and serial troponin x5 showing mild elevation with decreasing trend (0.54 --> 0.412). Past History Past Medical History: diabetes, ESRD, hypertension, stroke Past Surgical History: Other (Status post G-tube placement) Social history: other (Patient lives in a custodial, further details unknown) Family history: other (Unknown) Medications and Allergies Allergies Allergy/AdvReac Type Severity Reaction Status Date / Time No Known Allergies Allergy Verified 01/22/21 21:44 Home Medications Medication Instructions Recorded Confirmed Last Taken Type Lispro Insulin [HumaLOG] 0 unit SUB-Q Q6HR units 01/27/21 01/29/21 Unknown Rx Sulfamethoxazole/Trimethoprim 1 each PO BID #7 tablet 01/27/21 01/29/21 Unknown Rx [Bactrim DS TAB] Active Meds: Active Medications Acetaminophen (Acetaminophen 325 Mg Tab) 650 mg PO Q4H PRN PRN Reason: Pain MILD(1-3)/Fever >100.5/STUART Albuterol/Ipratropium (Ipratropium/Albuterol Sulfate 3 Ml Ampul.Neb) 1 ampul IH Q6HRT [facility] Last Admin: 01/31/21 05:55 Dose: Not Given Documented by: Lipase/Protease/Amylase (Lipase 10,500/Protease 25,000/Amylase 43,750 (Units) Dr Sorto) 1 each FEEDTUBE PRN PRN PRN Reason: For Clogged Feeding Tube Famotidine (Famotidine 10 Mg Tab) 10 mg PO QDAC [facility] Last Admin: 01/31/21 10:01 Dose: 10 mg Documented by: Heparin Sodium (Porcine) (Heparin 5,000 Unit/1 Ml Vial) 5,000 unit SUB-Q Q8HR [facility] Last Admin: 01/31/21 06:02 Dose: 5,000 unit Documented by: Hydralazine HCl (Hydralazine 20 Mg/1 Ml Inj) 5 mg IV Q30MIN PRN PRN Reason: Hypertension Cefepime HCl (Cefepime/Ns 1 Gm/100 Ml) 1 gm in 100 mls @ 200 mls/hr IV Q24H [facility]; Protocol Last Infusion: 01/30/21 21:08 Dose: Infused Documented by: Dextrose/Sodium Chloride (D5ns) 1,000 mls @ 42 mls/hr IV DIRECT [facility] Last Admin: 01/31/21 06:00 Dose: 42 mls/hr Documented by: Sodium Chloride (Nacl 0.9%) 100 mls @ 999 mls/hr IV SAROJ PRN PRN Reason: Hypotension Insulin Human Lispro (Insulin Lispro 100 Unit/Ml) 0 unit SUB-Q Q6HR [facility]; Protocol Last Admin: 01/31/21 07:29 Dose: Not Given Documented by: Simple Syrup (Simple Syrup 15 Ml) 15 ml FEEDTUBE PRN PRN PRN Reason: Hypoglycemia Simple Syrup (Simple Syrup 15 Ml) 30 ml FEEDTUBE PRN PRN PRN Reason: Hypoglycemia Sodium Bicarbonate (Sodium Bicarbonate 325 Mg Tab) 325 mg FEEDTUBE PRN PRN PRN Reason: For Clogged Feeding Tube Physical Examination Vital Signs Pulse 126 H 01/29/21 06:07 Narrative exam: Gen-NAD, comfortable, not able to communicate, frail HEENT-atraumatic, normocephalic, no scleral icterus Neck-supple, no JVD CV-RRR, no murmurs; right chest HD catheter Abd-soft/nt/nd Ext-warm to touch, no edema Skin-no obvious rash Neuro-awake but not communicative, not able to move extremities Results 01/31/21 07:34 01/31/21 07:34 CBC 01/30/21 01/31/21 Range/Units 20:59 07:34 WBC 8.5 (4.5-11.0) K/mm3 RBC 2.87 L (3.65-5.03) M/mm3 Hgb 7.2 L 6.7 L (11.8-15.2) gm/dl Hct 22.3 L 20.7 L (35.5-45.6) % Plt Count 380 (140-440) K/mm3 Lymph # (Auto) 0.7 L (1.2-5.4) K/mm3 [place] # (Auto) 1.2 H (0.0-0.8) K/mm3 Eos # (Auto) 0.1 (0.0-0.4) K/mm3 Baso # (Auto) 0.0 (0.0-0.1) K/mm3 Comprehensive Metabolic Panel 01/31/21 Range/Units 07:34 Sodium 142 (137-145) mmol/L Potassium 3.3 L (3.6-5.0) mmol/L Chloride 101.3 (98-107) mmol/L Carbon Dioxide 27 (22-30) mmol/L BUN 29 H (9-20) mg/dL Creatinine 2.7 H (0.8-1.3) mg/dL Glucose 134 H (75-100) mg/dL Calcium 9.1 (8.4-10.2) mg/dL Tele - reviewed, SR, no events EKG - sinus tachycardia with PACs, nonspecific T wave changes 01/29/21 Echo - normal LV and RV function, no pericardial effusion Assessment and Plan #Troponin elevation #ESRD on HD #H/o stroke with quadraplegia #Sepsis, secondary to suspected infection of sacral decubitus ulcer #HTN -Patient has mild troponin elevation with decreasing trend in the setting of renal failure and severe anemia. This finding is non-specific and not consistent with ACS. No need to further check troponin. -Normal LV/RV function and no pericardial effusion per echo this admission. -No further cardiac workup recommended at this point.
--- NOTE | 2021-01-31 15:01 | Progress Note ---
Assessment and Plan 65-year-old male with history of CVA, quadriparesis, dysphagia, PEG in place, ESRD on hemodialysis, hypertension, stage IV sacral decubitus ulcer, bedbound, admitted 01/29/2021 from retirement secondary to worsening shortness of breath and fever. Patient is not the best historian to infection. Of note, patient was admitted from 01/24/2021-01/27/2021 for similar picture. On arrival, temperature 101.5, HR 126, RR 32, O2 sat 100, BP 117/66. Initial WBC 13.6. Creatinine 4.6. Platelets 152. D-dimer 2422. Ferritin 735. Procalcitonin 1.9. CRP 11. Lactate 3.3. Creatinine 4.2. SARS-CoV-2 PCR negative. Blood culture 01/29/2021 no growth today. Chest x-ray unremarkable. VQ scan low probability for PE. A/P --Acute hypoxic respiratory failure CXR clear, VQ scan negative for PE and negative for COVID 19 Continue scheduled breathing treatment as needed and supplemental O2 -- Sepsis presented with Fever on admission, elevated leukocytosis. CXR clear, blood cx negative he was treated on previous admission for decubitus ulcer infection Cannot rule out underlying chronic sacral osteomyelitis continue empiric antibiotics for now Consulted ID, ruled out Covid -- Stage IV decubitus ulcer, chronic Ordered for wound care, obtain culture Cannot rule out underlying possible chronic osteomyelitis ID on board -- ESRD needing dialysis Avoid nephrotoxic toxic drug. Nephrology consult, hemodialysis as scheduled Monitor I's and O's Monitor electrolytes on BMP --Elevated troponin likely NSTEMI type II, will trend troponin, will get 2D echocardiogram --Elevated D-dimer, negative for PE in VQ scan -- type 2 diabetes with hyperglycemia Sliding scale insulin, patient on tube feeding Accu-Cheks AC HS --Anemia due to chronic kidney disease monitor the patient closely. repeat CBC in the morning Follow recommendations of nephrology. --History of Hepatitis C Follow LFT Outpatient follow-up --History of CVA with hemiparesis and dysphagia Supportive care, continue tube feeding, PT OT -- DVT prophylaxis Heparin 5000 units subcu every 8 hours for DVT prophylaxis. Pepcid 20 mg with PEG every 24 hours for GI prophylaxis. Daily clinical course: 01/30/21: Continue hemodialysis per nephrology, Covid test is negative, VQ scan is negative for PE. Preliminary blood culture is negative. ID consulted for antibiotic recommendation. We will continue wound care, will follow fever curve. Continue tube feeding. Continue supportive care.. Requested wound consult. 01/31/21: wait for wound cx, wound eval. cont abx, TF diet. Supplemental O2 and breathing treatment as needed. Subjective Date of service: 01/31/21 Interval history: Patient seen and examined. Medical records and medication list reviewed. No acute event overnight noted by the RN. Patient resting on bed, Discussed plan of care at bedside with patient's RN. Objective - Exam Narrative Exam: GENERAL: well-developed and malnourished -Dominican male lying on bed appeared to be in no discomfort. HEENT: Normocephalic. Atraumatic. No conjunctival congestion or icterus. Patient has moist mucous membranes. NECK: Supple. Trachea midline. CHEST/LUNGS: Clear to auscultated bilaterally, breathing nonlabored. No wheezes crackles or rhonchi. HEART/CARDIOVASCULAR: Regular in rate and rhythm. S1 and S2 positive. ABDOMEN: Abdomen is soft, nontender. Patient has normal bowel sounds. PEG tube in place SKIN: There is no rash. Warm and dry. NEURO: Contracted upper extremities, does not follow any command, oriented x0 MUSCULOSKELETAL: No joint effusion or tenderness. Generalized muscle wasting. Sacral wound +ve EXTRIMITY: No edema, no cyanosis or clubbing. Noted pressure sore PSYCH: Unable to assess - Constitutional Vitals: Vital Signs - 12hr 01/31/21 01/31/21 05:05 10:50 Temperature 98.2 F Pulse Rate 99 H Respiratory 20 Rate Blood Pressure 143/79 O2 Sat by Pulse 98 97 Oximetry - Labs CBC & Chem 7: 02/01/21 10:10 02/01/21 10:10 Labs: Abnormal lab results 01/30/21 01/30/21 01/30/21 Range/Units 20:59 20:59 20:59 RBC (3.65-5.03) M/mm3 Hgb 7.2 L (11.8-15.2) gm/dl Hct 22.3 L (35.5-45.6) % MCV (84-94) fl MCH (28-32) pg RDW (13.2-15.2) % Lymph % (Auto) (13.4-35.0) % [place] % (Auto) (0.0-7.3) % Lymph # (Auto) (1.2-5.4) K/mm3 [place] # (Auto) (0.0-0.8) K/mm3 Seg Neutrophils % (40.0-70.0) % Potassium (3.6-5.0) mmol/L BUN (9-20) mg/dL Creatinine (0.8-1.3) mg/dL Glucose (75-100) mg/dL POC Glucose (70-105) mg/dL Troponin T 0.412 H* (0.00-0.029) ng/mL Vancomycin Trough (5.0-20.0) ug/mL Crossmatch See Detail 01/31/21 01/31/21 01/31/21 Range/Units 00:47 06:38 07:34 RBC 2.87 L (3.65-5.03) M/mm3 Hgb 6.7 L (11.8-15.2) gm/dl Hct 20.7 L (35.5-45.6) % MCV 72 L (84-94) fl MCH 24 L (28-32) pg RDW 20.0 H (13.2-15.2) % Lymph % (Auto) 8.7 L (13.4-35.0) % [place] % (Auto) 14.3 H (0.0-7.3) % Lymph # (Auto) 0.7 L (1.2-5.4) K/mm3 [place] # (Auto) 1.2 H (0.0-0.8) K/mm3 Seg Neutrophils % 75.3 H (40.0-70.0) % Potassium (3.6-5.0) mmol/L BUN (9-20) mg/dL Creatinine (0.8-1.3) mg/dL Glucose (75-100) mg/dL POC Glucose 138 H 136 H (70-105) mg/dL Troponin T (0.00-0.029) ng/mL Vancomycin Trough (5.0-20.0) ug/mL Crossmatch 01/31/21 01/31/21 01/31/21 Range/Units 07:34 07:39 12:17 RBC (3.65-5.03) M/mm3 Hgb (11.8-15.2) gm/dl Hct (35.5-45.6) % MCV (84-94) fl MCH (28-32) pg RDW (13.2-15.2) % Lymph % (Auto) (13.4-35.0) % [place] % (Auto) (0.0-7.3) % Lymph # (Auto) (1.2-5.4) K/mm3 [place] # (Auto) (0.0-0.8) K/mm3 Seg Neutrophils % (40.0-70.0) % Potassium 3.3 L (3.6-5.0) mmol/L BUN 29 H (9-20) mg/dL Creatinine 2.7 H (0.8-1.3) mg/dL Glucose 134 H (75-100) mg/dL POC Glucose 170 H (70-105) mg/dL Troponin T (0.00-0.029) ng/mL Vancomycin Trough 20.1 H (5.0-20.0) ug/mL Crossmatch HEART Score - HEART Score Troponin: Troponin T 0.412 ng/mL (0.00-0.029) H* 01/30/21 20:59
[2021-01-31] MEDS: CEFEPIME/NS 1 GM/100 ML 1 GM/100 ML BAG IV SCH (15:25)
[2021-01-31] MEDS ORDERED: SODIUM CHLORIDE 0.9% 250ML 250 ML IV ONE (16:00)
--- NOTE | 2021-01-31 20:08 | Progress Note ---
Assessment and Plan Assessment - End-stage renal disease on hemodialysis - Hypernatremia, mild - Elevated troponin - Anemia of ESRD - Sepsis, [facility] site c/d/i. Blood cultures NGTD Recommendations - Continue HD TTS - Monitor labs and volume status daily and assess need for additional dialysis session - Transfuse for hgb < 7 - Epogen with HD - ESRD diet with 1.4 g/kg per day protein - Renally dose medication for creatinine clearance less than 15 cc/min - Anitbiotics as per ID, plans for additional w/u noted Subjective Date of service: 01/31/21 Principal diagnosis: Sepsis Interval history: Resting in bed. Remains nonverbal. Objective - Exam Narrative Exam: General: No acute distress HEENT: Oral mucosa moist Neck: Supple, no JVD Chest: Clear to auscultation bilaterally Heart: RRR, S1 and S2, no pericardial rub Abdomen: Soft, nontender, no renal bruit Extremity: No peripheral cyanosis, edema Neurological: Eyes open but does not respond to command, nonverbal Dermatology: No skin rash Psych: No agitation Musculoskeletal: No joint effusion [facility] site c/d/i - Vital Signs Vital signs: Vital Signs - 12hr 01/31/21 01/31/21 01/31/21 10:40 10:50 14:35 Temperature Pulse Rate Pulse Rate [ 106 H 94 H Anterior Bilateral Throughout] Pulse Rate [ 92 H 96 H Throughout] Respiratory Rate Respiratory 18 20 Rate [Anterior Bilateral Throughout] Respiratory 18 18 Rate [ Throughout] Blood Pressure O2 Sat by Pulse 97 Oximetry 01/31/21 01/31/21 01/31/21 16:13 16:28 16:58 Temperature 98.9 F 99.6 F 99.6 F Pulse Rate 107 H 107 H 106 H Pulse Rate [ Anterior Bilateral Throughout] Pulse Rate [ Throughout] Respiratory 20 18 20 Rate Respiratory Rate [Anterior Bilateral Throughout] Respiratory Rate [ Throughout] Blood Pressure 118/74 114/74 114/74 O2 Sat by Pulse Oximetry 01/31/21 01/31/21 01/31/21 17:28 17:58 18:28 Temperature 98.9 F 99.6 F 99.5 F Pulse Rate 106 H 108 H 105 H Pulse Rate [ Anterior Bilateral Throughout] Pulse Rate [ Throughout] Respiratory 20 20 20 Rate Respiratory Rate [Anterior Bilateral Throughout] Respiratory Rate [ Throughout] Blood Pressure 116/74 114/69 110/68 O2 Sat by Pulse Oximetry - Lab 01/31/21 07:34 01/31/21 07:34 Most recent lab results Calcium 9.1 mg/dL (8.4-10.2) 01/31/21 07:34 Medications & Allergies - Medications Allergies/Adverse Reactions: Allergies No Known Allergies Allergy (Verified 01/22/21 21:44) Home Medications: Home Medications Medication Instructions Recorded Confirmed Last Taken Type Lispro Insulin [HumaLOG] 0 unit SUB-Q Q6HR units 01/27/21 01/29/21 Unknown Rx Sulfamethoxazole/Trimethoprim 1 each PO BID #7 tablet 01/27/21 01/29/21 Unknown Rx [Bactrim DS TAB] Active Medications: Generic Name Dose Route Start Last Admin Trade Name Freq PRN Reason Stop Dose Admin Acetaminophen 650 mg 01/29/21 12:28 Acetaminophen 325 Mg Tab PO Q4H PRN Pain MILD(1-3)/Fever >100.5/STUART Albuterol/Ipratropium 1 ampul 01/29/21 14:00 01/31/21 14:11 Ipratropium/Albuterol Sulfate 3 Ml Ampul.Neb IH 1 ampul Q6HRT GLORIA Administration Lipase/Protease/Amylase 1 each 01/29/21 15:05 Lipase 10,500/Protease 25,000/Amylase 43,750 (Units) Dr Sorto FEEDTUBE PRN PRN For Clogged Feeding Tube Famotidine 10 mg 01/30/21 07:30 01/31/21 10:01 Famotidine 10 Mg Tab PO 10 mg QDAC GLORIA Administration Heparin Sodium (Porcine) 5,000 unit 01/29/21 14:00 01/31/21 13:40 Heparin 5,000 Unit/1 Ml Vial SUB-Q 5,000 unit Q8HR GLORIA Administration Hydralazine HCl 5 mg 01/29/21 12:28 Hydralazine 20 Mg/1 Ml Inj IV Q30MIN PRN Hypertension Cefepime HCl 1 gm in 100 mls @ 200 mls/hr 01/29/21 15:00 01/31/21 15:25 Cefepime/Ns 1 Gm/100 Ml IV 200 mls/hr Q24H GLORIA Administration Protocol Dextrose/Sodium Chloride 1,000 mls @ 42 mls/hr 01/29/21 16:00 01/31/21 06:00 D5ns IV 42 mls/hr DIRECT GLORIA Administration Sodium Chloride 100 mls @ 999 mls/hr 01/30/21 10:00 Nacl 0.9% IV SAROJ PRN Hypotension Sodium Chloride 250 mls @ 42 mls/hr 01/31/21 16:00 01/31/21 15:26 Nacl 0.9% 250ml IV 01/31/21 21:57 42 mls/hr ONCE ONE Administration Insulin Human Lispro 0 unit 01/29/21 18:00 01/31/21 12:43 Insulin Lispro 100 Unit/Ml SUB-Q 1 unit Q6HR GLORIA Administration Protocol Simple Syrup 15 ml 01/29/21 15:05 Simple Syrup 15 Ml FEEDTUBE PRN PRN Hypoglycemia Simple Syrup 30 ml 01/29/21 15:05 Simple Syrup 15 Ml FEEDTUBE PRN PRN Hypoglycemia Sodium Bicarbonate 325 mg 01/29/21 15:05 Sodium Bicarbonate 325 Mg Tab FEEDTUBE PRN PRN For Clogged Feeding Tube
[2021-01-31] MEDS: ACETAMINOPHEN 325 MG TAB PO PRN (20:48)
[2021-01-31 23:55] LABS: Hematocrit 25.8 % (35.5-45.6); Hemoglobin 8.4 gm/dl (11.8-15.2)
[2021-02-01] MEDS: INSULIN LISPRO 100 UNIT/ML SUB-Q SCH ×4 (00:34→21:34)
[2021-02-01] MEDS: IPRATROPIUM/ALBUTEROL SULFATE 3 ML AMPUL.NEB IH SCH ×4 (02:00→22:01)
[2021-02-01] MEDS: HEPARIN 5,000 UNIT/1 ML VIAL SUB-Q SCH ×3 (05:12→21:37)
[2021-02-01] MEDS: FAMOTIDINE 10 MG TAB PO SCH (09:30)
--- NOTE | 2021-02-01 09:57 | Progress Note ---
Assessment and Plan Assessment - End-stage renal disease on hemodialysis - Sepsis --Blood cx: NGTD (January 29) - Stage IV decubitus ulcer - Hypernatremia, mild - Elevated troponin - Anemia of ESRD Recommendations - Continue HD TTS - Monitor labs and volume status daily and assess need for additional dialysis session - Abx per ID - Transfuse for hgb < 7 - Epogen with HD - ESRD diet with 1.4 g/kg per day protein - Renally dose medication for creatinine clearance less than 15 cc/min Subjective Date of service: 02/01/21 Principal diagnosis: Sepsis Interval history: No acute events Objective - Vital Signs Vital signs: Vital Signs - 12hr 01/31/21 02/01/21 02/01/21 22:12 04:33 04:36 Temperature 100 F H 99.7 F H Pulse Rate 111 H Respiratory 18 Rate Blood Pressure 125/71 O2 Sat by Pulse 100 Oximetry - General Appearance General appearance: well-developed, well-nourished EENT: ATNC Respiratory: Present: Clear to Ascultation Cardiology: regular, S1S2 Integumentary: warm and dry Musculoskeletal: other (no edema) - Lab 02/01/21 10:10 02/01/21 10:10 Most recent lab results Calcium 9.1 mg/dL (8.4-10.2) 01/31/21 07:34 Medications & Allergies - Medications Allergies/Adverse Reactions: Allergies No Known Allergies Allergy (Verified 01/22/21 21:44) Home Medications: Home Medications Medication Instructions Recorded Confirmed Last Taken Type Lispro Insulin [HumaLOG] 0 unit SUB-Q Q6HR units 01/27/21 01/29/21 Unknown Rx Sulfamethoxazole/Trimethoprim 1 each PO BID #7 tablet 01/27/21 01/29/21 Unknown Rx [Bactrim DS TAB] Active Medications: Generic Name Dose Route Start Last Admin Trade Name Freq PRN Reason Stop Dose Admin Acetaminophen 650 mg 01/29/21 12:28 01/31/21 20:48 Acetaminophen 325 Mg Tab PO 650 mg Q4H PRN Administration Pain MILD(1-3)/Fever >100.5/STUART Albuterol/Ipratropium 1 ampul 01/29/21 14:00 02/01/21 08:41 Ipratropium/Albuterol Sulfate 3 Ml Ampul.Neb IH 1 ampul Q6HRT GLORIA Administration Lipase/Protease/Amylase 1 each 01/29/21 15:05 Lipase 10,500/Protease 25,000/Amylase 43,750 (Units) Dr Sorto FEEDTUBE PRN PRN For Clogged Feeding Tube Famotidine 10 mg 01/30/21 07:30 01/31/21 10:01 Famotidine 10 Mg Tab PO 10 mg QDAC GLORIA Administration Heparin Sodium (Porcine) 5,000 unit 01/29/21 14:00 02/01/21 05:12 Heparin 5,000 Unit/1 Ml Vial SUB-Q 5,000 unit Q8HR GLORIA Administration Hydralazine HCl 5 mg 01/29/21 12:28 Hydralazine 20 Mg/1 Ml Inj IV Q30MIN PRN Hypertension Cefepime HCl 1 gm in 100 mls @ 200 mls/hr 01/29/21 15:00 01/31/21 15:25 Cefepime/Ns 1 Gm/100 Ml IV 200 mls/hr Q24H GLORIA Administration Protocol Dextrose/Sodium Chloride 1,000 mls @ 42 mls/hr 01/29/21 16:00 01/31/21 06:00 D5ns IV 42 mls/hr DIRECT GLORIA Administration Sodium Chloride 100 mls @ 999 mls/hr 01/30/21 10:00 Nacl 0.9% IV SAROJ PRN Hypotension Insulin Human Lispro 0 unit 01/29/21 18:00 02/01/21 05:28 Insulin Lispro 100 Unit/Ml SUB-Q 1 unit Q6HR GLORIA Administration Protocol Simple Syrup 15 ml 01/29/21 15:05 Simple Syrup 15 Ml FEEDTUBE PRN PRN Hypoglycemia Simple Syrup 30 ml 01/29/21 15:05 Simple Syrup 15 Ml FEEDTUBE PRN PRN Hypoglycemia Sodium Bicarbonate 325 mg 01/29/21 15:05 Sodium Bicarbonate 325 Mg Tab FEEDTUBE PRN PRN For Clogged Feeding Tube
[2021-02-01 10:50] LABS: Hematocrit 25.3 % (35.5-45.6); Hemoglobin 8.2 gm/dl (11.8-15.2); Mean Corpuscular HGB Conc 33 % (32-34); Mean Corpuscular Volume 75 fl (84-94); Platelet Count 362 K/mm3 (140-440); Red Blood Count 3.36 M/mm3 (3.65-5.03)
[2021-02-01 11:03] LABS: Calcium 9.6 mg/dL (8.4-10.2)
[2021-02-01 11:04] LABS: Red Cell Distribution Width 20.2 % (13.2-15.2)
--- NOTE | 2021-02-01 11:40 | Electrocardiograph Report ---
[facility] Test Date: 2021-01-29 Test Time: 10:31:33 Pat Name: CHRIS VILLALBA Department: Room: A371 1 Gender: M Home Worker: IRINA : 1955 Requested By: NEW HERNADEZ Order Number: [id number] Reading MD: Derick Yanez Measurements Intervals [place] Rate: 109 P: 0 OR: 88 QRS: 41 QRSD: 79 T: -87 QT: QTc: 0 Interpretive Statements Sinus or atrial tachycardia Atrial premature complex Nonspecific T abnormalities, diffuse leads No previous ECG available for comparison Electronically Signed On 02-01-2021 11:40:14 EDT by Derick Yanez
--- NOTE | 2021-02-01 12:08 | Progress Note ---
Assessment and Plan - Patient Problems (1) Elevated troponin Current Visit: Yes Status: Acute Plan to address problem: Nonspecific, isolated troponin elevation in the patient with end-stage renal disease on hemodialysis. No acute cardiac complaints, left ventricular ejection fraction 60 to 65% on echocardiogram, will manage conservatively. Subjective Date of service: 02/01/21 Principal diagnosis: Sepsis Interval history: Patient is comfortable, on bedrest, noncommunicative. No acute distress. Objective Vital Signs Temp Pulse Pulse Pulse Resp Resp Resp 02/01/21 08:41 111 H 20 02/01/21 04:36 99.7 F H 18 02/01/21 04:33 111 H 01/31/21 22:12 100 F H 01/31/21 21:31 01/31/21 21:25 109 H 20 01/31/21 20:40 101.9 F H 110 H 17 01/31/21 19:30 01/31/21 18:28 99.5 F 105 H 20 01/31/21 17:58 99.6 F 108 H 20 01/31/21 17:28 98.9 F 106 H 20 01/31/21 16:58 99.6 F 106 H 20 01/31/21 16:28 99.6 F 107 H 18 01/31/21 16:13 98.9 F 107 H 20 01/31/21 14:35 94 H 96 H 20 18 BP Pulse Ox 02/01/21 08:41 100 02/01/21 04:36 02/01/21 04:33 125/71 100 01/31/21 22:12 01/31/21 21:31 100 01/31/21 21:25 01/31/21 20:40 99/67 100 01/31/21 19:30 114/70 01/31/21 18:28 110/68 01/31/21 17:58 114/69 01/31/21 17:28 116/74 01/31/21 16:58 114/74 01/31/21 16:28 114/74 01/31/21 16:13 118/74 01/31/21 14:35 - Physical Examination General: Cachectic, Other (Noncommunicative) HEENT: Positive: PERRL Neck: Positive: neck supple Cardiac: Positive: Reg Rate and Rhythm Lungs: Positive: Decreased Breath Sounds Neuro: Positive: Weakness Abdomen: Positive: Soft Skin: Positive: Clear Extremities: Absent: edema - Labs and Meds CBC 01/31/21 02/01/21 Range/Units 23:35 10:10 WBC 10.6 (4.5-11.0) K/mm3 RBC 3.36 L (3.65-5.03) M/mm3 Hgb 8.4 L 8.2 L (11.8-15.2) gm/dl Hct 25.8 L 25.3 L (35.5-45.6) % Plt Count 362 (140-440) K/mm3 Comprehensive Metabolic Panel 02/01/21 Range/Units 10:10 Sodium 142 (137-145) mmol/L Potassium 3.7 (3.6-5.0) mmol/L Chloride 103.9 (98-107) mmol/L Carbon Dioxide 22 (22-30) mmol/L BUN 42 H (9-20) mg/dL Creatinine 3.9 H (0.8-1.3) mg/dL Glucose 200 H (75-100) mg/dL Calcium 9.6 (8.4-10.2) mg/dL
--- NOTE | 2021-02-01 14:48 | Progress Note ---
Assessment and Plan Cultures: Blood culture 01/29/2021 no growth 01/30/2021 buttock wound culture: Mixed Gram stain. Culture in process. Assessment: 65-year-old male with history of CVA, quadriparesis, dysphagia, PEG in place, ESRD on hemodialysis, hypertension, stage IV sacral decubitus ulcer, bedbound, admitted 01/29/2021 from [facility] secondary to worsening shortness of breath and fever: #Severe sepsis: Present on admission with high fever, tachycardia, tachypnea, leukocytosis, elevated lactate; of unclear etiology. Chest x-ray unremarkable. SARS-CoV-2 PCR negative. Of note, patient was admitted from 01/24/2021-01/27/2021 for same picture with severe fever, elevated lactate without clear source. Blo od cultures were negative. Sacral decubits was clean with granulation tissue. CRP 11. #Stage IV extensive sacral decubitus: During previous admission was found not infected. #ESRD on hemodialysis Recommendations: -f/u CT of chest, abdomen and pelvis -Continue cefepime and vancomycin renally adjusted for now -Wound care consult, sacral offloading Krystle Muñoz MD, FACP [facility] O: [phone] F: [phone] Subjective Date of service: 02/01/21 Principal diagnosis: Sepsis Interval history: Had fever of 101.9 degrees Fahrenheit yesterday evening, low-grade fever today. Leukocytosis has improved. Nonverbal. Objective - Exam Narrative Exam: Physical Exam: Constitutional: Awake but nonverbal Head, Ears, Nose: Normocephalic, atraumatic. External ears, nose normal Eyes: Conjunctivae/corneas clear. No icterus. No ptosis. Neck: Supple, no meningeal signs Cardiovascular: S1, S2 + Respiratory: Good air entry, clear to auscultation bilaterally GI: Soft, non-tender; bowel sounds normal. No peritoneal signs. G-tube present Musculoskeletal: No pedal edema, no cyanosis. Skin: No rash or abscess Hem/Lymphatic: No palpable cervical or supraclavicular nodes. No lymphangitis Psych: No agitation Neurological: Awake, nonverbal, does not follow commands - Constitutional Vitals: Vital Signs Temp Pulse Resp BP Pulse Ox 99.7 F H 111 H 20 125/71 96 02/01/21 04:36 02/01/21 08:41 02/01/21 08:41 02/01/21 04:33 02/01/21 10:00 Temperature -Last 24 Hours Temperature 99.7 F Temperature 100 F Temperature 101.9 F Temperature 99.5 F Temperature 99.6 F Temperature 98.9 F Temperature 99.6 F Temperature 99.6 F Temperature 98.9 F - Labs CBC & Chem 7: 02/01/21 10:10 02/01/21 10:10 Labs: Abnormal lab results 01/30/21 01/31/21 02/01/21 Range/Units 20:59 23:35 00:27 RBC (3.65-5.03) M/mm3 Hgb 8.4 L (11.8-15.2) gm/dl Hct 25.8 L (35.5-45.6) % MCV (84-94) fl MCH (28-32) pg RDW (13.2-15.2) % BUN (9-20) mg/dL Creatinine (0.8-1.3) mg/dL Glucose (75-100) mg/dL POC Glucose 175 H (70-105) mg/dL Crossmatch See Detail 02/01/21 02/01/21 02/01/21 Range/Units 05:17 10:10 10:10 RBC 3.36 L (3.65-5.03) M/mm3 Hgb 8.2 L (11.8-15.2) gm/dl Hct 25.3 L (35.5-45.6) % MCV 75 L (84-94) fl MCH 24 L (28-32) pg RDW 20.2 H (13.2-15.2) % BUN 42 H (9-20) mg/dL Creatinine 3.9 H (0.8-1.3) mg/dL Glucose 200 H (75-100) mg/dL POC Glucose 180 H (70-105) mg/dL Crossmatch 02/01/21 Range/Units 11:56 RBC (3.65-5.03) M/mm3 Hgb (11.8-15.2) gm/dl Hct (35.5-45.6) % MCV (84-94) fl MCH (28-32) pg RDW (13.2-15.2) % BUN (9-20) mg/dL Creatinine (0.8-1.3) mg/dL Glucose (75-100) mg/dL POC Glucose 202 H (70-105) mg/dL Crossmatch
--- NOTE | 2021-02-01 15:06 | Progress Note ---
Assessment and Plan 65-year-old male with history of CVA, quadriparesis, dysphagia, PEG in place, ESRD on hemodialysis, hypertension, stage IV sacral decubitus ulcer, bedbound, [facility] to worsening shortness of breath and fever. Patient is not the best historian to infection. Of note, patient was admitted from 01/24/2021-01/27/2021 for similar picture. On arrival, temperature 101.5, HR 126, RR 32, O2 sat 100, BP 117/66. Initial WBC 13.6. Creatinine 4.6. Platelets 152. D-dimer 2422. Ferritin 735. Procalcitonin 1.9. CRP 11. Lactate 3.3. Creatinine 4.2. SARS-CoV-2 PCR negative. Blood culture 01/29/2021 no growth today. Chest x-ray unremarkable. VQ scan low probability for PE. A/P --Acute hypoxic respiratory failure CXR clear, VQ scan negative for PE and negative for COVID 19 Continue scheduled breathing treatment as needed and supplemental O2 -- Sepsis presented with Fever on admission, elevated leukocytosis. CXR clear, blood cx negative he was treated on previous admission for decubitus ulcer infection Cannot rule out underlying chronic sacral osteomyelitis continue empiric antibiotics for now Consulted ID, ruled out Covid -- Stage IV decubitus ulcer, chronic Ordered for wound care, obtain culture Cannot rule out underlying possible chronic osteomyelitis ID on board -- ESRD needing dialysis Avoid nephrotoxic toxic drug. Nephrology consult, hemodialysis as scheduled Monitor I's and O's Monitor electrolytes on BMP --Elevated troponin likely NSTEMI type II, will trend troponin, will get 2D echocardiogram --Elevated D-dimer, negative for PE in VQ scan -- type 2 diabetes with hyperglycemia Sliding scale insulin, patient on tube feeding Accu-Cheks AC HS --Anemia due to chronic kidney disease monitor the patient closely. repeat CBC in the morning Follow recommendations of nephrology. --History of Hepatitis C Follow LFT Outpatient follow-up --History of CVA with hemiparesis and dysphagia Supportive care, continue tube feeding, PT OT -- DVT prophylaxis Heparin 5000 units subcu every 8 hours for DVT prophylaxis. Pepcid 20 mg with PEG every 24 hours for GI prophylaxis. Daily clinical course: 01/30/21: Continue hemodialysis per nephrology, Covid test is negative, VQ scan is negative for PE. Preliminary blood culture is negative. ID consulted for antibiotic recommendation. We will continue wound care, will follow fever curve. Continue tube feeding. Continue supportive care.. Requested wound consult. 01/31/21: wait for wound cx, wound eval. cont abx, TF diet. Supplemental O2 and breathing treatment as needed. ID recommended CT abdo/pelvis -pending 02/01/21; pending wound care eval. consulted GS. cont iv abx and HD per schedule. Discussed with patient's sister by phone. patient has been declining since beginning of this year since being in the prison. discussed poor prognosis of the patient with recurrent chance of reinfection and possible chronic osteomylitis. Sister wished to proceed with hospice. CM consulted. ID recommended CT abdo/pelvis -pending Subjective Date of service: 02/01/21 Principal diagnosis: Sepsis Interval history: Patient seen and examined. Medical records and medication list reviewed. No acute event overnight noted by the RN. Patient resting on bed, Discussed plan of care at bedside with patient's RN. Objective - Exam Narrative Exam: GENERAL: well-developed and malnourished -[place] male lying on bed appeared to be in no discomfort. HEENT: Normocephalic. Atraumatic. No conjunctival congestion or icterus. Patient has moist mucous membranes. NECK: Supple. Trachea midline. CHEST/LUNGS: Clear to auscultated bilaterally, breathing nonlabored. No wheezes crackles or rhonchi. HEART/CARDIOVASCULAR: Regular in rate and rhythm. S1 and S2 positive. ABDOMEN: Abdomen is soft, nontender. Patient has normal bowel sounds. PEG tube in place SKIN: There is no rash. Warm and dry. NEURO: Contracted upper extremities, does not follow any command, oriented x0 MUSCULOSKELETAL: No joint effusion or tenderness. Generalized muscle wasting. Sacral wound +ve EXTRIMITY: No edema, no cyanosis or clubbing. Noted pressure sore PSYCH: Unable to assess - Constitutional Vitals: Vital Signs - 12hr 02/01/21 02/01/21 02/01/21 04:33 04:36 08:41 Temperature 99.7 F H Pulse Rate 111 H Pulse Rate [ 111 H Anterior Bilateral Throughout] Respiratory 18 Rate Respiratory 20 Rate [Anterior Bilateral Throughout] Blood Pressure 125/71 O2 Sat by Pulse 100 100 Oximetry 02/01/21 10:00 Temperature Pulse Rate Pulse Rate [ Anterior Bilateral Throughout] Respiratory Rate Respiratory Rate [Anterior Bilateral Throughout] Blood Pressure O2 Sat by Pulse 96 Oximetry - Labs CBC & Chem 7: 02/01/21 10:10 02/01/21 10:10 Labs: Abnormal lab results 01/30/21 01/31/21 02/01/21 Range/Units 20:59 23:35 00:27 RBC (3.65-5.03) M/mm3 Hgb 8.4 L (11.8-15.2) gm/dl Hct 25.8 L (35.5-45.6) % MCV (84-94) fl MCH (28-32) pg RDW (13.2-15.2) % BUN (9-20) mg/dL Creatinine (0.8-1.3) mg/dL Glucose (75-100) mg/dL POC Glucose 175 H (70-105) mg/dL Crossmatch See Detail 02/01/21 02/01/21 02/01/21 Range/Units 05:17 10:10 10:10 RBC 3.36 L (3.65-5.03) M/mm3 Hgb 8.2 L (11.8-15.2) gm/dl Hct 25.3 L (35.5-45.6) % MCV 75 L (84-94) fl MCH 24 L (28-32) pg RDW 20.2 H (13.2-15.2) % BUN 42 H (9-20) mg/dL Creatinine 3.9 H (0.8-1.3) mg/dL Glucose 200 H (75-100) mg/dL POC Glucose 180 H (70-105) mg/dL Crossmatch 02/01/21 Range/Units 11:56 RBC (3.65-5.03) M/mm3 Hgb (11.8-15.2) gm/dl Hct (35.5-45.6) % MCV (84-94) fl MCH (28-32) pg RDW (13.2-15.2) % BUN (9-20) mg/dL Creatinine (0.8-1.3) mg/dL Glucose (75-100) mg/dL POC Glucose 202 H (70-105) mg/dL Crossmatch HEART Score - HEART Score Troponin: Troponin T 0.412 ng/mL (0.00-0.029) H* 01/30/21 20:59
[2021-02-01] MEDS: CEFEPIME/NS 1 GM/100 ML 1 GM/100 ML BAG IV SCH (16:01)
[2021-02-01] MEDS: D5W/0.9% NACL 1,000 ML IV SCH (16:02)
[2021-02-01] MEDS: ACETAMINOPHEN 325 MG TAB PO PRN (19:17)
[2021-02-02] MEDS: INSULIN LISPRO 100 UNIT/ML SUB-Q SCH ×3 (00:56→14:19)
[2021-02-02] MEDS: IPRATROPIUM/ALBUTEROL SULFATE 3 ML AMPUL.NEB IH SCH ×4 (02:23→21:18)
[2021-02-02] MEDS: HEPARIN 5,000 UNIT/1 ML VIAL SUB-Q SCH ×3 (06:37→21:50)
[2021-02-02] MEDS: FAMOTIDINE 10 MG TAB PO SCH (09:07)
--- NOTE | 2021-02-02 09:14 | Progress Note ---
Assessment and Plan Assessment - End-stage renal disease on hemodialysis - Sepsis --Blood cx: NGTD (January 29) - Stage IV decubitus ulcer - Hypernatremia, mild - Elevated troponin - Anemia of ESRD Recommendations - Continue HD TTS - Monitor labs and volume status daily and assess need for additional dialysis session - Abx per ID - Transfuse for hgb < 7 - Epogen with HD - ESRD diet with 1.4 g/kg per day protein - Renally dose medication for creatinine clearance less than 15 cc/min Subjective Date of service: 02/02/21 Principal diagnosis: Sepsis Interval history: No acute events overnight. Objective - Vital Signs Vital signs: Vital Signs - 12hr 02/01/21 02/01/21 02/02/21 22:00 22:03 08:54 Pulse Rate [ 108 H 119 H Anterior Bilateral Throughout] Respiratory 20 20 Rate [Anterior Bilateral Throughout] O2 Sat by Pulse 96 Oximetry - General Appearance General appearance: well-developed, frail EENT: ATNC Respiratory: Present: Clear to Ascultation Cardiology: regular, S1S2 Integumentary: warm and dry Neurologic: other (nonverbal) Musculoskeletal: other (no edema) - Lab 02/01/21 10:10 02/01/21 10:10 Most recent lab results Calcium 9.6 mg/dL (8.4-10.2) 02/01/21 10:10 Medications & Allergies - Medications Allergies/Adverse Reactions: Allergies No Known Allergies Allergy (Verified 01/22/21 21:44) Home Medications: Home Medications Medication Instructions Recorded Confirmed Last Taken Type Lispro Insulin [HumaLOG] 0 unit SUB-Q Q6HR units 01/27/21 01/29/21 Unknown Rx Sulfamethoxazole/Trimethoprim 1 each PO BID #7 tablet 01/27/21 01/29/21 Unknown Rx [Bactrim DS TAB] Active Medications: Generic Name Dose Route Start Last Admin Trade Name Freq PRN Reason Stop Dose Admin Acetaminophen 650 mg 01/29/21 12:28 02/01/21 19:17 Acetaminophen 325 Mg Tab PO 650 mg Q4H PRN Administration Pain MILD(1-3)/Fever >100.5/STUART Albuterol/Ipratropium 1 ampul 01/29/21 14:00 02/02/21 08:53 Ipratropium/Albuterol Sulfate 3 Ml Ampul.Neb IH 1 ampul Q6HRT GLORIA Administration Lipase/Protease/Amylase 1 each 01/29/21 15:05 Lipase 10,500/Protease 25,000/Amylase 43,750 (Units) Dr Sorto FEEDTUBE PRN PRN For Clogged Feeding Tube Famotidine 10 mg 01/30/21 07:30 02/02/21 09:07 Famotidine 10 Mg Tab PO 10 mg QDAC GLORIA Administration Heparin Sodium (Porcine) 5,000 unit 01/29/21 14:00 02/02/21 06:37 Heparin 5,000 Unit/1 Ml Vial SUB-Q 5,000 unit Q8HR GLORIA Administration Hydralazine HCl 5 mg 01/29/21 12:28 Hydralazine 20 Mg/1 Ml Inj IV Q30MIN PRN Hypertension Cefepime HCl 1 gm in 100 mls @ 200 mls/hr 01/29/21 15:00 02/01/21 16:01 Cefepime/Ns 1 Gm/100 Ml IV 200 mls/hr Q24H GLORIA Administration Protocol Dextrose/Sodium Chloride 1,000 mls @ 42 mls/hr 01/29/21 16:00 02/01/21 16:02 D5ns IV 42 mls/hr DIRECT GLORIA Administration Sodium Chloride 100 mls @ 999 mls/hr 01/30/21 10:00 Nacl 0.9% IV SAROJ PRN Hypotension Insulin Human Lispro 0 unit 01/29/21 18:00 02/02/21 06:57 Insulin Lispro 100 Unit/Ml SUB-Q 2 unit Q6HR GLORIA Administration Protocol Simple Syrup 15 ml 01/29/21 15:05 Simple Syrup 15 Ml FEEDTUBE PRN PRN Hypoglycemia Simple Syrup 30 ml 01/29/21 15:05 Simple Syrup 15 Ml FEEDTUBE PRN PRN Hypoglycemia Sodium Bicarbonate 325 mg 01/29/21 15:05 Sodium Bicarbonate 325 Mg Tab FEEDTUBE PRN PRN For Clogged Feeding Tube
--- NOTE | 2021-02-02 09:34 | Progress Note ---
Assessment and Plan Elevated troponin, nonspecific left ventricular ejection fraction 60 to 65% on echocardiogram ESRD on HD Anemia Sepsis Hypertension Sacral ulcer Prior CVA with dysphagia Conservative cardiac management. Subjective Date of service: 02/02/21 Principal diagnosis: Sepsis Interval history: Patient is awake but non-verbal from prior CVA. Objective Vital Signs Pulse Resp Resp Pulse Ox 02/02/21 08:54 119 H 20 02/01/21 22:03 108 H 02/01/21 22:00 96 02/01/21 20:17 18 02/01/21 14:51 117 H 02/01/21 10:00 96 - Physical Examination General: Cachectic, Other (Noncommunicative) HEENT: Positive: PERRL Neck: Positive: neck supple Cardiac: Positive: Tachycardia - Labs and Meds CBC 02/01/21 Range/Units 10:10 WBC 10.6 (4.5-11.0) K/mm3 RBC 3.36 L (3.65-5.03) M/mm3 Hgb 8.2 L (11.8-15.2) gm/dl Hct 25.3 L (35.5-45.6) % Plt Count 362 (140-440) K/mm3 Comprehensive Metabolic Panel 02/01/21 Range/Units 10:10 Sodium 142 (137-145) mmol/L Potassium 3.7 (3.6-5.0) mmol/L Chloride 103.9 (98-107) mmol/L Carbon Dioxide 22 (22-30) mmol/L BUN 42 H (9-20) mg/dL Creatinine 3.9 H (0.8-1.3) mg/dL Glucose 200 H (75-100) mg/dL Calcium 9.6 (8.4-10.2) mg/dL
--- NOTE | 2021-02-02 11:04 | Consultation ---
History of Present Illness Consult date: 02/02/21 Chief complaint: Sacral wound - History of present illness History of present illness: 65-year-old male with a past medical history of CVA with hemiplegia, bedbound, nonverbal who presented from [facility] for fever and respiratory distress. All the history is obtained from the chart as the patient is nonverbal. Patient is being treated for sepsis and surgery is consulted because patient has a sacral wound. Patient has been febrile. Past History Past Medical History: diabetes, ESRD, hypertension, stroke Past Surgical History: Other (Status post G-tube placement) Social history: other (Patient lives in a halfway, further details unknown) Family history: other (Unknown) Medications and Allergies Allergies Allergy/AdvReac Type Severity Reaction Status Date / Time No Known Allergies Allergy Verified 01/22/21 21:44 Home Medications Medication Instructions Recorded Confirmed Last Taken Type Lispro Insulin [HumaLOG] 0 unit SUB-Q Q6HR units 01/27/21 01/29/21 Unknown Rx Sulfamethoxazole/Trimethoprim 1 each PO BID #7 tablet 01/27/21 01/29/21 Unknown Rx [Bactrim DS TAB] Active Meds: Active Medications Acetaminophen (Acetaminophen 325 Mg Tab) 650 mg PO Q4H PRN PRN Reason: Pain MILD(1-3)/Fever >100.5/STUART Last Admin: 02/01/21 19:17 Dose: 650 mg Documented by: Albuterol/Ipratropium (Ipratropium/Albuterol Sulfate 3 Ml Ampul.Neb) 1 ampul IH Q6HRT [facility] Last Admin: 02/02/21 08:53 Dose: 1 ampul Documented by: Lipase/Protease/Amylase (Lipase 10,500/Protease 25,000/Amylase 43,750 (Units) Dr Sorto) 1 each FEEDTUBE PRN PRN PRN Reason: For Clogged Feeding Tube Famotidine (Famotidine 10 Mg Tab) 10 mg PO QDAC [facility] Last Admin: 02/02/21 09:07 Dose: 10 mg Documented by: Heparin Sodium (Porcine) (Heparin 5,000 Unit/1 Ml Vial) 5,000 unit SUB-Q Q8HR [facility] Last Admin: 02/02/21 06:37 Dose: 5,000 unit Documented by: Hydralazine HCl (Hydralazine 20 Mg/1 Ml Inj) 5 mg IV Q30MIN PRN PRN Reason: Hypertension Cefepime HCl (Cefepime/Ns 1 Gm/100 Ml) 1 gm in 100 mls @ 200 mls/hr IV Q24H GLORIA; Protocol Last Admin: 02/01/21 16:01 Dose: 200 mls/hr Documented by: Dextrose/Sodium Chloride (D5ns) 1,000 mls @ 42 mls/hr IV DIRECT GLORIA Last Admin: 02/01/21 16:02 Dose: 42 mls/hr Documented by: Sodium Chloride (Nacl 0.9%) 100 mls @ 999 mls/hr IV SAROJ PRN PRN Reason: Hypotension Insulin Human Lispro (Insulin Lispro 100 Unit/Ml) 0 unit SUB-Q Q6HR GLORIA; Protocol Last Admin: 02/02/21 06:57 Dose: 2 unit Documented by: Simple Syrup (Simple Syrup 15 Ml) 15 ml FEEDTUBE PRN PRN PRN Reason: Hypoglycemia Simple Syrup (Simple Syrup 15 Ml) 30 ml FEEDTUBE PRN PRN PRN Reason: Hypoglycemia Sodium Bicarbonate (Sodium Bicarbonate 325 Mg Tab) 325 mg FEEDTUBE PRN PRN PRN Reason: For Clogged Feeding Tube Review of Systems ROS unobtainable: due to mental status Exam Vital Signs Pulse 126 H 01/29/21 06:07 Narrative exam: Gen.: Awake, nonverbal. No apparent distress ENT: Trachea midline. No lymphadenopathy. No scleral icterus or conjunctival pallor CV: S1, S2 present Respiratory: No audible wheezes Extremities: Mildly contracted Sacrum: Large stage IV sacral wound with red granulation tissue. No odor or drainage. No erythema or evidence of cellulitis. Packing in place and dressing is clean, dry, intact. Results - Labs 02/01/21 10:10 02/01/21 10:10 Abnormal lab results 02/01/21 02/01/21 02/01/21 Range/Units 10:10 10:10 11:56 RBC 3.36 L (3.65-5.03) M/mm3 Hgb 8.2 L (11.8-15.2) gm/dl Hct 25.3 L (35.5-45.6) % MCV 75 L (84-94) fl MCH 24 L (28-32) pg RDW 20.2 H (13.2-15.2) % Creatinine 3.9 H (0.8-1.3) mg/dL POC Glucose 202 H (70-105) mg/dL 02/01/21 02/02/21 Range/Units 16:41 00:46 RBC (3.65-5.03) M/mm3 Hgb (11.8-15.2) gm/dl Hct (35.5-45.6) % MCV (84-94) fl MCH (28-32) pg RDW (13.2-15.2) % Creatinine (0.8-1.3) mg/dL POC Glucose 175 H 221 H (70-105) mg/dL Diabetes panel 02/01/21 Range/Units 10:10 Creatinine 3.9 H (0.8-1.3) mg/dL Pituitary panel 02/01/21 Range/Units 10:10 Creatinine 3.9 H (0.8-1.3) mg/dL Adrenal panel 02/01/21 Range/Units 10:10 Creatinine 3.9 H (0.8-1.3) mg/dL Assessment and Plan 65-year-old male with 1. sepsis 2. Chronic stage 4 sacral decubitus ulcer. Likely chronic osteomyelitis. Plan: 1. BID wound care - dakins moistened dressing to sacral wound. RN orders placed. 2. No surgical indication for debridement of wound. Overall the wound is clean. As it is chronic, expect wound to be colonized. 3. Offloading - q2 turning and repositioning 4. Optimize nutrition - operations dispatcher on board and TF running 5. Continue abx per ID 6. Continue care per 1' service and consultants Thank you, please call with questions.
[2021-02-02] MEDS ORDERED: SODIUM HYPOCHLORITE, DAKIN'S 1/2 STRENGTH (0.25%) 473 ML TOPICAL SOLN TP PRN (12:00)
--- NOTE | 2021-02-02 13:58 | Progress Note ---
Assessment and Plan 65-year-old male with history of CVA, quadriparesis, dysphagia, PEG in place, ESRD on hemodialysis, hypertension, stage IV sacral decubitus ulcer, bedbound, admitted 01/29/2021 from alf secondary to worsening shortness of breath and fever. Patient is not the best historian to infection. Of note, patient was admitted from 01/24/2021-01/27/2021 for similar picture. On arrival, temperature 101.5, HR 126, RR 32, O2 sat 100, BP 117/66. Initial WBC 13.6. Creatinine 4.6. Platelets 152. D-dimer 2422. Ferritin 735. Procalcitonin 1.9. CRP 11. Lactate 3.3. Creatinine 4.2. SARS-CoV-2 PCR negative. Blood culture 01/29/2021 no growth today. Chest x-ray unremarkable. VQ scan low probability for PE. A/P --Acute hypoxic respiratory failure CXR clear, VQ scan negative for PE and negative for COVID 19 Continue scheduled breathing treatment as needed and supplemental O2 -- Sepsis presented with Fever on admission, elevated leukocytosis. CXR clear, blood cx negative he was treated on previous admission for decubitus ulcer infection Cannot rule out underlying chronic sacral osteomyelitis continue empiric antibiotics for now Consulted ID, ruled out Covid -- Stage IV decubitus ulcer, chronic Ordered for wound care, obtain culture Cannot rule out underlying possible chronic osteomyelitis ID on board -- ESRD needing dialysis Avoid nephrotoxic toxic drug. Nephrology consult, hemodialysis as scheduled Monitor I's and O's Monitor electrolytes on BMP --Elevated troponin likely NSTEMI type II, will trend troponin, will get 2D echocardiogram --Elevated D-dimer, negative for PE in VQ scan -- type 2 diabetes with hyperglycemia Sliding scale insulin, patient on tube feeding Accu-Cheks AC HS --Anemia due to chronic kidney disease monitor the patient closely. repeat CBC in the morning Follow recommendations of nephrology. --History of Hepatitis C Follow LFT Outpatient follow-up --History of CVA with hemiparesis and dysphagia Supportive care, continue tube feeding, PT OT -- DVT prophylaxis Heparin 5000 units subcu every 8 hours for DVT prophylaxis. Pepcid 20 mg with PEG every 24 hours for GI prophylaxis. Daily clinical course: 01/30/21: Continue hemodialysis per nephrology, Covid test is negative, VQ scan is negative for PE. Preliminary blood culture is negative. ID consulted for antibiotic recommendation. We will continue wound care, will follow fever curve. Continue tube feeding. Continue supportive care.. Requested wound consult. 01/31/21: wait for wound cx, wound eval. cont abx, TF diet. Supplemental O2 and breathing treatment as needed. ID recommended CT abdo/pelvis -pending 02/01/21; pending wound care eval. consulted GS. cont iv abx and HD per schedule. Discussed with patient's sister by phone. patient has been declining since beginning of this year since being in the alf. discussed poor prognosis of the patient with recurrent chance of reinfection and possible chronic osteomylitis. Sister wished to proceed with hospice. CM consulted. ID recommended CT abdo/pelvis -pending 02/02/21: No need for surgical intervention per GS. cont wound care, iv abx, CT abdo/pelvis remains pending. CM working on hospice placement. Discussed with daughter at the bedside in details and updated with all clinical details. Also discussed with patient's son by phone. Family wants hospice placement but in a different alf and also want to continue hemodialysis. Subjective Date of service: 02/02/21 Principal diagnosis: Sepsis Interval history: Patient seen and examined. Medical records and medication list reviewed. No acute event overnight noted by the RN. Patient resting on bed, tolerating tube feeding Discussed plan of care at bedside with patient's RN. Objective - Exam Narrative Exam: GENERAL: well-developed and malnourished -[place] male lying on bed appeared to be in no discomfort. HEENT: Normocephalic. Atraumatic. No conjunctival congestion or icterus. Patient has moist mucous membranes. NECK: Supple. Trachea midline. CHEST/LUNGS: Clear to auscultated bilaterally, breathing nonlabored. No wheezes crackles or rhonchi. HEART/CARDIOVASCULAR: Regular in rate and rhythm. S1 and S2 positive. ABDOMEN: Abdomen is soft, nontender. Patient has normal bowel sounds. PEG tube in place SKIN: There is no rash. Warm and dry. NEURO: Contracted upper extremities, does not follow any command, oriented x0 MUSCULOSKELETAL: No joint effusion or tenderness. Generalized muscle wasting. Sacral wound +ve EXTRIMITY: No edema, no cyanosis or clubbing. Noted pressure sore PSYCH: Unable to assess - Constitutional Vitals: Vital Signs - 12hr 02/02/21 02/02/21 02/02/21 08:54 10:40 10:49 Temperature 99.3 F Pulse Rate 115 H 114 H Pulse Rate [ 119 H Anterior Bilateral Throughout] Respiratory 20 Rate Respiratory 20 Rate [Anterior Bilateral Throughout] Blood Pressure 139/70 136/69 O2 Sat by Pulse 99 Oximetry [ Anterior Bilateral Throughout] 02/02/21 02/02/21 02/02/21 11:00 11:15 11:30 Temperature Pulse Rate 118 H 118 H 118 H Pulse Rate [ Anterior Bilateral Throughout] Respiratory Rate Respiratory Rate [Anterior Bilateral Throughout] Blood Pressure 137/68 140/78 139/80 O2 Sat by Pulse Oximetry [ Anterior Bilateral Throughout] 02/02/21 02/02/21 02/02/21 11:45 12:00 12:10 Temperature Pulse Rate 120 H 122 H 118 H Pulse Rate [ Anterior Bilateral Throughout] Respiratory Rate Respiratory Rate [Anterior Bilateral Throughout] Blood Pressure 146/76 135/75 131/71 O2 Sat by Pulse Oximetry [ Anterior Bilateral Throughout] 02/02/21 02/02/21 02/02/21 12:15 12:30 12:45 Temperature Pulse Rate 122 H 126 H 127 H Pulse Rate [ Anterior Bilateral Throughout] Respiratory Rate Respiratory Rate [Anterior Bilateral Throughout] Blood Pressure 137/67 147/65 138/66 O2 Sat by Pulse Oximetry [ Anterior Bilateral Throughout] 02/02/21 02/02/21 02/02/21 13:00 13:15 13:30 Temperature Pulse Rate 129 H 129 H 129 H Pulse Rate [ Anterior Bilateral Throughout] Respiratory Rate Respiratory Rate [Anterior Bilateral Throughout] Blood Pressure 121/67 156/67 144/79 O2 Sat by Pulse Oximetry [ Anterior Bilateral Throughout] 02/02/21 13:45 Temperature Pulse Rate 131 H Pulse Rate [ Anterior Bilateral Throughout] Respiratory Rate Respiratory Rate [Anterior Bilateral Throughout] Blood Pressure 138/72 O2 Sat by Pulse Oximetry [ Anterior Bilateral Throughout] - Labs CBC & Chem 7: 02/01/21 10:10 02/03/21 Unknown Labs: Abnormal lab results 02/01/21 02/02/21 Range/Units 16:41 00:46 POC Glucose 175 H 221 H (70-105) mg/dL HEART Score - HEART Score Troponin: Troponin T 0.412 ng/mL (0.00-0.029) H* 01/30/21 20:59
--- NOTE | 2021-02-02 14:16 | Progress Note ---
Assessment and Plan Cultures: Blood culture 01/29/2021 no growth 01/30/2021 buttock wound culture: Mixed Gram stain. Culture in process. Assessment: 65-year-old male with history of CVA, quadriparesis, dysphagia, PEG in place, ESRD on hemodialysis, hypertension, stage IV sacral decubitus ulcer, bedbound, admitted 01/29/2021 from long-term secondary to worsening shortness of breath and fever: #Severe sepsis: Present on admission with high fever, tachycardia, tachypnea, leukocytosis, elevated lactate; of unclear etiology. Chest x-ray unremarkable. SARS-CoV-2 PCR negative. Of note, patient was admitted from 01/24/2021-01/27/2021 for same picture with severe fever, elevated lactate without clear source. Blood cultures were negative. Sacral decubitus clean with granulation tissue. CRP 11. #Stage IV extensive sacral decubitus: clean with granulation tissue, not infected. #ESRD on hemodialysis Recommendations: -pending CT of chest, abdomen and pelvis, can be canceled if being discharged on hospice -Continue cefepime and vancomycin renally adjusted for now, once discharged to hospice, would discontinue antibiotics Krystle Muñoz MD, FACP [facility] O: [phone] F: [phone] Subjective Date of service: 02/02/21 Principal diagnosis: Sepsis Interval history: Low grade temperature. Nonverbal. Objective - Exam Narrative Exam: Physical Exam: Constitutional: Awake but nonverbal Head, Ears, Nose: Normocephalic, atraumatic. External ears, nose normal Eyes: Conjunctivae/corneas clear. No icterus. No ptosis. Neck: Supple, no meningeal signs Cardiovascular: S1, S2 + Respiratory: Good air entry, clear to auscultation bilaterally GI: Soft, non-tender; bowel sounds normal. No peritoneal signs. G-tube present Musculoskeletal: No pedal edema, no cyanosis. Skin: No rash or abscess Hem/Lymphatic: No palpable cervical or supraclavicular nodes. No lymphangitis Psych: No agitation Neurological: Awake, nonverbal, does not follow commands - Constitutional Vitals: Vital Signs Temp Pulse Resp BP Pulse Ox 99.3 F 131 H 20 137/74 99 02/02/21 10:40 02/02/21 14:00 02/02/21 10:40 02/02/21 14:00 02/02/21 10:40 Temperature -Last 24 Hours Temperature 99.3 F - Labs CBC & Chem 7: 02/01/21 10:10 02/01/21 10:10 Labs: Abnormal lab results 02/01/21 02/02/21 Range/Units 16:41 00:46 POC Glucose 175 H 221 H (70-105) mg/dL
[2021-02-02] MEDS: CEFEPIME/NS 1 GM/100 ML 1 GM/100 ML BAG IV SCH (16:28)
[2021-02-02] MEDS ORDERED: EPOETIN ALFA-EPBX 10,000 UNIT/1 ML VIAL IV PRN (20:10)
[2021-02-02] MEDS: D5W/0.9% NACL 1,000 ML IV SCH (23:42)
[2021-02-03] MEDS: INSULIN LISPRO 100 UNIT/ML SUB-Q SCH ×5 (00:50→18:12)
[2021-02-03] MEDS: IPRATROPIUM/ALBUTEROL SULFATE 3 ML AMPUL.NEB IH SCH ×4 (04:32→20:49)
[2021-02-03] MEDS: HEPARIN 5,000 UNIT/1 ML VIAL SUB-Q SCH ×3 (06:02→22:09)
--- NOTE | 2021-02-03 08:44 | Progress Note ---
Assessment and Plan Elevated troponin, nonspecific left ventricular ejection fraction 60 to 65% on echocardiogram this admission. ESRD on HD Anemia Sepsis Hypertension Sacral ulcer Prior CVA Conservative cardiac management. Subjective Date of service: 02/03/21 Principal diagnosis: Sepsis Interval history: No interval cardiac changes. Objective Vital Signs Temp Pulse Pulse Resp Resp BP Pulse Ox 02/02/21 22:00 96 02/02/21 21:27 100 02/02/21 21:24 110 H 16 02/02/21 21:20 100 02/02/21 21:01 97.6 F 110 H 20 104/67 100 02/02/21 16:27 125 H 100 02/02/21 16:26 98.0 F 125 H 20 115/78 100 02/02/21 14:21 98.9 F 128 H 20 148/73 02/02/21 14:15 128 H 132/69 02/02/21 14:00 131 H 137/74 02/02/21 13:45 131 H 138/72 02/02/21 13:30 129 H 144/79 02/02/21 13:15 129 H 156/67 02/02/21 13:00 129 H 121/67 02/02/21 12:45 127 H 138/66 02/02/21 12:30 126 H 147/65 02/02/21 12:15 122 H 137/67 02/02/21 12:10 118 H 131/71 02/02/21 12:00 122 H 135/75 02/02/21 11:45 120 H 146/76 02/02/21 11:30 118 H 139/80 02/02/21 11:15 118 H 140/78 02/02/21 11:00 118 H 137/68 02/02/21 10:49 114 H 136/69 02/02/21 10:40 99.3 F 115 H 20 139/70 02/02/21 10:00 99 02/02/21 08:54 119 H 20 Pulse Ox 02/02/21 22:00 02/02/21 21:27 02/02/21 21:24 02/02/21 21:20 02/02/21 21:01 02/02/21 16:27 02/02/21 16:26 02/02/21 14:21 99 02/02/21 14:15 02/02/21 14:00 02/02/21 13:45 02/02/21 13:30 02/02/21 13:15 02/02/21 13:00 02/02/21 12:45 02/02/21 12:30 02/02/21 12:15 02/02/21 12:10 02/02/21 12:00 02/02/21 11:45 02/02/21 11:30 02/02/21 11:15 02/02/21 11:00 02/02/21 10:49 02/02/21 10:40 99 02/02/21 10:00 02/02/21 08:54 - Physical Examination General: Cachectic, Other (Noncommunicative) HEENT: Positive: PERRL Neck: Positive: neck supple Cardiac: Positive: Tachycardia Lungs: Positive: Decreased Breath Sounds
[2021-02-03] MEDS: FAMOTIDINE 10 MG TAB PO SCH (08:45)
--- NOTE | 2021-02-03 09:34 | Progress Note ---
Assessment and Plan Assessment - End-stage renal disease on hemodialysis - Sepsis --Blood cx: NGTD (January 29) - Stage IV decubitus ulcer --Wound cx: GNR - Hypernatremia, mild - Elevated troponin - Anemia of ESRD Recommendations - Continue HD TTS - Monitor labs and volume status daily and assess need for additional dialysis session - Abx per ID - Transfuse for hgb < 7 - Epogen with HD - Nepro tubefeeding - Renally dose medication for creatinine clearance less than 15 cc/min - AM labs Subjective Date of service: 02/03/21 Principal diagnosis: Sepsis Interval history: No acute events overnight. Objective - Vital Signs Vital signs: Vital Signs - 12hr 02/02/21 22:00 O2 Sat by Pulse 96 Oximetry - General Appearance General appearance: well-developed, frail EENT: ATNC Respiratory: Present: Clear to Ascultation Cardiology: regular, S1S2 Gastrointestinal: no tenderness, no distended Integumentary: warm and dry Neurologic: other (nonverbal) Musculoskeletal: other (no edema) - Lab 02/01/21 10:10 02/01/21 10:10 Most recent lab results Calcium 9.6 mg/dL (8.4-10.2) 02/01/21 10:10 Medications & Allergies - Medications Allergies/Adverse Reactions: Allergies No Known Allergies Allergy (Verified 01/22/21 21:44) Home Medications: Home Medications Medication Instructions Recorded Confirmed Last Taken Type Lispro Insulin [HumaLOG] 0 unit SUB-Q Q6HR units 01/27/21 01/29/21 Unknown Rx Sulfamethoxazole/Trimethoprim 1 each PO BID #7 tablet 01/27/21 01/29/21 Unknown Rx [Bactrim DS TAB] Active Medications: Generic Name Dose Route Start Last Admin Trade Name Freq PRN Reason Stop Dose Admin Acetaminophen 650 mg 01/29/21 12:28 02/01/21 19:17 Acetaminophen 325 Mg Tab PO 650 mg Q4H PRN Administration Pain MILD(1-3)/Fever >100.5/STUART Albuterol/Ipratropium 1 ampul 01/29/21 14:00 02/03/21 04:32 Ipratropium/Albuterol Sulfate 3 Ml Ampul.Neb IH Not Given Q6HRT GLORIA Lipase/Protease/Amylase 1 each 01/29/21 15:05 Lipase 10,500/Protease 25,000/Amylase 43,750 (Units) Dr Sorto FEEDTUBE PRN PRN For Clogged Feeding Tube Famotidine 10 mg 01/30/21 07:30 02/03/21 08:45 Famotidine 10 Mg Tab PO 10 mg QDAC GLORIA Administration Heparin Sodium (Porcine) 5,000 unit 01/29/21 14:00 02/03/21 06:02 Heparin 5,000 Unit/1 Ml Vial SUB-Q 5,000 unit Q8HR GLORIA Administration Hydralazine HCl 5 mg 01/29/21 12:28 Hydralazine 20 Mg/1 Ml Inj IV Q30MIN PRN Hypertension Cefepime HCl 1 gm in 100 mls @ 200 mls/hr 01/29/21 15:00 02/02/21 18:45 Cefepime/Ns 1 Gm/100 Ml IV Infused Q24H GLORIA Infusion Protocol Dextrose/Sodium Chloride 1,000 mls @ 42 mls/hr 01/29/21 16:00 02/02/21 23:42 D5ns IV 42 mls/hr DIRECT GLORIA Administration Sodium Chloride 100 mls @ 999 mls/hr 01/30/21 10:00 Nacl 0.9% IV SAROJ PRN Hypotension Insulin Human Lispro 0 unit 01/29/21 18:00 02/03/21 08:43 Insulin Lispro 100 Unit/Ml SUB-Q 2 unit Q6HR GLORIA Administration Protocol Simple Syrup 15 ml 01/29/21 15:05 Simple Syrup 15 Ml FEEDTUBE PRN PRN Hypoglycemia Simple Syrup 30 ml 01/29/21 15:05 Simple Syrup 15 Ml FEEDTUBE PRN PRN Hypoglycemia Sodium Bicarbonate 325 mg 01/29/21 15:05 Sodium Bicarbonate 325 Mg Tab FEEDTUBE PRN PRN For Clogged Feeding Tube Sodium Hypochlorite 1 applic 02/02/21 12:00 Sodium Hypochlorite, Dakin's 1/2 Strength (0.25%) 473 Ml Topical Soln TP Q12H PRN Wound Care
[2021-02-03 10:54] LABS: Calcium 9.2 mg/dL (8.4-10.2)
--- NOTE | 2021-02-03 13:27 | Progress Note ---
Assessment and Plan Cultures: Blood culture 01/29/2021 no growth 01/30/2021 buttock wound culture: Mixed Gram stain. GNR x 2 Assessment: 65-year-old male with history of CVA, quadriparesis, dysphagia, PEG in place, ESRD on hemodialysis, hypertension, stage IV sacral decubitus ulcer, bedbound, [facility] secondary to worsening shortness of breath and fever: #Severe sepsis: Present on admission with high fever, tachycardia, tachypnea, leukocytosis, elevated lactate; of unclear etiology. Chest x-ray unremarkable. SARS-CoV-2 PCR negative. Of note, patient was admitted from 01/24/2021-01/27/2021 for same picture with severe fever, elevated lactate without clear source. Blood cultures were negative. Sacral decubitus clean with granulation tissue. CRP 11. #Stage IV extensive sacral decubitus: clean with granulation tissue, not infected. Culture reflects colonization. #ESRD on hemodialysis Recommendations: -pending CT of chest, abdomen and pelvis, can be canceled if being discharged on hospice -Continue cefepime and vancomycin renally adjusted for now, once discharged to hospice, would discontinue antibiotics Krystle Muñoz MD, FACP [facility] O: [phone] F: [phone] Subjective Date of service: 02/03/21 Principal diagnosis: Sepsis Interval history: No fever. Nonverbal. Objective - Exam Narrative Exam: Physical Exam: Constitutional: Awake but nonverbal Head, Ears, Nose: Normocephalic, atraumatic. External ears, nose normal Eyes: Conjunctivae/corneas clear. No icterus. No ptosis. Neck: Supple, no meningeal signs Cardiovascular: S1, S2 + Respiratory: Good air entry, clear to auscultation bilaterally GI: Soft, non-tender; bowel sounds normal. No peritoneal signs. G-tube present Musculoskeletal: No pedal edema, no cyanosis. Skin: No rash or abscess Hem/Lymphatic: No palpable cervical or supraclavicular nodes. No lymphangitis Psych: No agitation Neurological: Awake, nonverbal, does not follow commands - Constitutional Vitals: Vital Signs Temp Pulse Resp BP Pulse Ox 97.6 F 106 H 20 104/67 100 02/02/21 21:01 02/03/21 10:07 02/03/21 10:07 02/02/21 21:01 02/03/21 10:00 Temperature -Last 24 Hours Temperature 97.6 F Temperature 98.0 F Temperature 98.9 F - Labs CBC & Chem 7: 02/01/21 10:10 02/03/21 Unknown Labs: Abnormal lab results 02/03/21 02/03/21 02/03/21 Range/Units 06:03 12:44 Unknown BUN 24 H (9-20) mg/dL Creatinine 2.5 H (0.8-1.3) mg/dL Glucose 184 H (75-100) mg/dL POC Glucose 221 H 154 H (70-105) mg/dL
--- NOTE | 2021-02-03 16:29 | Progress Note ---
Assessment and Plan 65-year-old male with history of CVA, quadriparesis, dysphagia, PEG in place, ESRD on hemodialysis, hypertension, stage IV sacral decubitus ulcer, bedbound, [facility] to worsening shortness of breath and fever. Patient is not the best historian to infection. Of note, patient was admitted from 01/24/2021-01/27/2021 for similar picture. On arrival, temperature 101.5, HR 126, RR 32, O2 sat 100, BP 117/66. Initial WBC 13.6. Creatinine 4.6. Platelets 152. D-dimer 2422. Ferritin 735. Procalcitonin 1.9. CRP 11. Lactate 3.3. Creatinine 4.2. SARS-CoV-2 PCR negative. Blood culture 01/29/2021 no growth today. Chest x-ray unremarkable. VQ scan low probability for PE. A/P --Acute hypoxic respiratory failure CXR clear, VQ scan negative for PE and negative for COVID 19 Continue scheduled breathing treatment as needed and supplemental O2 -- Sepsis presented with Fever on admission, elevated leukocytosis. CXR clear, blood cx negative he was treated on previous admission for decubitus ulcer infection Cannot rule out underlying chronic sacral osteomyelitis continue empiric antibiotics for now Consulted ID, ruled out Covid -- Stage IV decubitus ulcer, chronic Ordered for wound care, obtain culture Cannot rule out underlying possible chronic osteomyelitis ID on board -- ESRD needing dialysis Avoid nephrotoxic toxic drug. Nephrology consult, hemodialysis as scheduled Monitor I's and O's Monitor electrolytes on BMP --Elevated troponin likely NSTEMI type II, will trend troponin, will get 2D echocardiogram --Elevated D-dimer, negative for PE in VQ scan -- type 2 diabetes with hyperglycemia Sliding scale insulin, patient on tube feeding Accu-Cheks AC HS --Anemia due to chronic kidney disease monitor the patient closely. repeat CBC in the morning Follow recommendations of nephrology. --History of Hepatitis C Follow LFT Outpatient follow-up --History of CVA with hemiparesis and dysphagia Supportive care, continue tube feeding, PT OT -- DVT prophylaxis Heparin 5000 units subcu every 8 hours for DVT prophylaxis. Pepcid 20 mg with PEG every 24 hours for GI prophylaxis. Daily clinical course: 01/30/21: Continue hemodialysis per nephrology, Covid test is negative, VQ scan is negative for PE. Preliminary blood culture is negative. ID consulted for antibiotic recommendation. We will continue wound care, will follow fever curve. Continue tube feeding. Continue supportive care.. Requested wound consult. 01/31/21: wait for wound cx, wound eval. cont abx, TF diet. Supplemental O2 and breathing treatment as needed. ID recommended CT abdo/pelvis -pending 02/01/21; pending wound care eval. consulted GS. cont iv abx and HD per schedule. Discussed with patient's sister by phone. patient has been declining since beginning of this year since being in the jail. discussed poor prognosis of the patient with recurrent chance of reinfection and possible chronic osteomylitis. Sister wished to proceed with hospice. CM consulted. ID recommended CT abdo/pelvis -pending 02/02/21: No need for surgical intervention per GS. cont wound care, iv abx, CT abdo/pelvis remains pending. CM working on hospice placement. Discussed with daughter at the bedside in details and updated with all clinical details. Also discussed with patient's son by phone. Family wants hospice placement but in a different jail and also want to continue hemodialysis. 02/03/21: Patient on TF: tolerating, vitals stable. pending wound care recommendation. cont iv abx for now till discharge. Family wants hospice but wants to continue HD. Family also want different SNF with hospice and refusing to send patient to his current jail. will cont to follow. Subjective Date of service: 02/03/21 Principal diagnosis: Sepsis Interval history: Patient seen and examined. Medical records and medication list reviewed. No acute event overnight noted by the RN. Patient resting on bed, tolerating tube feeding Discussed plan of care at bedside with patient's RN. Objective - Exam Narrative Exam: GENERAL: well-developed and malnourished -Emirati male lying on bed appeared to be in no discomfort. HEENT: Normocephalic. Atraumatic. No conjunctival congestion or icterus. Patient has moist mucous membranes. NECK: Supple. Trachea midline. CHEST/LUNGS: Clear to auscultated bilaterally, breathing nonlabored. No wheezes crackles or rhonchi. HEART/CARDIOVASCULAR: Regular in rate and rhythm. S1 and S2 positive. ABDOMEN: Abdomen is soft, nontender. Patient has normal bowel sounds. PEG tube in place SKIN: There is no rash. Warm and dry. NEURO: Contracted upper extremities, does not follow any command, oriented x0 MUSCULOSKELETAL: No joint effusion or tenderness. Generalized muscle wasting. Sacral wound +ve EXTRIMITY: No edema, no cyanosis or clubbing. Noted pressure sore PSYCH: Unable to assess - Constitutional Vitals: Vital Signs - 12hr 02/03/21 02/03/21 02/03/21 10:00 10:07 16:18 Pulse Rate [ 106 H 108 H Anterior Bilateral Throughout] Respiratory 20 16 Rate [Anterior Bilateral Throughout] O2 Sat by Pulse 100 Oximetry - Labs CBC & Chem 7: 02/01/21 10:10 02/03/21 Unknown Labs: Abnormal lab results 02/03/21 02/03/21 02/03/21 Range/Units 06:03 12:44 15:47 BUN (9-20) mg/dL Creatinine (0.8-1.3) mg/dL Glucose (75-100) mg/dL POC Glucose 221 H 154 H 167 H (70-105) mg/dL 02/03/21 Range/Units Unknown BUN 24 H (9-20) mg/dL Creatinine 2.5 H (0.8-1.3) mg/dL Glucose 184 H (75-100) mg/dL POC Glucose (70-105) mg/dL HEART Score - HEART Score Troponin: Troponin T 0.412 ng/mL (0.00-0.029) H* 01/30/21 20:59
[2021-02-03] MEDS: CEFEPIME/NS 1 GM/100 ML 1 GM/100 ML BAG IV SCH (18:11)
[2021-02-03] MEDS: D5W/0.9% NACL 1,000 ML IV SCH (22:11)
[2021-02-04] MEDS: INSULIN LISPRO 100 UNIT/ML SUB-Q SCH ×4 (00:30→18:14)
[2021-02-04] MEDS: IPRATROPIUM/ALBUTEROL SULFATE 3 ML AMPUL.NEB IH SCH ×4 (04:43→21:01)
[2021-02-04 06:11] LABS: Hematocrit 22.7 % (35.5-45.6); Hemoglobin 7.4 gm/dl (11.8-15.2); Mean Corpuscular HGB Conc 33 % (32-34); Mean Corpuscular Volume 75 fl (84-94); Platelet Count 342 K/mm3 (140-440); Red Blood Count 3.02 M/mm3 (3.65-5.03)
[2021-02-04 06:12] LABS: Red Cell Distribution Width 20.8 % (13.2-15.2)
[2021-02-04] MEDS: HEPARIN 5,000 UNIT/1 ML VIAL SUB-Q SCH ×3 (06:31→21:25)
[2021-02-04 06:32] LABS: Calcium 9.4 mg/dL (8.4-10.2)
[2021-02-04] MEDS: FAMOTIDINE 10 MG TAB PO SCH (08:00)
--- NOTE | 2021-02-04 08:01 | Progress Note ---
Assessment and Plan Assessment - End-stage renal disease on hemodialysis - Sepsis --Blood cx: NGTD (January 29) - Stage IV decubitus ulcer --Wound cx: GNR - Hypernatremia, mild - Elevated troponin - Anemia of ESRD Recommendations - Continue HD TTS - Monitor labs and volume status daily and assess need for additional dialysis session - Abx per ID - Cefepime - Transfuse for hgb < 7 - Epogen with HD - receiving 10k - Nepro tubefeeding - Renally dose medication for creatinine clearance less than 15 cc/min Subjective Date of service: 02/04/21 Principal diagnosis: Sepsis Interval history: 24h hour events reviewed Objective - Vital Signs Vital signs: Vital Signs - 12hr 02/03/21 02/03/21 02/03/21 20:54 22:00 23:43 Temperature 98.4 F Pulse Rate 67 Respiratory 20 22 Rate Blood Pressure 130/75 O2 Sat by Pulse 100 100 100 Oximetry - General Appearance General appearance: well-developed, frail EENT: ATNC Respiratory: Present: Clear to Ascultation Cardiology: regular, S1S2 Gastrointestinal: no tenderness, no distended Integumentary: warm and dry Neurologic: other (nonverbal) - Lab 02/04/21 05:59 02/04/21 05:59 Most recent lab results Calcium 9.4 mg/dL (8.4-10.2) 02/04/21 05:59 Medications & Allergies - Medications Allergies/Adverse Reactions: Allergies No Known Allergies Allergy (Verified 01/22/21 21:44) Home Medications: Home Medications Medication Instructions Recorded Confirmed Last Taken Type Lispro Insulin [HumaLOG] 0 unit SUB-Q Q6HR units 01/27/21 01/29/21 Unknown Rx Sulfamethoxazole/Trimethoprim 1 each PO BID #7 tablet 01/27/21 01/29/21 Unknown Rx [Bactrim DS TAB] Active Medications: Generic Name Dose Route Start Last Admin Trade Name Freq PRN Reason Stop Dose Admin Acetaminophen 650 mg 01/29/21 12:28 02/01/21 19:17 Acetaminophen 325 Mg Tab PO 650 mg Q4H PRN Administration Pain MILD(1-3)/Fever >100.5/STUART Albuterol/Ipratropium 1 ampul 01/29/21 14:00 02/04/21 04:43 Ipratropium/Albuterol Sulfate 3 Ml Ampul.Neb IH Not Given Q6HRT GLORIA Lipase/Protease/Amylase 1 each 01/29/21 15:05 Lipase 10,500/Protease 25,000/Amylase 43,750 (Units) Dr Sorto FEEDTUBE PRN PRN For Clogged Feeding Tube Famotidine 10 mg 01/30/21 07:30 02/03/21 08:45 Famotidine 10 Mg Tab PO 10 mg QDAC GLORIA Administration Heparin Sodium (Porcine) 5,000 unit 01/29/21 14:00 02/04/21 06:31 Heparin 5,000 Unit/1 Ml Vial SUB-Q 5,000 unit Q8HR GLORIA Administration Hydralazine HCl 5 mg 01/29/21 12:28 Hydralazine 20 Mg/1 Ml Inj IV Q30MIN PRN Hypertension Cefepime HCl 1 gm in 100 mls @ 200 mls/hr 01/29/21 15:00 02/03/21 18:11 Cefepime/Ns 1 Gm/100 Ml IV 200 mls/hr Q24H GLORIA Administration Protocol Sodium Chloride 100 mls @ 999 mls/hr 01/30/21 10:00 Nacl 0.9% IV SAROJ PRN Hypotension Insulin Human Lispro 0 unit 01/29/21 18:00 02/04/21 06:37 Insulin Lispro 100 Unit/Ml SUB-Q 2 unit Q6HR GLORIA Administration Protocol Simple Syrup 15 ml 01/29/21 15:05 Simple Syrup 15 Ml FEEDTUBE PRN PRN Hypoglycemia Simple Syrup 30 ml 01/29/21 15:05 Simple Syrup 15 Ml FEEDTUBE PRN PRN Hypoglycemia Sodium Bicarbonate 325 mg 01/29/21 15:05 Sodium Bicarbonate 325 Mg Tab FEEDTUBE PRN PRN For Clogged Feeding Tube Sodium Hypochlorite 1 applic 02/02/21 12:00 Sodium Hypochlorite, Dakin's 1/2 Strength (0.25%) 473 Ml Topical Soln TP Q12H PRN Wound Care
--- NOTE | 2021-02-04 09:16 | Progress Note ---
Assessment and Plan Elevated troponin, nonspecific left ventricular ejection fraction 60 to 65% on echocardiogram this admission. ESRD on HD Anemia Sepsis Hypertension Sacral ulcer Prior CVA Conservative cardiac management. Subjective Date of service: 02/04/21 Principal diagnosis: Sepsis Interval history: No interval cardiac changes. Objective Vital Signs Temp Pulse Pulse Resp Resp BP Pulse Ox 02/04/21 08:41 100 02/04/21 08:39 110 H 18 02/03/21 23:43 98.4 F 67 22 130/75 100 02/03/21 22:00 20 100 02/03/21 20:54 100 02/03/21 20:00 114 H 16 02/03/21 16:18 108 H 16 02/03/21 10:07 106 H 20 02/03/21 10:00 96 - Physical Examination General: Cachectic, Other (Noncommunicative) HEENT: Positive: PERRL Neck: Positive: neck supple Cardiac: Positive: Tachycardia Lungs: Positive: Decreased Breath Sounds - Labs and Meds CBC 02/04/21 Range/Units 05:59 WBC 9.9 (4.5-11.0) K/mm3 RBC 3.02 L (3.65-5.03) M/mm3 Hgb 7.4 L (11.8-15.2) gm/dl Hct 22.7 L (35.5-45.6) % Plt Count 342 (140-440) K/mm3 Comprehensive Metabolic Panel 02/03/21 02/04/21 Range/Units Unknown 05:59 Sodium 138 139 (137-145) mmol/L Potassium 4.0 4.7 (3.6-5.0) mmol/L Chloride 98.9 100.9 (98-107) mmol/L Carbon Dioxide 26 25 (22-30) mmol/L BUN 24 H 34 H (9-20) mg/dL Creatinine 2.5 H 3.4 H (0.8-1.3) mg/dL Glucose 184 H 192 H (75-100) mg/dL Calcium 9.2 9.4 (8.4-10.2) mg/dL
[2021-02-04 10:34] LABS: Anisocytosis 1+; Band Neutrophils # (Manual) 1.5 K/mm3; Hypochromasia 2+; Myelocytes # (Manual) 0.2 K/mm3; Tear Drop Cells Rare; Total Cells Counted 100
[2021-02-04 10:35] LABS: Platelet Clumps Rare; Platelet Estimate Consistent w Auto
--- NOTE | 2021-02-04 11:07 | Cat Scan Report ---
CT CHEST WITH CONTRAST INDICATION / CLINICAL INFORMATION: severe sepsis unclear source [id number] 100ML. TECHNIQUE: Axial CT images were obtained through the chest after 100 cc IV contrast. Sagittal and coronal reform atted images. All CT scans at this location are performed using CT dose reduction for ALARA by means of automated exposure control. COMPARISON: None available. FINDINGS: HEART: Mild cardiomegaly. No pericardial effusion. THORACIC AORTA: Mild atherosclerotic calcification without acute abnormality. MEDIASTINUM and ANGELO: No significant abnormality. A right IJ venous catheter terminates in the lower SVC. LUNGS: No acute air space or interstitial disease. Minor linear atelectasis or scarring in the lower lobes is noted. PLEURA: No significant pleural effusion. No pneumothorax. SKELETAL SYSTEM: No significant abnormality. Additional findings: There are a few slightly enlarged lymph nodes in the lower anterior mediastinum near the cardio phrenic junction measuring up to 1.3 cm. IMPRESSION: Mild cardiomegaly. Lungs generally clear. No acute process is noted in the chest. CT ABDOMEN AND PELVIS WITH CONTRAST INDICATION / CLINICAL INFORMATION: severe sepsis unclear source [id number] 100ML. TECHNIQUE: Axial CT images were obtained through the abdomen and pelvis after 100cc IV contrast. Sagittal and co casa reformatted images. All CT scans at this location are performed using CT dose reduction for ALA RA by means of automated exposure control. COMPARISON: None available. FINDINGS: LIVER: No significant abnormality. GALLBLADDER: Few tiny gallstones are identified. No dilatation or inflammatory changes. BILE DUCTS: No significant abnormality. PANCREAS: No significant abnormality. SPLEEN: No significant abnormality. ADRENALS: 1 cm intermediate density right adrenal nodule is identified. This may represent an adenoma . The left adrenal gland is normal. RIGHT KIDNEY and URETER: Few small simple right renal cysts. Otherwise no abnormality. LEFT KIDNEY and URETER: No significant abnormality. STOMACH and SMALL BOWEL: A PEG tube is in position. No evidence for obstruction or inflammation. COLON: No significant abnormality. APPENDIX: Believe I see the appendix in the right lower quadrant. No evidence for acute appendicitis. PERITONEUM: There is small perisplenic ascites. There is suggestion of scattered tiny peritoneal nodu les measuring 2-3 mm each. This is most pronounced in the left lateral abdomen. This is concerning fo r peritoneal carcinomatosis. No free air. No fluid collection. LYMPH NODES: There are a few slightly prominent antonietta hepatis and celiac axis lymph nodes. The larges t lymph node in the celiac axis measures 1.3 cm. AORTA and ARTERIES: No significant abnormality. IVC and VEINS: No significant abnormality. URINARY BLADDER: No significant abnormality. REPRODUCTIVE ORGANS: No significant abnormality. ADDITIONAL FINDINGS: None. SKELETAL SYSTEM: There is a large sacral decubitus or sooner measuring up to 13 cm in diameter which extends to bone. Bony destruction of the lower sacrum is identified concerning for osteomyelitis and no associated abscess is appreciated. IMPRESSION: Large sacral decubitus ulcer with findings suggestive of sacral osteomyelitis as described. No assoc iated abscess is appreciated. This could be further evaluated with MRI if needed. No acute inflammatory process is identified within the peritoneal cavity. Cholelithiasis. Small ascites. Right renal cysts. Very subtle scattered peritoneal nodules are suggested as described. This is worrisome for early anjel toneal carcinomatosis. This patient has a previous history of cancer No visceral mass is identified. Borderline to mildly enlarged lymph nodes in the antonietta hepatis and celiac axis chain. Signer Name: Jose A Castro Jr, MD Signed: 02/04/2021 11:02 AM Workstation Name: [id number]
--- NOTE | 2021-02-04 12:58 | Progress Note ---
Assessment and Plan Cultures: Blood culture 01/29/2021 no growth 01/30/2021 buttock wound culture: Mixed Gram stain. GNR x 2 Assessment: 65-year-old male with history of CVA, quadriparesis, dysphagia, PEG in place, ESRD on hemodialysis, hypertension, stage IV sacral decubitus ulcer, bedbound, admitted 01/29/2021 from [facility] secondary to worsening shortness of breath and fever: #Severe sepsis: Present on admission with high fever, tachycardia, tachypnea, leukocytosis, elevated lactate; of unclear etiology. Chest x-ray unremarkable. SARS-CoV-2 PCR negative. Of note, patient was admitted from 01/24/2021-01/27/2021 for same picture with severe fever, elevated lactate without clear source. Blood cultures were negative. Sacral decubitus clean with granulation tissue. CRP 11. CT scan chest abdomen and pelvis with no pneumonia, abdominal findings of scattered peritoneal nodules suggestive of possible peritoneal carcinomatosis and also findings of mildly enlarged lymph nodes in the antonietta hepatis and celiac axis chain. #Stage IV extensive sacral decubitus: clean with granulation tissue, not infected. Culture reflects colonization. #ESRD on hemodialysis Recommendations: -CT findings noted. Also awaiting discharge to SNF on hospice -Continue cefepime and vancomycin renally adjusted for now, once discharged to hospice, would discontinue antibiotics ID will sign off. Please call with questions. Krystle Muñoz MD, FACP [facility] ([facility] O: [phone] F: [phone] Subjective Date of service: 02/04/21 Principal diagnosis: Sepsis Interval history: No fever. Nonverbal. Objective - Exam Narrative Exam: Physical Exam: Constitutional: Awake but nonverbal Head, Ears, Nose: Normocephalic, atraumatic. External ears, nose normal Eyes: Conjunctivae/corneas clear. No icterus. No ptosis. Neck: Supple, no meningeal signs Cardiovascular: S1, S2 + Respiratory: Good air entry, clear to auscultation bilaterally GI: Soft, non-tender; bowel sounds normal. No peritoneal signs. G-tube present Musculoskeletal: No pedal edema, no cyanosis. Skin: No rash or abscess Hem/Lymphatic: No palpable cervical or supraclavicular nodes. No lymphangitis Psych: No agitation Neurological: Awake, nonverbal, does not follow commands - Constitutional Vitals: Vital Signs Temp Pulse Resp BP Pulse Ox 98.4 F 110 H 18 130/75 100 02/03/21 23:43 02/04/21 08:39 02/04/21 08:39 02/03/21 23:43 02/04/21 08:41 Temperature -Last 24 Hours Temperature 98.4 F - Labs CBC & Chem 7: 02/04/21 05:59 02/04/21 05:59 Labs: Abnormal lab results 02/03/21 02/04/21 02/04/21 Range/Units 15:47 00:48 05:59 RBC (3.65-5.03) M/mm3 Hgb (11.8-15.2) gm/dl Hct (35.5-45.6) % MCV (84-94) fl MCH (28-32) pg RDW (13.2-15.2) % Seg Neuts % (Manual) (40.0-70.0) % Lymphocytes % (Manual) (13.4-35.0) % Nucleated RBC % (0.0-0.9) % Lymphocytes # (Manual) (1.2-5.4) K/mm3 BUN 34 H (9-20) mg/dL Creatinine 3.4 H (0.8-1.3) mg/dL Glucose 192 H (75-100) mg/dL POC Glucose 167 H 190 H (70-105) mg/dL 02/04/21 02/04/21 Range/Units 05:59 06:33 RBC 3.02 L (3.65-5.03) M/mm3 Hgb 7.4 L (11.8-15.2) gm/dl Hct 22.7 L (35.5-45.6) % MCV 75 L (84-94) fl MCH 25 L (28-32) pg RDW 20.8 H (13.2-15.2) % Seg Neuts % (Manual) 71.0 H (40.0-70.0) % Lymphocytes % (Manual) 7.0 L (13.4-35.0) % Nucleated RBC % 1.0 H (0.0-0.9) % Lymphocytes # (Manual) 0.7 L (1.2-5.4) K/mm3 BUN (9-20) mg/dL Creatinine (0.8-1.3) mg/dL Glucose (75-100) mg/dL POC Glucose 202 H (70-105) mg/dL
--- NOTE | 2021-02-04 14:42 | Progress Note ---
Assessment and Plan --Acute hypoxic respiratory failure CXR clear, VQ scan negative for PE and negative for COVID 19 Continue scheduled breathing treatment as needed and supplemental O2 Await hospice skilled nursing transfer. -- Sepsis presented with Fever on admission, elevated leukocytosis. CXR clear, blood cx negative he was treated on previous admission for decubitus ulcer infection Sacral decubitus clean with granulation tissue. continue empiric antibiotics cefepime and vancomycin Consulted ID, ruled out Covid Agree with hospice services. -- Stage IV decubitus ulcer, chronic Ordered for wound care, obtain culture Cannot rule out underlying possible chronic osteomyelitis ID on board -- ESRD needing dialysis Avoid nephrotoxic toxic drug. Nephrology consult, hemodialysis as scheduled Monitor I's and O's Monitor electrolytes on BMP --Elevated troponin likely NSTEMI type II, will trend troponin, will get 2D echocardiogram --Elevated D-dimer, negative for PE in VQ scan -- type 2 diabetes with hyperglycemia Sliding scale insulin, patient on tube feeding Accu-Cheks AC HS --Anemia due to chronic kidney disease monitor the patient closely. repeat CBC in the morning Follow recommendations of nephrology. --History of Hepatitis C Follow LFT Outpatient follow-up Not really a candidate for treatment. We will follow up LFTs. --History of CVA with hemiparesis and dysphagia Subjective Date of service: 02/04/21 Principal diagnosis: Sepsis Interval history: 65-year-old male with history of CVA, quadriparesis, dysphagia, PEG in place, ESRD on hemodialysis, hypertension, stage IV sacral decubitus ulcer, bedbound, admitted 01/29/2021 from skilled nursing secondary to worsening shortness of breath and fever. Patient is not the best historian to infection. Of note, patient was admitted from 01/24/2021-01/27/2021 for similar picture. On arrival, tem perature 101.5, HR 126, RR 32, O2 sat 100, BP 117/66. Initial WBC 13.6. Creatinine 4.6. Platelets 152. D-dimer 2422. Ferritin 735. Procalcitonin 1.9. CRP 11. Lactate 3.3. Creatinine 4.2. SARS-CoV-2 PCR negative. Blood culture 01/29/2021 no growth today. Chest x-ray unremarkable. VQ scan low probability for PE. Daily clinical course: 01/30/21: Continue hemodialysis per nephrology, Covid test is negative, VQ scan is negative for PE. Preliminary blood culture is negative. ID consulted for antibiotic recommendation. We will continue wound care, will follow fever curve. Continue tube feeding. Continue supportive care.. Requested wound consult. 01/31/21: wait for wound cx, wound eval. cont abx, TF diet. Supplemental O2 and breathing treatment as needed. ID recommended CT abdo/pelvis -pending 02/01/21; pending wound care eval. consulted GS. cont iv abx and HD per schedule. Discussed with patient's sister by phone. patient has been declining since be ginning of this year since being in the skilled nursing. discussed poor prognosis of the patient with recurrent chance of reinfection and possible chronic osteomylitis. Sister wished to proceed with hospice. CM consulted. ID recommended CT abdo/pelvis -pending 02/02/21: No need for surgical intervention per GS. cont wound care, iv abx, CT abdo/pelvis remains pending. CM working on hospice placement. Discussed with daughter at the bedside in details and updated with all clinical details. Also discussed with patient's son by phone. Family wants hospice placement but in a different skilled nursing and also want to continue hemodialysis. 02/03/21: Patient on TF: tolerating, vitals stable. pending wound care recommendation. cont iv abx for now till discharge. Family wants hospice but wants to continue HD. Family also want different SNF with hospice and refusing to send patient to his current skilled nursing. will cont to follow. 02/04/2021. No new events over p.m. Patient nonverbal not following any commands at this time. Currently on IV antibiotics. Did speak with hospice difficulty is hospice with prolonged hemodialysis. Objective - Constitutional Vitals: Vital Signs - 12hr 02/04/21 02/04/21 08:39 08:41 Pulse Rate [ 110 H Anterior Bilateral Throughout] Respiratory 18 Rate [Anterior Bilateral Throughout] O2 Sat by Pulse 100 Oximetry General appearance: Present: well-nourished, cachectic - EENT Eyes: PERRL, EOM intact - Respiratory Respiratory: bilateral: CTA - Cardiovascular Rhythm: regular Extremity abnormal: other (Contracted deconditioned atrophy with sacral decubitus.) - Gastrointestinal General gastrointestinal: Present: other (Feeding tube intact. No tenderness or pain to area. Slightly distended.) - Musculoskeletal Musculoskeletal: generalized weakness - Neurologic Neurologic: focal deficits - Labs CBC & Chem 7: 02/04/21 05:59 02/04/21 05:59 Labs: Abnormal lab results 02/03/21 02/04/21 02/04/21 Range/Units 15:47 00:48 05:59 RBC (3.65-5.03) M/mm3 Hgb (11.8-15.2) gm/dl Hct (35.5-45.6) % MCV (84-94) fl MCH (28-32) pg RDW (13.2-15.2) % Seg Neuts % (Manual) (40.0-70.0) % Lymphocytes % (Manual) (13.4-35.0) % Nucleated RBC % (0.0-0.9) % Lymphocytes # (Manual) (1.2-5.4) K/mm3 BUN 34 H (9-20) mg/dL Creatinine 3.4 H (0.8-1.3) mg/dL Glucose 192 H (75-100) mg/dL POC Glucose 167 H 190 H (70-105) mg/dL 02/04/21 02/04/21 Range/Units 05:59 06:33 RBC 3.02 L (3.65-5.03) M/mm3 Hgb 7.4 L (11.8-15.2) gm/dl Hct 22.7 L (35.5-45.6) % MCV 75 L (84-94) fl MCH 25 L (28-32) pg RDW 20.8 H (13.2-15.2) % Seg Neuts % (Manual) 71.0 H (40.0-70.0) % Lymphocytes % (Manual) 7.0 L (13.4-35.0) % Nucleated RBC % 1.0 H (0.0-0.9) % Lymphocytes # (Manual) 0.7 L (1.2-5.4) K/mm3 BUN (9-20) mg/dL Creatinine (0.8-1.3) mg/dL Glucose (75-100) mg/dL POC Glucose 202 H (70-105) mg/dL HEART Score - HEART Score Troponin: Troponin T 0.412 ng/mL (0.00-0.029) H* 07/24/21 20:59
[2021-02-04] MEDS: CEFEPIME/NS 1 GM/100 ML 1 GM/100 ML BAG IV SCH (15:41)
[2021-02-04] MEDS ORDERED: VANCOMYCIN/NS 1 GM/250 ML 1 GM/250 ML BAG IV ONE (20:00)
[2021-02-04] MEDS: ACETAMINOPHEN 325 MG TAB PO PRN (23:17)
[2021-02-05] MEDS: INSULIN LISPRO 100 UNIT/ML SUB-Q SCH ×4 (01:22→13:11)
[2021-02-05] MEDS: HEPARIN 5,000 UNIT/1 ML VIAL SUB-Q SCH ×2 (06:09→13:10)
[2021-02-05] MEDS: IPRATROPIUM/ALBUTEROL SULFATE 3 ML AMPUL.NEB IH SCH ×3 (07:07→13:22)
--- NOTE | 2021-02-05 07:59 | Progress Note ---
Assessment and Plan Assessment - End-stage renal disease on hemodialysis - Sepsis --Blood cx: NGTD (January 29) - Stage IV decubitus ulcer --Wound cx: GNR - Hypernatremia, mild - Elevated troponin - Anemia of ESRD Recommendations - Continue HD TTS - Monitor labs and volume status daily and assess need for additional dialysis session - Abx per ID - Cefepime - Transfuse for hgb < 7 - Epogen with HD - receiving 10k - Nepro tubefeeding - Renally dose medication for creatinine clearance less than 15 cc/min Subjective Date of service: 02/05/21 Principal diagnosis: Sepsis Interval history: Chart reviewed. No acute events overnight Objective - Vital Signs Vital signs: Vital Signs - 12hr 02/04/21 02/04/21 02/04/21 20:00 21:04 21:44 Temperature 102.7 F H Pulse Rate 120 H Pulse Rate [ 112 H Anterior Bilateral Throughout] Respiratory 20 Rate Respiratory 16 Rate [Anterior Bilateral Throughout] Blood Pressure 110/63 O2 Sat by Pulse 100 100 Oximetry 02/04/21 02/05/21 22:00 03:48 Temperature 98.5 F Pulse Rate 104 H Pulse Rate [ Anterior Bilateral Throughout] Respiratory 18 Rate Respiratory Rate [Anterior Bilateral Throughout] Blood Pressure 111/64 O2 Sat by Pulse 94 97 Oximetry - General Appearance General appearance: well-developed, frail EENT: ATNC Respiratory: Present: Clear to Ascultation Cardiology: regular, S1S2 Gastrointestinal: normal, no distended, other (PEG) Integumentary: warm and dry Neurologic: other (nonverbal) - Lab 02/04/21 05:59 02/04/21 05:59 Most recent lab results Calcium 9.4 mg/dL (8.4-10.2) 02/04/21 05:59 Medications & Allergies - Medications Allergies/Adverse Reactions: Allergies No Known Allergies Allergy (Verified 01/22/21 21:44) Home Medications: Home Medications Medication Instructions Recorded Confirmed Last Taken Type Lispro Insulin [HumaLOG] 0 unit SUB-Q Q6HR units 01/27/21 01/29/21 Unknown Rx Sulfamethoxazole/Trimethoprim 1 each PO BID #7 tablet 01/27/21 01/29/21 Unknown Rx [Bactrim DS TAB] Active Medications: Generic Name Dose Route Start Last Admin Trade Name Freq PRN Reason Stop Dose Admin Acetaminophen 650 mg 01/29/21 12:28 02/04/21 23:17 Acetaminophen 325 Mg Tab PO 650 mg Q4H PRN Administration Pain MILD(1-3)/Fever >100.5/STUART Albuterol/Ipratropium 1 ampul 01/29/21 14:00 02/05/21 07:07 Ipratropium/Albuterol Sulfate 3 Ml Ampul.Neb IH Not Given Q6HRT [facility] Lipase/Protease/Amylase 1 each 01/29/21 15:05 Lipase 10,500/Protease 25,000/Amylase 43,750 (Units) Dr Cap FEEDTUBE PRN PRN For Clogged Feeding Tube Famotidine 10 mg 01/30/21 07:30 02/04/21 08:00 Famotidine 10 Mg Tab PO Not Given QDAC [facility] Heparin Sodium (Porcine) 5,000 unit 01/29/21 14:00 02/05/21 06:09 Heparin 5,000 Unit/1 Ml Vial SUB-Q 5,000 unit Q8HR GLORIA Administration Hydralazine HCl 5 mg 01/29/21 12:28 Hydralazine 20 Mg/1 Ml Inj IV Q30MIN PRN Hypertension Cefepime HCl 1 gm in 100 mls @ 200 mls/hr 01/29/21 15:00 02/04/21 15:41 Cefepime/Ns 1 Gm/100 Ml IV 200 mls/hr Q24H GLORIA Administration Protocol Sodium Chloride 100 mls @ 999 mls/hr 01/30/21 10:00 Nacl 0.9% IV SAROJ PRN Hypotension Insulin Human Lispro 0 unit 01/29/21 18:00 02/05/21 06:13 Insulin Lispro 100 Unit/Ml SUB-Q Not Given Q6HR [facility] Protocol Simple Syrup 15 ml 01/29/21 15:05 Simple Syrup 15 Ml FEEDTUBE PRN PRN Hypoglycemia Simple Syrup 30 ml 01/29/21 15:05 Simple Syrup 15 Ml FEEDTUBE PRN PRN Hypoglycemia Sodium Bicarbonate 325 mg 01/29/21 15:05 Sodium Bicarbonate 325 Mg Tab FEEDTUBE PRN PRN For Clogged Feeding Tube Sodium Hypochlorite 1 applic 02/02/21 12:00 Sodium Hypochlorite, Dakin's 1/2 Strength (0.25%) 473 Ml Topical Soln TP Q12H PRN Wound Care
[2021-02-05] MEDS: FAMOTIDINE 10 MG TAB PO SCH (08:46)
--- NOTE | 2021-02-05 13:23 | Discharge Summary ---
Providers - Providers Date of Admission: 01/29/21 10:20 Date of discharge: 02/05/21 Attending physician: KAL BAI 01/29/21 10:41 Consult to Physician [CONS] Routine Comment: Consulting Provider: WE[facility] [place] Physician Instructions: Reason For Exam: fever 01/29/21 12:26 Consult to Physician [CONS] Routine Comment: Consulting Provider: LLUVIA CHEUNG Physician Instructions: Reason For Exam: ESRD 01/29/21 15:05 Consult to Dietitian/Nutrition [CONS] Routine Physician Instructions: Assess nutrtn needs, initiate, modify, manage TF Reason For Exam: Reason for Consult: Write/Manage Tube Feeding Reason for Consult: Write/Manage Tube Feeding 01/30/21 07:02 Consult to Wound/ET Nurse [CONS] Routine Reason For Exam: wound eval 01/30/21 09:59 Consult to Physician [CONS] Routine Comment: Consulting Provider: JASON HARPER Physician Instructions: Reason For Exam: elevated troponin 02/01/21 15:55 Consult to Physician [CONS] Routine Comment: Consulting Provider: NENA KEY Physician Instructions: Reason For Exam: sacral wound 02/01/21 16:07 Consult to Case Management [CONS] Routine Services Needed at Discharge: Other Notified:: cm notified Additional Physician Instructions: hospice Primary care physician: DEICER ELEMENT W[employer]ER [facility]ACHINE Hospitalization Condition: Fair Pertinent studies: CT scan abdomen pelvis was negative for pneumonia however her scattered peritoneal nodules consistent with peritoneal carcinomatosis Did explain to family member about findings. No viable treatment options at this time. Patient to return on hospice services Hospital course: 65-year-old chronically ill male with a history of CVA, quadriplegia, dysphagia with PEG tube placement end-stage renal disease with stage IV sacral decubitus nonverbal presented for the second time with picture of severe sepsis febrile with tachypnea and leukocytosis. Patient admitted on 01 24-01 27 with similar findings. Was thought to be secondary to sepsis with sacral decubitus. Currently patient has been afebrile. ID has evaluated patient thought patient has been treated with antibiotics for an extended period of time is sufficient to discontinue antibiotics which I agree. We will watch wound closely. Chronic osteo-. Patient was dialyzed here and also had elevated troponin diagnosed wi th type II non-ST elevation MO. Patient also has had for hepatitis C not a candidate for treatment. Patient be discharged in a chronically ill state consistent with his hospice diagnosis and poor prognosis Disposition: DC/[place]-03 SNF W [facility] CERT Final Discharge Diagnosis (Prints w/discharge instructions): Severe sepsis - Discharge Diagnoses (1) Elevated troponin Status: Acute (2) SIRS (systemic inflammatory response syndrome) Status: Acute Comment: Severe sepsis most likely secondary to infected sacral decubitus ulcer osteomyelitis. Has been treated with cefepime for greater than 7 days also treated with antibiotics from 01 24-01 27. ID recommends discontinuing antibiotics and observation with transfer to hospice services and local wound care at the nursing facility as indicated. (3) Diabetes Status: Acute Comment: Fair control patient on PEG tube placement will treat with sliding scale insulin for now. (4) ESRD needing dialysis Status: Acute Comment: End-stage renal disease continue dialysis Monday. (5) Pressure ulcer of sacral region, stage 4 Status: Acute Comment: Infected sacral decubitus ulcer treated now has good granulation tissue. Local wound care provided debridement if necessary transfer back to nursing facility. Patient be discharged hospice services. (6) Hepatitis C Status: Acute Comment: Patient not a candidate for any treatment. (7) Peritoneal carcinoma Status: Acute (8) Peritoneal carcinomatosis Status: Acute (9) Peritoneal carcinoma Status: Acute (10) Peritoneal carcinomatosis Status: Acute Comment: Spoke with family patient CT scan abdomen showed evidence of possible peritoneal carcinomatosis. Patient clearly not a candidate for any invasive treatment or further disease directed therapy. Hospice services appropriate. Core Measure Documentation - Palliative Care Palliative Care/ Comfort Measures: Not Applicable - Core Measures Any of the following diagnoses?: none Exam - Constitutional Vitals: Temp Pulse Resp BP Pulse Ox 98.5 F 125 H 16 111/64 97 02/05/21 03:48 02/05/21 08:53 02/05/21 07:58 02/05/21 03:48 02/05/21 09:08 General appearance: Present: no acute distress - Respiratory Respiratory: bilateral: diminished (Otherwise clear) - Cardiovascular Rhythm: regular - Extremities Extremity abnormal: edema, other (Stage IV decubitus ulcers sacrum.) - Abdominal General gastrointestinal: Present: soft, non-tender, non-distended, normal bowel sounds, other (PEG tube functioning no evidence of infection.) - Musculoskeletal Musculoskeletal: other (Quadriplegia) - Psychiatric Psychiatric: other (Unresponsiveness encephalopathy.) - Neurologic Neurologic: focal deficits Plan Activity: other (Bedbound) Weight Bearing Status: Non-Weight Bearing Diet: other (PEG tube feedings) Wound: per wound nurse instructions Follow up with: PRIMARY CARE, [Primary Care Provider] - 3-5 Days
[2021-02-05 13:41] VITALS: BP 101/58
[2021-02-05] MEDS: ACETAMINOPHEN 325 MG TAB PO PRN (13:44)
[2021-02-05] MEDS: CEFEPIME/NS 1 GM/100 ML 1 GM/100 ML BAG IV SCH (15:06)
--- NOTE | 2021-02-05 17:42 | Progress Note ---
Assessment and Plan - Patient Problems (1) Elevated troponin Current Visit: Yes Status: Acute Plan to address problem: Nonspecific, isolated troponin elevation in the patient with end-stage renal disease on hemodialysis. No acute cardiac complaints, left ventricular ejection fraction 60 to 65% on echocardiogram, will manage conservatively. Subjective Date of service: 02/05/21 Principal diagnosis: Sepsis Interval history: Patient is awake, but noncommunicative, no acute distress. Objective Vital Signs Temp Pulse Pulse Pulse Resp Resp BP 02/05/21 16:22 98.3 F 02/05/21 15:00 99 F 02/05/21 13:40 101.0 F H 122 H 18 101/58 02/05/21 13:22 115 H 16 02/05/21 09:08 02/05/21 08:53 125 H 02/05/21 07:58 114 H 16 02/05/21 03:48 98.5 F 104 H 18 111/64 02/04/21 22:00 02/04/21 21:44 102.7 F H 120 H 20 110/63 02/04/21 21:04 02/04/21 20:00 112 H 16 Pulse Ox 02/05/21 16:22 02/05/21 15:00 02/05/21 13:40 99 02/05/21 13:22 02/05/21 09:08 97 02/05/21 08:53 97 02/05/21 07:58 02/05/21 03:48 97 02/04/21 22:00 94 02/04/21 21:44 100 02/04/21 21:04 100 02/04/21 20:00 - Physical Examination General: Cachectic, Other (Noncommunicative) HEENT: Positive: PERRL Neck: Positive: neck supple Cardiac: Positive: Reg Rate and Rhythm Lungs: Positive: Decreased Breath Sounds Neuro: Positive: Weakness Abdomen: Positive: Soft Skin: Positive: Clear Extremities: Absent: edema - Labs and Meds Comprehensive Metabolic Panel 02/05/21 Range/Units 08:46 Potassium 4.5 (3.6-5.0) mmol/L
== END 2021-02-05 17:20 | DRG 871 ==
LOC: ED 05:45 → 3A 10:20
PROVIDERS: ADMIT Internal Medicine; ATTEND Internal Medicine
PROC: 5A1D70Z Performance of Urinary Filtration, Intermittent, Less than 6 Hours Per Day (ICD-10-PCS; 2021-01-30)
PROC: 30233N1 Transfusion of Nonautologous Red Blood Cells into Peripheral Vein, Percutaneous Approach (ICD-10-PCS; principal; 2021-01-31)
PROC: 5A1D70Z Performance of Urinary Filtration, Intermittent, Less than 6 Hours Per Day (ICD-10-PCS; 2021-02-02)
PROC: 5A1D70Z Performance of Urinary Filtration, Intermittent, Less than 6 Hours Per Day (ICD-10-PCS; 2021-02-04)
DX: A41.9 Sepsis, unspecified organism (principal); N18.6 End stage renal disease; L89.154 Pressure ulcer of sacral region, stage 4; J96.01 Acute respiratory failure with hypoxia; R65.20 Severe sepsis without septic shock; E11.22 Type 2 diabetes mellitus with diabetic chronic kidney disease; D63.1 Anemia in chronic kidney disease; Z20.822 Contact with and (suspected) exposure to COVID-19; E87.0 Hyperosmolality and hypernatremia; B19.20 Unspecified viral hepatitis C without hepatic coma; C48.2 Malignant neoplasm of peritoneum, unspecified; E11.65 Type 2 diabetes mellitus with hyperglycemia; I50.9 Heart failure, unspecified; I13.2 Hypertensive heart and chronic kidney disease with heart failure and with stage 5 chronic kidney disease, or end stage renal disease; Z86.73 Personal history of transient ischemic attack (TIA), and cerebral infarction without residual deficits; Z79.899 Other long term (current) drug therapy; Z93.1 Gastrostomy status
CPT/HCPCS: 36415; 71045; 71260; 74177; 78580; 80048; 80053; 80061; 80202; 82140; 82728; 82805; 82962; 83615; 83735; 84132; 84145; 84484; 85007; 85014; 85018; 85025; 85027; 85379; 86140; 86850; 86900; 86901; 86920; 87040; 87076; 87116; 87186; 93005; 93306; 94640; 96365; 96375; G0378; A6260; A9540; J0456; J0692; J0696; J0885; J1644; J1815; J3370; J7042; J7050; P9016; Q9967; U0003